=== PATIENT | female | born 1970 | race Caucasian/White ===

== ENCOUNTER → 2016-12-26 | Outpatient (CLI) | payer OTHER | END | disposition home or self-care (01) | LOC: C.LABSPEC 10:40 | PROVIDERS: ATTEND Urology | DX: N20.0 Calculus of kidney (principal) ==

== ENCOUNTER → 2017-01-16 | Outpatient (CLI) | payer OTHER ==
--- NOTE | 2017-01-16 15:10 | DIAGNOSTIC IMAGING REPORT ---
MRI ABDOMEN COMBO CLINICAL HISTORY: N28.89 Renal massE27.9 Adrenal mass, RIGHT FLANK PRESSURE. HYPERTENSION. TECHNIQUE: Imaging was performed prior to and following IV contrast injection. The patient was injected with 8.5 cc of intravenous Gadavist. COMPARISON STUDY: Outside noncontrast CT scan dated 12/14/2016 FINDINGS: Imaging was performed in the coronal and axial planes, before and after administration of gadolinium. There is decreased T1 and T2 signal within the lower pole of the right kidney, consistent with the patient's known 18 mm calculus. No renal masses are visualized. No hepatic masses are visualized. There is no ductal dilatation. No gallbladder abnormalities are visualized. No pancreatic masses are visualized. No splenic masses are visualized. There is no evidence of abdominal aortic aneurysm There is enlargement of the right adrenal gland, which measures approximately 4 cm.. This demonstrates 2 components. The inferior smaller component contains microscopic fat as evidenced in and out of phase imaging. The larger superior component which measures approximately 3 cm demonstrates increased T2 signal, and no microscopic or macroscopic fat. The superior component demonstrates intense heterogeneous enhancement. IMPRESSION: 1. 18 mm right renal calculus 2. 4 cm right adrenal mass which demonstrates 2 distinct elements. The larger superior element measures 3 cm, demonstrates increased T2 signal, no microscopic or macroscopic fat, and demonstrates intense heterogeneous enhancement. This lesion is not typical for a benign adenoma. Entities such as a pheochromocytoma, hypervascular metastasis, or much less likely adrenal cortical carcinoma must be considered along with an atypical appearance of a benign adenoma. Electronically signed by: Dov Nicole M.D. 01/16/2017 3:09 PM Dictated Date/Time: 01/16/2017 2:49 PM
== END | disposition home or self-care (01) ==
LOC: C.MRI 13:33
PROVIDERS: ATTEND Urology
DX: E27.9 Disorder of adrenal gland, unspecified (principal); N28.89 Other specified disorders of kidney and ureter

== ENCOUNTER → 2017-02-13 | Outpatient (CLI) | payer OTHER ==
--- NOTE | 2017-02-13 11:41 | DIAGNOSTIC IMAGING REPORT ---
ULTRASOUND OF THE THYROID GLAND CLINICAL HISTORY: Thyroid goiter. COMPARISON STUDY: No priors. TECHNIQUE: Real-time, grayscale, and color flow sonography of the thyroid gland is performed utilizing a high-frequency linear transducer. Images are reviewed in the transverse and longitudinal planes. FINDINGS: Right lobe: The right lobe of the thyroid gland is normal in size and homogeneous in echotexture, measuring 5.8 x 1.9 x 2.3 cm. There are at least 5 honeycomb nodule is identified in the right thyroid lobe measuring up to 9 mm. Left lobe: The left lobe of the thyroid gland is normal in size and homogeneous in echotexture, measuring 5.2 x 2.0 x 2.7 cm. A solid and cystic nodule in the medial midpole measures 1.2 x 0.9 x 0.9 cm. A honeycomb nodule in the lower pole measures 1.3 x 0.9 x 1.0 cm. Isthmus: The thyroid isthmus is normal in appearance and measures 0.3 cm in AP diameter. IMPRESSION: Multinodular thyroid gland as above. Electronically signed by: John Vale M.D. 02/13/2017 11:40 AM Dictated Date/Time: 02/13/2017 11:38 AM
[2017-02-13 12:27] LABS: ESTIMATED AVERAGE GLUCOSE 108 mg/dl; HA1C FLAG Normal (Normal)
[2017-02-13 13:05] LABS: ALT/SGPT 54 U/L (12-78); BLOOD UREA NITROGEN 7 mg/dl (7-18); BUN/CREATININE RATIO 9.4 (10-20); CALCIUM 9.1 mg/dl (8.5-10.1); CARBON DIOXIDE 26 mmol/L (21-32); CHLORIDE 101 mmol/L (98-107); CHOLESTEROL 269 mg/dl (0-200); CREATININE 0.77 mg/dl (0.60-1.20); GLUCOSE 85 mg/dl (70-99); POTASSIUM 3.5 mmol/L (3.5-5.1); SODIUM 136 mmol/L (136-145)
[2017-02-13 13:14] LABS: ALB/GLOB RATIO 1.2 (0.9-2); ALKALINE PHOSPHATASE 130 U/L (45-117); AST/SGOT 58 U/L (15-37); CHOLESTEROL/HDL RATIO 4.3; HDL CHOLESTEROL 62 mg/dl; LDL CHOLESTEROL CALCULATED 149 mg/dl; TRIGLYCERIDES 291 mg/dl (0-150); VERY LOW DENSITY LIPOPROT CALC 58 mg/dl
[2017-02-17 20:16] LABS: CATECH DOPAMINE 162 pg/mL; CATECH EPINEPHRINE 48 pg/mL; CATECH NOREPINEPRHINE 1595 pg/mL
== END | disposition home or self-care (01) ==
LOC: C.ULTR 10:33
PROVIDERS: ATTEND Internal Medicine Endocrinology, Diabetes & Metabolism
DX: E04.9 Nontoxic goiter, unspecified (principal); E27.9 Disorder of adrenal gland, unspecified

== ENCOUNTER 2017-03-21 05:03 | Inpatient (IN) | payer OTHER ==
[2017-03-04 09:33] VITALS: BMI 29.0
--- NOTE | 2017-03-04 10:01 | PAT Medication Instructions ---
Service Date Mar 04, 2017. Current Home Medication List Amlodipine (Norvasc), 10 MG PO QAM Phenoxybenzamine HCl (Phenoxybenzamine Hydrochl), 2 CAP PO BID Propranolol (Inderal), 80 MG PO HS Varenicline (Chantix), 1 TAB PO BID Medication Instructions For Your Scheduled Surgery - Hold the following medications the morning of surgery: Varenicline (Chantix), 1 TAB PO BID - Take the following medications the morning of surgery with a sip of water OTHERWISE NOTHING TO EAT OR DRINK AFTER MIDNIGHT: Amlodipine (Norvasc), 10 MG PO QAM Phenoxybenzamine HCl (Phenoxybenzamine Hydrochl), 2 CAP PO BID - Take the following medications as scheduled the night before surgery: Phenoxybenzamine HCl (Phenoxybenzamine Hydrochl), 2 CAP PO BID Propranolol (Inderal), 80 MG PO HS Varenicline (Chantix), 1 TAB PO BID If you have any questions please call us at [phone] or [phone] or [phone]
[2017-03-04 10:09] LABS: BASO % 0.5 %; BASO ABS # 0.04 K/uL (0-0.2); COMPLETE YES; EOS % 4.5 %; HEMATOCRIT 33.7 % (37-47); IG% 0.2 %; LYMPH % 30.6 %; LYMPH ABS # 2.54 K/uL (1.2-3.4); MEAN CORPUSCULAR HEMOGLOBIN 24.5 pg (25-34); MEAN CORPUSCULAR HGB CONC 30.6 g/dl (32-36); MEAN PLATELET VOLUME 9.5 fL (7.4-10.4); MONO % 6.7 %; NEUT % 57.5 %; PLATELET COUNT 379 K/uL (130-400); RED BLOOD COUNT 4.21 M/uL (4.2-5.4); WHITE BLOOD COUNT 8.31 K/uL (4.8-10.8)
[2017-03-04 10:20] LABS: BUN/CREATININE RATIO 10.8 (10-20); CALCIUM 8.8 mg/dl (8.5-10.1); CREATININE 0.74 mg/dl (0.60-1.20); POTASSIUM 3.7 mmol/L (3.5-5.1)
[2017-03-04 10:27] LABS: URINE APPEARANCE CLOUDY (CLEAR); URINE BILIRUBIN NEG (NEG); URINE COLOR DK YELLOW; URINE EPITHELIAL CELL AUTO 20-30 /lpf (0-5); URINE NITRITE POS (NEG); URINE SPECIFIC GRAVITY 1.019 (1.000-1.030); UROBILINOGEN NEG (NEG)
--- NOTE | 2017-03-04 10:32 | DIAGNOSTIC IMAGING REPORT ---
CHEST PREADMISSION(PA/LAT) CLINICAL HISTORY: Preoperative chest COMPARISON STUDY: No previous studies for comparison. FINDINGS: The cardiac and mediastinal contours are normal. There is no evidence of focal pulmonary consolidation. There is no evidence of failure. No pleural effusions are visualized.[ IMPRESSION: No active disease in the chest. Electronically signed by: Dov Nicole M.D. 03/04/2017 10:30 AM Dictated Date/Time: 03/04/2017 10:30 AM
[2017-03-04 10:34] LABS: MANUAL MICROSCOPIC REQUIRED? NO; REVIEW REQ? NO
[2017-03-21] VITALS (19 sets, daily range): BP systolic 82–145; BP diastolic 55–81; PULSE 74–94; TEMP 36.6–36.9; O2SAT 92–98; Ht 180.3 cm; Wt 107.5 kg
[~2017-03-21] VITALS: Ht 180.3 cm; Wt 107.5 kg
[~2017-03-21 05:03] MED LIST: AMLO-114 PO; CHN/1 PO; PROP80TA2 PO; [UNRECOGNIZED DRUG - CODE] PO
[2017-03-21] MEDS ORDERED: SCOPOLAMINE 1.5 MG TDSY TD SCH (06:00)
[2017-03-21] MEDS ORDERED: CEFAZOLIN 3000MG IV PUSH 15 ML IV SCH (06:00)
[2017-03-21] MEDS ORDERED: LACTATED RINGER'S 1000ML IV SCH (06:00)
[2017-03-21] MEDS ORDERED: LIDOCAINE HCL 2% 2 ML VIAL (20MG/ML) ONE (06:59)
[2017-03-21] MEDS ORDERED: PROPOFOL IV EMULSION 10 MG/ML 20 ML VIAL IV ONE (06:59)
[2017-03-21] MEDS ORDERED: DEXAMETHASONE SOD INJ 4 MG/ML VIAL ONE (06:59)
[2017-03-21] MEDS ORDERED: ONDANSETRON INJ 2 MG/ML 2 ML VIAL ONE (06:59)
[2017-03-21] MEDS ORDERED: EpHEDrine SULFATE INJ 50 MG/ML AMP IV PRN (07:00)
[2017-03-21] MEDS ORDERED: ONDANSETRON INJ 2 MG/ML 2 ML VIAL IV PRN (07:00)
[2017-03-21] MEDS ORDERED: ATROPINE SULFATE 0.1 MG/ML 5ML SYR IV PRN (07:00)
[2017-03-21] MEDS ORDERED: FENTANYL CITRATE INJ 50 MCG/1 ML 2 ML VIAL ONE ×4 (07:00→12:03)
[2017-03-21] MEDS ORDERED: MIDAZOLAM HCL 1 MG/ML 2ML VIAL ONE (07:00)
[2017-03-21] MEDS ORDERED: SODIUM NITROPRUSSIDE 50 MG/2 ML ONE (07:09)
--- NOTE | 2017-03-21 07:19 | History & Physical Bridge Note ---
H&P Re-Evaluation Bridge Note: I have examined the patient, reviewed the History & Physical and in the interval since the performance of the History & Physical I have noted the following changes of clinical significance: No changes noted Right Adrenalectomy, Robot Asst Laparoscopic.
[2017-03-21] MEDS ORDERED: BUPIVACAINE 0.5 % 5 MG/1 ML MPF 30ML VIAL ONE (07:31)
[2017-03-21] MEDS ORDERED: TISSEEL FIBRIN SEALANT 10ML TOP ONE (09:40)
[2017-03-21] MEDS ORDERED: PHENYLEPHRINE HCL INJ 10 MG/ML VIAL ONE (10:05)
[2017-03-21] MEDS ORDERED: EpHEDrine SULFATE 50MG/5ML SYR ONE (10:05)
[2017-03-21] MEDS ORDERED: PHENYLEPHRINE 100MCG/ML 5ML SYR ONE (10:05)
[2017-03-21] MEDS ORDERED: EpINEphrine INJ 1MG/ML AMP 1 MG/ML AMP ONE (10:05)
[2017-03-21] MEDS ORDERED: ROCURONIUM BROMIDE 10 MG/ML 5 ML VIAL IV ONE (10:10)
[2017-03-21] MEDS: FENTANYL CITRATE INJ 50 MCG/1 ML 2 ML VIAL IV PRN ×3 (11:05→12:02)
--- NOTE | 2017-03-21 11:24 | [facility] Operative Report ---
Operative Report Operative Date Mar 21, 2017. Pre-Operative Diagnosis Adrenal Nodule, Pheochromocytoma, Nephrolithiasis. Post-Operative Diagnosis same as preop Procedure(s) Performed Robot Assisted Right Laparoscopic Adrenalectomy Surgeon Dr. Ramirez Rodriguez Planning Director Surgeon(s) Dr. Gregorio Lea; CRISTINA Holbrook Estimated Blood Loss 50mL Findings Large right adrenal mass. Small adhesions to the abdominal wall on right lower quadrant. Fluids See Anes Report Specimens Right Adrenal Gland Drains None Anesthesia General Complication(s) None Disposition Recovery Room / PACU Indications Patient found to have functional adrenal mass which was determined to be a pheochromocytoma. Patient had labile pressures and was started on first alpha blockade followed by beta blockade by a multidisciplinary team including primary care, cardiology, endocrinology, and urology. Patient was agreeable and consented for the procedure. Description of Procedure Patient was consented and brought back to the operating room. Patient was placed under anesthesia in the supine position. An arterial line for critical pressure monitoring had been placed by anesthesia. Due to diagnosis of pheochromocytoma the patient had aggressive management and blockade preoperatively as well as fluid resuscitation. Anesthesia was closely and critically monitoring the patient throughout the case. The patient was transferred to the lateral position. Appropriate padding and gel rolls were placed. The patient was secured and positioned appropriately. Patient was then prepped and draped in the regular sterile fashion. A time out was completed. With the timeout completed an incision was marked medial to the 12th rib between the midaxillary and midclavicular line. A Varess needle was then inserted into the abdominal cavity and tested with injection and aspiration of saline. No bleeding or other concerning findings. The Varess then was attached to insufflation and the abdomen insufflated to 15mmhg with CO2. A camera port was then placed and the camera laparoscope was placed. The area was examined and no injury visualized. Small amount of adhesions were noted in the right lower quadrant. Two 8 mm robot ports were then placed as well as a 5 mm port for liver retraction and 2 x 10mm assistant oceanographer ports. All were placed under direct visualization. The robot was then docked and the active arms advanced under direct visualization. At this point after docking and activation, the right colon was released at the line of toldt and retracted medial. The liver was freed from lateral attachments and retracted superiorly. The vena cava was then exposed distal to the kidney. Great care was taken to limit manipulation of the adrenal gland/ mass. Dissection was taken along the cava up to the insertion of the right renal vein. At the renal vein, the cava was then dissected superior. A small vein was appreciated superior to the renal vein. It was clipped with hem-a-lock clips and divided. The right lateral edge of the cava was further dissected superiorly. Another small vein was appreciated and clipped and divided in a similar fashion. With clipping and division of this vein, the patient had a decrease in blood pressure and required rapid resuscitation as was expected due to the diagnosis of pheochromocytoma. The patient responded appropriately and blood pressure returned to a normal expected level. Further dissection was taken superiorly to the intersection of the liver and the cava. All attachments were freed and another small vessel was clipped and divided. The inferior and posterior edges of the adrenal gland and surrounding fat were dissected and freed. Small vessels on the inferior edge were controlled with electrocautery. The superior attachments to the liver were also freed. Finally , lateral attachments were freed and the adrenal gland was mobilized and bagged. The entire wound bed was examined. No bleeding or other areas of concern were noted. The bed was instilled with a sealant for assistance with hemostasis. The liver, superior kidney, renal hilum, and abdominal wall were all inspected with no injury or areas of concern. The specimen had been bagged and placed through the superior assistant oceanographer port. At this point, retraction of the liver was released. The ports were visualized with no areas of concern or injury. The robot was undocked and the insufflation released. Ports were then removed. The incision lateral to the umbilicus was opened with a scalpel and the subcutaneous tissue and fascia opened to allow intact removal of the specimen. The area was cleaned. The fascial layers of the camera port and the paramedian incision were closed with a 1-0 PDS suture. The subcutaneous tissues of the paramedian incision were closed with an 1-0 Vicryl. The skin was closed with a running 4-0 monocryl suture. Skin glue was placed. Dr. Gregorio Lea and CRISTINA Holbrook assisted with port placement, robot docking, port removal/closure, and skin closure. Dr. Lea also first assisted and was involved in surgical dissection, clipping/control of vessels, and anatomic identification as well as close monitoring of patient status during critical portions of the procedure. The patient was cleaned, aroused from anesthesia, and transferred to the pacu in stable condition having tolerated the procedure well with no complications. I was present and participated in all aspects of the procedure. The patient will be monitored in the PACU until transferred. I attest to the content of the Intraoperative Record and any orders documented therein. Any exceptions are noted below.
[2017-03-21 11:26] LABS: HEMATOCRIT 31.8 % (37-47); MEAN CELL VOLUME 79.3 fL (80-100); MEAN CORPUSCULAR HEMOGLOBIN 24.4 pg (25-34); MEAN PLATELET VOLUME 9.2 fL (7.4-10.4); PLATELET COUNT 306 K/uL (130-400); RED BLOOD COUNT 4.01 M/uL (4.2-5.4); WHITE BLOOD COUNT 15.17 K/uL (4.8-10.8)
[2017-03-21 11:29] LABS: MEAN CORPUSCULAR HGB CONC 30.8 g/dl (32-36)
--- NOTE | 2017-03-21 11:34 | Anesthesiology Progress Note ---
Anesthesia Post Op Note Date & Time Mar 21, 2017 at 11:34 Vital Signs Pain Intensity: 4 Vital Signs Past 12 Hours Date Time Temp Pulse Resp B/P (MAP) Pulse Ox O2 Delivery O2 Flow Rate FiO2 03/21/17 11:25 76 14 119/70 (80) 94 Nasal Cannula 4 128/71 (91) 03/21/17 11:15 79 14 120/72 (79) 94 Nasal Cannula 4 119/63 (83) 03/21/17 11:05 77 14 122/79 (103) 99 Mask 10 03/21/17 10:55 70 12 125/75 (91) 97 Mask 10 126/64 (86) 03/21/17 10:45 36.1 72 12 117/87 (94) 98 Mask 10 133/67 03/21/17 05:35 36.8 86 20 104/72 98 Room Air Notes Mental Status: alert / awake / arousable, participated in evaluation Pt Amnestic to Procedure: Yes Nausea / Vomiting: adequately controlled Pain: adequately controlled Airway Patency, RR, SpO2: stable & adequate BP & HR: stable & adequate Hydration State: stable & adequate Anesthetic Complications: no major complications apparent
[2017-03-21 11:46] LABS: CALCIUM 7.8 mg/dl (8.5-10.1); CREATININE 0.84 mg/dl (0.60-1.20); POTASSIUM 4.3 mmol/L (3.5-5.1)
[2017-03-21] MEDS: LACTATED RINGER'S 1000ML 1,000 ML IV SCH ×3 (13:31→23:22)
[2017-03-21 13:32] LABS: PROTHROMBIN TIME (PATIENT) 10.6 SECONDS (9.0-12.0)
[2017-03-21] MEDS: HYDROmorphone INJ 1 MG/ML SYR IV PRN ×3 (13:32→21:28)
[2017-03-21] MEDS: ACETAMINOPHEN 500 MG TAB PO SCH ×2 (15:24→19:38)
[2017-03-21] MEDS: OXYCODONE/ACETAMINOPHEN 7.5-325 TAB PO PRN ×3 (15:28→23:23)
--- NOTE | 2017-03-21 15:52 | Cardiology Consultation ---
Cardiology Consultation Date of Consultation: Mar 21, 2017. Requesting Physician: Michael Reason for Consultation: pheochromocytoma Pt evaluation today including: conversation w/ patient, physical exam, chart review, lab review, review of studies, conversation w/ consultant teacher, review of inpatient medication list History of Present Illness Patient is a 46-year-old woman who underwent a resection of pheochromocytoma earlier today. She was incidentally discovered to have severe high blood pressure and underwent a routine evaluation for hypertension. Based on her symptoms evaluation for pheochromocytoma was performed which did reveal evidence of elevated urine metanephrines and eventual diagnosis of an adrenal mass. The preoperative. She has been started on both nonselective alpha and beta blockade with good effect. Her surgery appears to have been uncomplicated today with the exception of a brief period of hypotension. At the time of the interview the patient does have some operative discomfort. She denies any dizziness or lightheadedness. She denies any sense of flushing. She has little appetite currently and is drowsy. At the time of her diagnosis the patient was essentially asymptomatic. She did report occasional feelings of anxiety and jitteriness. She also had periods of flushing on occasion. With institution of medical therapy she had very mild symptoms of orthostatic hypotension on occasion. She has been ingesting higher amounts of salt and maintain good fluid intake by direction. Past Medical/Surgical History Hyperlipidemia Pheochromocytoma Nephrolithiasis Multinodular goiter Surgical history Tonsillectomy Family History No premature coronary disease Social History Smoking Status: Current Every Day Smoker History of Alcohol Use: No Review of Systems Patient is currently drowsy and somewhat sedated. Complete review of systems was unobtainable. All Other Systems: Reviewed and Negative Allergies Coded Allergies: Iodine (Verified Allergy, Unknown, HIVES, 03/21/17) PT REPORTS IODINE ALLERGY WAS R/T INJECTABLE DYE - DENIES ALLERGY WITH TOPICAL IODINE Medications Current Inpatient Medications Medications (Trade) Dose Ordered Sig/Kedar Route Start Time Stop Time Status Last Admin Dose Admin Cefazolin Sodium 15 ml @ 3 mls/min PREOP IV 03/21/17 06:00 03/21/17 18:00 03/21/17 07:32 3 MLS/MIN Lactated Ringer's 1,000 ml @ 60 mls/hr [id number] IV 03/21/17 06:00 03/21/17 22:39 03/21/17 05:50 60 MLS/HR Miscellaneous (Remove Transderm-Scop Patch) 1 ea Q72H N/A 03/24/17 06:00 03/24/17 06:01 Miscellaneous Information (Check Scopolamine Patch Placement) 1 ea QS N/A 03/21/17 16:00 03/24/17 05:59 Acetaminophen (Tylenol Tab) 500 mg Q6H PO 03/21/17 14:00 04/20/17 13:59 Cefazolin Sodium 3000 mg/Syringe 15 ml @ 3 mls/min Q8H IV 03/21/17 20:00 03/22/17 04:04 Docusate Sodium (coLACE CAP) 100 mg BID PO 03/21/17 21:00 04/20/17 20:59 Heparin Sodium (Porcine) (Heparin Sq 5000 Unit/0.5ml) 5,000 unit Q12H SQ 03/21/17 19:00 04/20/17 18:59 Hydromorphone HCl (Dilaudid Inj) 1 mg Q2H PRN IV 03/21/17 10:45 04/04/17 10:44 03/21/17 13:32 1 MG Lactated Ringer's 1,000 ml @ 150 mls/hr Q6H40M IV 03/21/17 13:00 04/20/17 12:59 03/21/17 13:31 150 MLS/HR Ondansetron HCl (Zofran Inj) 4 mg Q6H PRN IV 03/21/17 10:45 04/20/17 10:44 Oxycodone/ Acetaminophen (Percocet 7.5-325MG Tab) Hold Tylenol if given Q4H PRN PO 03/21/17 10:45 04/04/17 10:44 Amlodipine Besylate (Norvasc Tab) 10 mg QAM PO 03/22/17 09:00 04/21/17 08:59 Propranolol HCl (Inderal Tab) 80 mg HS PO 03/21/17 21:00 04/20/17 20:59 Miscellaneous Information (Order Awaiting Action) 1 ea QS N/A 03/21/17 16:00 04/20/17 15:59 Miscellaneous Information (Order Awaiting Action) 1 ea QS N/A 03/21/17 16:00 04/20/17 15:59 Physical Exam Vital Signs Past 12 Hours Date Time Temp Pulse Resp B/P (MAP) Pulse Ox O2 Delivery O2 Flow Rate FiO2 03/21/17 14:31 78 14 102/68 (79) 94 Nasal Cannula 4.0 03/21/17 14:16 78 15 92/69 (77) 94 Nasal Cannula 4.0 03/21/17 14:15 80 12 91/74 (80) 94 Nasal Cannula 4.0 03/21/17 14:01 74 15 89/73 (78) 94 Nasal Cannula 4.0 03/21/17 14:00 76 14 87/67 (74) 94 Nasal Cannula 4.0 03/21/17 13:01 78 21 125/76 (103) 93 145/81 03/21/17 13:00 79 19 (100) 93 138/78 03/21/17 12:46 103/68 (89) 03/21/17 12:15 73 16 115/73 (89) 94 Nasal Cannula 4 120/55 (77) 03/21/17 12:05 76 16 110/75 (85) 94 Nasal Cannula 4 127/59 (81) 03/21/17 11:50 70 16 107/76 (89) 95 Nasal Cannula 4 129/66 (87) 03/21/17 11:35 36.4 72 16 112/77 (89) 94 Nasal Cannula 4 131/69 (90) 03/21/17 11:25 76 14 119/70 (80) 94 Nasal Cannula 4 128/71 (91) 03/21/17 11:15 79 14 120/72 (79) 94 Nasal Cannula 4 119/63 (83) 03/21/17 11:05 77 14 122/79 (103) 99 Mask 10 03/21/17 10:55 70 12 125/75 (91) 97 Mask 10 126/64 (86) 03/21/17 10:45 36.1 72 12 117/87 (94) 98 Mask 10 133/67 03/21/17 05:35 36.8 86 20 104/72 98 Room Air She is alert and oriented x3. Mood affect appear normal. She answered all questions appropriately. HEENT: Sclerae are anicteric. Pupils are equal and reactive to light and accommodation. Extraocular movements were intact. Neuro: Cranial nerves intact Neck: Examination of the submandibular region did not reveal any significant lymphadenopathy. Carotids are palpable bilaterally and free of bruits on auscultation. There was no evidence of jugular venous distention. Lungs: Lungs are clear to auscultation bilaterally. There are no rales wheezes or rhonchi. She has normal respiratory effort without use of accessory muscles. There is normal pulmonary excursion. Cardiac: The rhythm was regular. S1 and S2 were normal. There are no murmurs on examination. The PMI was not markedly displaced on palpation. Extremities: Patient has bilateral radial pulses that are equal in intensity. There is no evidence cyanosis or clubbing. There was no evidence of significant peripheral edema bilaterally. Skin: There are no rashes noted on examination today. Data Laboratory Results: Last 24 Hours Test 03/21/17 11:06 03/21/17 13:07 White Blood Count 15.17 K/uL Red Blood Count 4.01 M/uL Hemoglobin 9.8 g/dL Hematocrit 31.8 % Mean Corpuscular Volume 79.3 fL Mean Corpuscular Hemoglobin 24.4 pg Mean Corpuscular Hemoglobin Concent 30.8 g/dl RDW Standard Deviation 45.8 fL RDW Coefficient of Variation 15.7 % Platelet Count 306 K/uL Mean Platelet Volume 9.2 fL Sodium Level 136 mmol/L Potassium Level 4.3 mmol/L Chloride Level 107 mmol/L Carbon Dioxide Level 25 mmol/L Anion Gap 4.0 mmol/L Blood Urea Nitrogen 9 mg/dl Creatinine 0.84 mg/dl Est Creatinine Clear Calc Drug Dose 106.1 ml/min Estimated GFR () 95.9 Estimated GFR (Non- 82.8 BUN/Creatinine Ratio 11.0 Random Glucose 116 mg/dl Calcium Level 7.8 mg/dl Prothrombin Time 10.6 SECONDS Prothromb Time International Ratio 1.0 Activated Partial Thromboplast Time 26.8 SECONDS Partial Thromboplastin Ratio 1.0 Telemetry reviewed: Normal sinus rhythm Assessment & Plan 1. Hypertension: Patient has hypertension most likely related to her pheochromocytoma. In the preoperative. She appears to have good control of her blood pressure with nonselective alpha and beta antagonists. In the perioperative. She has had an element of hypotension. Seems reasonable this point to manage her expectantly. No antihypertensive the current Adriana being administered. I think the most important intervention would be good hydration. She has intravenous fluids running currently and has a Izaguirre catheter in place. Good urine output would suggest adequate intravascular volume. In the event the patient has notable Hypertension nitroprusside could be used in an urgent situation. Based on hemodynamics a standard antihypertensive regimen could be re-initiated at the time of discharge. Currently she is on amlodipine as well as beta and alpha blockade. 2. Left ventricular hypertrophy: This was reportedly severe on echocardiogram performed in the outpatient setting. Most likely this is related to her longstanding, untreated high blood pressure. I would anticipate her blood pressure being better after removal of the adrenal mass. However she will still need to be monitored for high blood pressure and perhaps continued on medications specifically beta-eddy if her blood pressures remain high. Hopefully we will see some regression of her hypertrophy over time. 3. Diastolic dysfunction: Reported as stage II on her recent echocardiogram. This likely related to severe LVH. Maintaining good hydration use of a beta- eddy would be the most effective intervention. Hopefully we will see some regression as her blood pressures come down other pheochromocytoma has been resected.
[2017-03-21] MEDS: CHECK SCOPOLAMINE PATCH PLACEMENT SCH ×2 (16:30→23:26)
--- NOTE | 2017-03-21 16:38 | Critical Care Consultation ---
Critical Care Consultation Date of Consultation: Mar 21, 2017. Attending Physician: Ramirez Rodriguez D.O. Reason for Consultation: s/p adrenalectomy for pheochromocytoma; for BP control History of Present Illness 46 yo female with Hx of HTN, smoking nephrolithiasis who was found to have significantly elevated BP as outpt as positive metanephrines confirming diagnosis of Pheochromocytoma; Patient then was found to have an adrenal mass; Pre op was treated with alpha and then beta blockers. Today she underwent elective robot assisted adrenalectomy. Intraoperatively had non significant blood loss; but is reported to have a hypotensive episode for which an Epi x 1 was given; Post op patient was extubated in the PACU and arrived to MICU in stable condition without complaints; Currently has post discomfort; denied dizziness; lightheadedness/ flushing/ pains; some anxiety is reported; Past Medical/Surgical History Hyperlipidemia Pheochromocytoma Nephrolithiasis Multinodular goiter/ s/p Adrenalectomy s/p Tonsillectomy Social History Smoking Status: Current Every Day Smoker Allergies Coded Allergies: Iodine (Verified Allergy, Unknown, HIVES, 03/21/17) PT REPORTS IODINE ALLERGY WAS R/T INJECTABLE DYE - DENIES ALLERGY WITH TOPICAL IODINE Home Medications Scheduled Amlodipine (Norvasc), 10 MG PO QAM Phenoxybenzamine HCl (Phenoxybenzamine Hydrochl), 2 CAP PO BID Propranolol (Inderal), 80 MG PO HS Varenicline (Chantix), 1 TAB PO BID Current Inpatient Medications Current Inpatient Medications Medications (Trade) Dose Ordered Sig/Kedar Route Start Time Stop Time Status Last Admin Dose Admin Cefazolin Sodium 15 ml @ 3 mls/min PREOP IV 03/21/17 06:00 03/21/17 18:00 03/21/17 07:32 3 MLS/MIN Lactated Ringer's 1,000 ml @ 60 mls/hr [id number] IV 03/21/17 06:00 03/21/17 22:39 03/21/17 05:50 60 MLS/HR Miscellaneous (Remove Transderm-Scop Patch) 1 ea Q72H N/A 03/24/17 06:00 03/24/17 06:01 Miscellaneous Information (Check Scopolamine Patch Placement) 1 ea QS N/A 03/21/17 16:00 03/24/17 05:59 Acetaminophen (Tylenol Tab) 500 mg Q6H PO 03/21/17 14:00 04/20/17 13:59 Cefazolin Sodium 3000 mg/Syringe 15 ml @ 3 mls/min Q8H IV 03/21/17 20:00 03/22/17 04:04 Docusate Sodium (coLACE CAP) 100 mg BID PO 03/21/17 21:00 04/20/17 20:59 Heparin Sodium (Porcine) (Heparin Sq 5000 Unit/0.5ml) 5,000 unit Q12H SQ 03/21/17 19:00 04/20/17 18:59 Hydromorphone HCl (Dilaudid Inj) 1 mg Q2H PRN IV 03/21/17 10:45 04/04/17 10:44 03/21/17 13:32 1 MG Lactated Ringer's 1,000 ml @ 150 mls/hr Q6H40M IV 03/21/17 13:00 04/20/17 12:59 03/21/17 13:31 150 MLS/HR Ondansetron HCl (Zofran Inj) 4 mg Q6H PRN IV 03/21/17 10:45 04/20/17 10:44 Oxycodone/ Acetaminophen (Percocet 7.5-325MG Tab) Hold Tylenol if given Q4H PRN PO 03/21/17 10:45 04/04/17 10:44 03/21/17 15:28 1 TAB Amlodipine Besylate (Norvasc Tab) 10 mg QAM PO 03/22/17 09:00 04/21/17 08:59 Propranolol HCl (Inderal Tab) 80 mg HS PO 03/21/17 21:00 04/20/17 20:59 Miscellaneous Information (Order Awaiting Action) 1 ea QS N/A 03/21/17 16:00 04/20/17 15:59 Miscellaneous Information (Order Awaiting Action) 1 ea QS N/A 03/21/17 16:00 04/20/17 15:59 Review of Systems non contributory Physical Exam Date Time Temp Pulse Resp B/P (MAP) Pulse Ox O2 Delivery O2 Flow Rate FiO2 03/21/17 16:01 36.6 83 15 138/74 (95) 92 Nasal Cannula 2.0 03/21/17 15:01 81 13 110/79 (89) 95 Nasal Cannula 4.0 03/21/17 14:31 78 14 102/68 (79) 94 Nasal Cannula 4.0 03/21/17 14:16 78 15 92/69 (77) 94 Nasal Cannula 4.0 03/21/17 14:15 80 12 91/74 (80) 94 Nasal Cannula 4.0 03/21/17 14:01 74 15 89/73 (78) 94 Nasal Cannula 4.0 03/21/17 14:00 76 14 87/67 (74) 94 Nasal Cannula 4.0 03/21/17 13:01 78 21 125/76 (103) 93 145/81 03/21/17 13:00 79 19 (100) 93 138/78 03/21/17 12:46 103/68 (89) 03/21/17 12:15 73 16 115/73 (89) 94 Nasal Cannula 4 120/55 (77) 03/21/17 12:05 76 16 110/75 (85) 94 Nasal Cannula 4 127/59 (81) 03/21/17 11:50 70 16 107/76 (89) 95 Nasal Cannula 4 129/66 (87) 03/21/17 11:35 36.4 72 16 112/77 (89) 94 Nasal Cannula 4 131/69 (90) 03/21/17 11:25 76 14 119/70 (80) 94 Nasal Cannula 4 128/71 (91) 03/21/17 11:15 79 14 120/72 (79) 94 Nasal Cannula 4 119/63 (83) 03/21/17 11:05 77 14 122/79 (103) 99 Mask 10 03/21/17 10:55 70 12 125/75 (91) 97 Mask 10 126/64 (86) 03/21/17 10:45 36.1 72 12 117/87 (94) 98 Mask 10 133/67 03/21/17 05:35 36.8 86 20 104/72 98 Room Air General Appearance: well-appearing, WD/WN, no apparent distress Head: normocephalic Eyes: PERRLA, no discharge, EOMI Neck: normal range of motion, no tenderness Respiratory: breath sounds normal, clear to auscultation Cardiovasular: regular rate/rhythm, normal S1S2 Abdomen: non tender Lower Extremities: no edema Psychiatric: normal affect Laboratory Results Last 24 Hours Test 11/30/17 11:06 03/21/17 13:07 White Blood Count 15.17 K/uL Red Blood Count 4.01 M/uL Hemoglobin 9.8 g/dL Hematocrit 31.8 % Mean Corpuscular Volume 79.3 fL Mean Corpuscular Hemoglobin 24.4 pg Mean Corpuscular Hemoglobin Concent 30.8 g/dl RDW Standard Deviation 45.8 fL RDW Coefficient of Variation 15.7 % Platelet Count 306 K/uL Mean Platelet Volume 9.2 fL Sodium Level 136 mmol/L Potassium Level 4.3 mmol/L Chloride Level 107 mmol/L Carbon Dioxide Level 25 mmol/L Anion Gap 4.0 mmol/L Blood Urea Nitrogen 9 mg/dl Creatinine 0.84 mg/dl Est Creatinine Clear Calc Drug Dose 106.1 ml/min Estimated GFR () 95.9 Estimated GFR (Non- 82.8 BUN/Creatinine Ratio 11.0 Random Glucose 116 mg/dl Calcium Level 7.8 mg/dl Prothrombin Time 10.6 SECONDS Prothromb Time International Ratio 1.0 Activated Partial Thromboplast Time 26.8 SECONDS Partial Thromboplastin Ratio 1.0 Assessment & Plan (1) Pheochromocytoma 46 yo female s/p adrenalectomy for Pheochromocytoma with stable postop BP and vitals; PLAN: Neuro - no issues Pulm - on RA s/p extubated CV - A line in place; Cardiology consult appreciated; Hypertension due to pheochromocytoma resolved; Preop c/w Norvasc, Propranolol; If BP becomes too high will use Nitroprusside as advised by cardiology; LVH noted on echo as outpt likely due to untreated hypertension per cardiology. The management is to c/w beta blockers and hydrations Hypotension postop --> c/w IVF for now; ID - on post Abx Cefazolin Renal - on IVF for relative hypotension; cr 0.8; monitor UO; aguilar in place; GI - diet as tolerated; will defer to surgery DVT prophylaxis post; I have personally spent 35 minutes of critical care time in the direct management of this patient. This is a life/limb threatening event. This includes time spent evaluating patient, direct bedside care, chart review, placing orders, interpretation of diagnostic studies, discussion with consultants, patient, and family members, as well as other required patient management activities. This time is exclusive of all separately billable procedures, and teaching time and separate from and in addition to any other critical care service time. Met with patient and immediate family, answered all the questions to the best of my ability.
[2017-03-21] MEDS: DOCUSATE SODIUM 100 MG CAP PO SCH (19:33)
[2017-03-21] MEDS: HEPARIN SOD 5000 UNIT/0.5 ML CARP SQ SCH (19:36)
[2017-03-21] MEDS: PROPRANOLOL HCL 80 MG TAB PO SCH (21:21)
[2017-03-21] MEDS: CEFAZOLIN IV 3,000 MG in SYRINGE 0 ML IV SCH (21:21)
[2017-03-22] VITALS (12 sets, daily range): BP systolic 96–120; BP diastolic 60–87; PULSE 68–88; TEMP 36.6–37; O2SAT 89–93
[2017-03-22] MEDS: HYDROmorphone INJ 1 MG/ML SYR IV PRN ×5 (01:07→19:24)
[2017-03-22] MEDS: ACETAMINOPHEN 500 MG TAB PO SCH ×4 (02:00→21:35)
[2017-03-22] MEDS: CEFAZOLIN IV 3,000 MG in SYRINGE 0 ML IV SCH (03:28)
[2017-03-22] MEDS: OXYCODONE/ACETAMINOPHEN 7.5-325 TAB PO PRN ×3 (03:29→15:48)
[2017-03-22 06:07] LABS: BASO % 0.1 %; BASO ABS # 0.02 K/uL (0-0.2); COMPLETE YES; EOS % 0.1 %; HEMATOCRIT 30.3 % (37-47); IG% 0.3 %; LYMPH % 16.4 %; LYMPH ABS # 2.46 K/uL (1.2-3.4); MEAN CELL VOLUME 80.4 fL (80-100); MEAN CORPUSCULAR HEMOGLOBIN 24.4 pg (25-34); MEAN CORPUSCULAR HGB CONC 30.4 g/dl (32-36); MEAN PLATELET VOLUME 9.1 fL (7.4-10.4); MONO % 8.3 %; NEUT % 74.8 %; PLATELET COUNT 326 K/uL (130-400); RED BLOOD COUNT 3.77 M/uL (4.2-5.4)
[2017-03-22 06:38] LABS: BUN/CREATININE RATIO 12.1 (10-20); CALCIUM 8.1 mg/dl (8.5-10.1); CREATININE 0.93 mg/dl (0.60-1.20); POTASSIUM 3.8 mmol/L (3.5-5.1)
[2017-03-22] MEDS: CHECK SCOPOLAMINE PATCH PLACEMENT SCH ×3 (08:00→23:07)
--- NOTE | 2017-03-22 08:03 | Progress Note ---
Subjective Date of Service: Mar 22, 2017. (Christiana Haro CRNP) Subjective Pt evaluation today including: conversation w/ patient, chart review, lab review Voiding: aguilar catheter in place (patent, draining clear, yellow urine) 46 yo female s/p right adrenalectomy for pheochromocytoma. One episode of hypotension overnight, but has since improved. Pt c/o abdominal pain this morning. Denies n/v. Tolerating clear liquids. Denies flatus or BM. She has been OOB to chair. Labs stable. I&Os acceptable. (Christiana Haro CRNP) Pt evaluation today including: conversation w/ patient Pain: Moderate this Am with distension. Pain medications help PO Intake: Clears Voiding: aguilar catheter in place Patient distended this AM and having some pain with deep inhalation. Pain meds improve greatly. OOB. Tolerating clears. Aguilar draining well. No flatus or bm 1 episode of hypotension last pm otherwise vital have been stable. No other changes or issues. (Ramirez Rodriguez, D.O.) Problem List 1. Pheochromocytoma 2. POD #1 s/p Right Adrenalectomy (Ramirez Rodriguez, D.O.) Review of Systems Constitutional: No fever, No chills Respiratory: No shortness of breath Cardiac: No chest pain Abdomen: No pain, No nausea, No vomiting Female : No hematuria Heme: No abnormal bleeding/bruising (Christiana Haro CRNP) All Other Systems: Reviewed and Negative (All reviewed. Pertinent positives and negatives in HPI) (Ramirez Rodriguez, D.O.) Objective Vital Signs Date Time Temp Pulse Resp B/P (MAP) Pulse Ox O2 Delivery O2 Flow Rate FiO2 03/22/17 06:00 74 23 118/77 (91) 92 Nasal Cannula 2.0 03/22/17 04:00 91 Nasal Cannula 2.0 03/22/17 04:00 36.9 87 16 119/87 (98) 91 Nasal Cannula 2.0 03/22/17 02:00 81 15 109/74 (86) 91 Nasal Cannula 2.0 03/22/17 00:01 36.7 79 15 120/67 (84) 90 Nasal Cannula 2.0 03/21/17 23:59 93 Nasal Cannula 2.0 03/21/17 22:01 81 20 111/72 (85) 94 Nasal Cannula 2.0 03/21/17 21:06 81 16 114/71 (85) 95 Nasal Cannula 2.0 03/21/17 21:01 79 15 82/67 (72) 94 Nasal Cannula 2.0 03/21/17 20:01 36.9 82 15 118/68 (85) 94 Nasal Cannula 2.0 03/21/17 20:00 Nasal Cannula 2.0 03/21/17 19:02 94 20 136/71 (92) 92 Nasal Cannula 2.0 03/21/17 18:01 83 14 100/55 (70) 92 Nasal Cannula 2.0 03/21/17 17:01 89 18 133/71 (91) 92 Nasal Cannula 2.0 03/21/17 16:01 36.6 83 15 138/74 (95) 92 Nasal Cannula 2.0 03/21/17 16:00 Nasal Cannula 2.0 03/21/17 15:01 81 13 110/79 (89) 95 Nasal Cannula 4.0 03/21/17 14:31 78 14 102/68 (79) 94 Nasal Cannula 4.0 03/21/17 14:16 78 15 92/69 (77) 94 Nasal Cannula 4.0 03/21/17 14:15 80 12 91/74 (80) 94 Nasal Cannula 4.0 03/21/17 14:01 74 15 89/73 (78) 94 Nasal Cannula 4.0 03/21/17 14:00 76 14 87/67 (74) 94 Nasal Cannula 4.0 03/21/17 13:01 78 21 125/76 (103) 93 145/81 03/21/17 13:00 79 19 (100) 93 138/78 03/21/17 12:46 103/68 (89) 03/21/17 12:15 73 16 115/73 (89) 94 Nasal Cannula 4 120/55 (77) 03/21/17 12:05 76 16 110/75 (85) 94 Nasal Cannula 4 127/59 (81) 03/21/17 11:50 70 16 107/76 (89) 95 Nasal Cannula 4 129/66 (87) 03/21/17 11:35 36.4 72 16 112/77 (89) 94 Nasal Cannula 4 131/69 (90) 03/21/17 11:25 76 14 119/70 (80) 94 Nasal Cannula 4 128/71 (91) 03/21/17 11:15 79 14 120/72 (79) 94 Nasal Cannula 4 119/63 (83) 03/21/17 11:05 77 14 122/79 (103) 99 Mask 10 03/21/17 10:55 70 12 125/75 (91) 97 Mask 10 126/64 (86) 03/21/17 10:45 36.1 72 12 117/87 (94) 98 Mask 10 133/67 (Christiana Haro, SOFTWARE SUPPORT REPRESENTATIVE) Physical Exam General Appearance: no apparent distress Eyes: normal inspection ENT: hearing grossly normal Neck: no JVD Respiratory/Chest: no respiratory distress, no accessory muscle use Cardiovascular: no JVD Abdomen: + distended, + tenderness, + pertinent finding (abdominal incisions c/ d/i) Extremities: normal inspection Neurologic/Psychiatric: alert, normal mood/affect, oriented x 3 Skin: normal color (Christiana Haro, SOFTWARE SUPPORT REPRESENTATIVE) General Appearance: WD/WN, no apparent distress Eyes: normal inspection ENT: normal ENT inspection Neck: supple, no JVD Respiratory/Chest: chest non-tender, no respiratory distress, no accessory muscle use Cardiovascular: regular rate, rhythm Abdomen: + distended, + tenderness Extremities: normal range of motion, no pedal edema, no calf tenderness Neurologic/Psychiatric: sew out operator II-XII nml as tested, no motor/sensory deficits, alert, normal mood/affect, oriented x 3 Skin: normal color, warm/dry Lymphatic: no adenopathy (Ramirez Rodriguez D.OAdwoa) Laboratory Results Last 24 Hours Test 03/21/17 11:06 03/21/17 13:07 03/21/17 16:26 03/21/17 19:41 White Blood Count 15.17 K/uL Red Blood Count 4.01 M/uL Hemoglobin 9.8 g/dL Hematocrit 31.8 % Mean Corpuscular Volume 79.3 fL Mean Corpuscular Hemoglobin 24.4 pg Mean Corpuscular Hemoglobin Concent 30.8 g/dl RDW Standard Deviation 45.8 fL RDW Coefficient of Variation 15.7 % Platelet Count 306 K/uL Mean Platelet Volume 9.2 fL Sodium Level 136 mmol/L Potassium Level 4.3 mmol/L Chloride Level 107 mmol/L Carbon Dioxide Level 25 mmol/L Anion Gap 4.0 mmol/L Blood Urea Nitrogen 9 mg/dl Creatinine 0.84 mg/dl Est Creatinine Clear Calc Drug Dose 106.1 ml/min Estimated GFR () 95.9 Estimated GFR (Non- 82.8 BUN/Creatinine Ratio 11.0 Random Glucose 116 mg/dl Calcium Level 7.8 mg/dl Prothrombin Time 10.6 SECONDS Prothromb Time International Ratio 1.0 Activated Partial Thromboplast Time 26.8 SECONDS Partial Thromboplastin Ratio 1.0 Bedside Glucose 141 mg/dl 164 mg/dl Test 03/22/17 05:48 White Blood Count 15.00 K/uL Red Blood Count 3.77 M/uL Hemoglobin 9.2 g/dL Hematocrit 30.3 % Mean Corpuscular Volume 80.4 fL Mean Corpuscular Hemoglobin 24.4 pg Mean Corpuscular Hemoglobin Concent 30.4 g/dl Platelet Count 326 K/uL Mean Platelet Volume 9.1 fL Neutrophils (%) (Auto) 74.8 % Lymphocytes (%) (Auto) 16.4 % Monocytes (%) (Auto) 8.3 % Eosinophils (%) (Auto) 0.1 % Basophils (%) (Auto) 0.1 % Neutrophils # (Auto) 11.22 K/uL Lymphocytes # (Auto) 2.46 K/uL Monocytes # (Auto) 1.25 K/uL Eosinophils # (Auto) 0.01 K/uL Basophils # (Auto) 0.02 K/uL RDW Standard Deviation 45.9 fL RDW Coefficient of Variation 15.7 % Immature Granulocyte % (Auto) 0.3 % Immature Granulocyte # (Auto) 0.04 K/uL Sodium Level 135 mmol/L Potassium Level 3.8 mmol/L Chloride Level 103 mmol/L Carbon Dioxide Level 26 mmol/L Anion Gap 6.0 mmol/L Blood Urea Nitrogen 11 mg/dl Creatinine 0.93 mg/dl Est Creatinine Clear Calc Drug Dose 95.8 ml/min Estimated GFR () 84.8 Estimated GFR (Non- 73.2 BUN/Creatinine Ratio 12.1 Random Glucose 98 mg/dl Calcium Level 8.1 mg/dl (Christiana Haro CRNP) Assessment and Plan POD #1 s/p right adrenalectomy for pheochromocytoma AFVSS. Clinically stable. Pt with abdominal pain and distention post-op. Will add Toradol for pain. She will remain on clear, liquids for now. Encourage ambulation to hallway. Encourage use of IS. Will plan to transfer her to telemetry today and consult hospitalist service. (Christiana Haro CRNP) 1. POD1 s/p Right Robot Asst Laparoscopic Adrenalectomy 2. Pheochromocytoma 3. LVH 4. Secondary HTN s/p adrenalectomy Transfer to Tele floor for further monitoring. Will consult hospitalist for assistance with medical management and close monitoring of blood pressure post operatively. Appreciate consultation yesterday from Cardiology and Critical care and will continue with plan for post operative monitoring. Will monitor for signs of adrenal insufficiency as well as monitoring for cardiac or blood pressure issues. Increase activity. Utilize incentive spirometer q1 hr. Continue clears today and slowly increase portions. Ambulate with assist. Aguilar removed. Continue pain medication and management. Continue stool softner. DVT prophylaxis and CYNDY/SCDs Continued [facility] stay due to: other (Critical management postoperatively) (Ramirez Rodriguez, D.O.)
[2017-03-22] MEDS: KETOROLAC TROMETHAMINE 30 MG/ML VIAL IV PRN ×2 (08:43→15:49)
[2017-03-22] MEDS: DOCUSATE SODIUM 100 MG CAP PO SCH ×2 (08:46→21:35)
[2017-03-22] MEDS: HEPARIN SOD 5000 UNIT/0.5 ML CARP SQ SCH ×2 (08:48→19:22)
[2017-03-22] MEDS ORDERED: AMLODIPINE BESYLATE 5 MG TAB PO SCH (09:00)
--- NOTE | 2017-03-22 11:13 | History and Physical ---
History & Physical Date & Time of Service: Mar 22, 2017 at 10:53 Chief Complaint: Pheochromocytoma Primary Care Physician: Christiana Russo M.D. History of Present Illness Source: patient, hospital records 46 y/o F Hx Pheochromocytoma diagnosed 12/06, secondary HTN, LVH - presented for R adrenalectomy 03/21. Surgery reported uncomplicated - pt was appropriately B blocked prior. An episode of transient hypotension was reported the night following surgery which resolved with IVF - she has otherwise been stable. She denies CP, palpitations, SOB, N/V, fevers or uncontrolled pain at the surgical site. Past Medical/Surgical History 1) Pheochromocytoma 2) HTN - secondary 3) LVH 4) Tobacco abuse Family History Noncontributory to current management Social History Smoking Status: Current Every Day Smoker Allergies Coded Allergies: Iodine (Verified Allergy, Unknown, HIVES, 03/21/17) PT REPORTS IODINE ALLERGY WAS R/T INJECTABLE DYE - DENIES ALLERGY WITH TOPICAL IODINE Home Medications Scheduled Amlodipine (Norvasc), 10 MG PO QAM Phenoxybenzamine HCl (Phenoxybenzamine Hydrochl), 2 CAP PO BID Propranolol (Inderal), 80 MG PO HS Varenicline (Chantix), 1 TAB PO BID Review of Systems Constitutional: No fever, No chills, No sweats Eyes: No worsening of vision ENT: No hearing loss, No unusual epistaxis, No nasal symptoms Respiratory: No cough, No wheezing Cardiovascular: No chest pain, No orthopnea, No PND Abdomen: + pain (at surgical site), No vomiting Musculoskeletal: No joint pain Genitourinary - Female: No dysuria, No urinary frequency, No urinary urgency Neurologic: No memory loss, No paralysis, No weakness Psychiatric: No depression symptoms Endocrine: No fatigue Hematologic / Lymphatic: No abnormal bleeding/bruising Integumentary: No rash Allergic / Immunologic: No environmental allergies Physical Exam Vital Signs Date Time Temp Pulse Resp B/P (MAP) Pulse Ox O2 Delivery O2 Flow Rate FiO2 03/22/17 10:00 72 26 107/66 (80) 93 Nasal Cannula 4.0 03/22/17 08:00 36.7 88 16 114/84 (94) 90 Nasal Cannula 4.0 03/22/17 08:00 Nasal Cannula 4.0 03/22/17 06:00 74 23 118/77 (91) 92 Nasal Cannula 2.0 03/22/17 04:00 91 Nasal Cannula 2.0 03/22/17 04:00 36.9 87 16 119/87 (98) 91 Nasal Cannula 2.0 03/22/17 02:00 81 15 109/74 (86) 91 Nasal Cannula 2.0 03/22/17 00:01 36.7 79 15 120/67 (84) 90 Nasal Cannula 2.0 03/21/17 23:59 93 Nasal Cannula 2.0 03/21/17 22:01 81 20 111/72 (85) 94 Nasal Cannula 2.0 03/21/17 21:06 81 16 114/71 (85) 95 Nasal Cannula 2.0 03/21/17 21:01 79 15 82/67 (72) 94 Nasal Cannula 2.0 03/21/17 20:01 36.9 82 15 118/68 (85) 94 Nasal Cannula 2.0 03/21/17 20:00 Nasal Cannula 2.0 03/21/17 19:02 94 20 136/71 (92) 92 Nasal Cannula 2.0 03/21/17 18:01 83 14 100/55 (70) 92 Nasal Cannula 2.0 03/21/17 17:01 89 18 133/71 (91) 92 Nasal Cannula 2.0 03/21/17 16:01 36.6 83 15 138/74 (95) 92 Nasal Cannula 2.0 03/21/17 16:00 Nasal Cannula 2.0 03/21/17 15:01 81 13 110/79 (89) 95 Nasal Cannula 4.0 03/21/17 14:31 78 14 102/68 (79) 94 Nasal Cannula 4.0 03/21/17 14:16 78 15 92/69 (77) 94 Nasal Cannula 4.0 03/21/17 14:15 80 12 91/74 (80) 94 Nasal Cannula 4.0 03/21/17 14:01 74 15 89/73 (78) 94 Nasal Cannula 4.0 03/21/17 14:00 76 14 87/67 (74) 94 Nasal Cannula 4.0 03/21/17 13:01 78 21 125/76 (103) 93 145/81 03/21/17 13:00 79 19 (100) 93 138/78 03/21/17 12:46 103/68 (89) 03/21/17 12:15 73 16 115/73 (89) 94 Nasal Cannula 4 120/55 (77) 03/21/17 12:05 76 16 110/75 (85) 94 Nasal Cannula 4 127/59 (81) 03/21/17 11:50 70 16 107/76 (89) 95 Nasal Cannula 4 129/66 (87) 03/21/17 11:35 36.4 72 16 112/77 (89) 94 Nasal Cannula 4 131/69 (90) 03/21/17 11:25 76 14 119/70 (80) 94 Nasal Cannula 4 128/71 (91) 03/21/17 11:15 79 14 120/72 (79) 94 Nasal Cannula 4 119/63 (83) 03/21/17 11:05 77 14 122/79 (103) 99 Mask 10 03/21/17 10:55 70 12 125/75 (91) 97 Mask 10 126/64 (86) General Appearance: WD/WN, no apparent distress Head: normocephalic Eyes: normal inspection ENT: normal ENT inspection, pharynx normal Neck: supple, no JVD Respiratory/Chest: chest non-tender, lungs clear, normal breath sounds Cardiovascular: regular rate, rhythm, no edema, no gallop Abdomen/GI: normal bowel sounds, + pertinent finding (Surgical wound at R lower abd are clean - there is tenderness and distention at the site consistent with her recent surgery) Back: normal inspection, no CVA tenderness, no muscle spasm, normal range of motion Extremities/Musculoskelatal: normal inspection, no calf tenderness, normal capillary refill Neurologic/Psych: managing consultant clinical professor II-XII nml as tested, no motor/sensory deficits, alert, oriented x 3 Skin: normal color, warm/dry, no rash Diagnostics Laboratory Results Results Past 24 Hours Test 03/21/17 11:06 03/21/17 13:07 03/21/17 16:26 03/21/17 19:41 Range/Units White Blood Count 15.17 4.8-10.8 K/uL Red Blood Count 4.01 4.2-5.4 M/uL Hemoglobin 9.8 12.0-16.0 g/dL Hematocrit 31.8 37-47 % Mean Corpuscular Volume 79.3 80-100 fL Mean Corpuscular Hemoglobin 24.4 25-34 pg Mean Corpuscular Hemoglobin Concent 30.8 32-36 g/dl RDW Standard Deviation 45.8 36.4-46.3 fL RDW Coefficient of Variation 15.7 11.5-14.5 % Platelet Count 306 130-400 K/uL Mean Platelet Volume 9.2 7.4-10.4 fL Sodium Level 136 136-145 mmol/L Potassium Level 4.3 3.5-5.1 mmol/L Chloride Level 107 98-107 mmol/L Carbon Dioxide Level 25 21-32 mmol/L Anion Gap 4.0 3-11 mmol/L Blood Urea Nitrogen 9 7-18 mg/dl Creatinine 0.84 0.60-1.20 mg/dl Est Creatinine Clear Calc Drug Dose 106.1 ml/min Estimated GFR () 95.9 Estimated GFR (Non- 82.8 BUN/Creatinine Ratio 11.0 10-20 Random Glucose 116 70-99 mg/dl Calcium Level 7.8 8.5-10.1 mg/dl Prothrombin Time 10.6 9.0-12.0 SECONDS Prothromb Time International Ratio 1.0 0.9-1.1 Activated Partial Thromboplast Time 26.8 21.0-31.0 SECONDS Partial Thromboplastin Ratio 1.0 Bedside Glucose 141 164 70-90 mg/dl Test 03/22/17 05:48 Range/Units White Blood Count 15.00 4.8-10.8 K/uL Red Blood Count 3.77 4.2-5.4 M/uL Hemoglobin 9.2 12.0-16.0 g/dL Hematocrit 30.3 37-47 % Mean Corpuscular Volume 80.4 80-100 fL Mean Corpuscular Hemoglobin 24.4 25-34 pg Mean Corpuscular Hemoglobin Concent 30.4 32-36 g/dl Platelet Count 326 130-400 K/uL Mean Platelet Volume 9.1 7.4-10.4 fL Neutrophils (%) (Auto) 74.8 % Lymphocytes (%) (Auto) 16.4 % Monocytes (%) (Auto) 8.3 % Eosinophils (%) (Auto) 0.1 % Basophils (%) (Auto) 0.1 % Neutrophils # (Auto) 11.22 1.4-6.5 K/uL Lymphocytes # (Auto) 2.46 1.2-3.4 K/uL Monocytes # (Auto) 1.25 0.11-0.59 K/uL Eosinophils # (Auto) 0.01 0-0.5 K/uL Basophils # (Auto) 0.02 0-0.2 K/uL RDW Standard Deviation 45.9 36.4-46.3 fL RDW Coefficient of Variation 15.7 11.5-14.5 % Immature Granulocyte % (Auto) 0.3 % Immature Granulocyte # (Auto) 0.04 0.00-0.02 K/uL Sodium Level 135 136-145 mmol/L Potassium Level 3.8 3.5-5.1 mmol/L Chloride Level 103 98-107 mmol/L Carbon Dioxide Level 26 21-32 mmol/L Anion Gap 6.0 3-11 mmol/L Blood Urea Nitrogen 11 7-18 mg/dl Creatinine 0.93 0.60-1.20 mg/dl Est Creatinine Clear Calc Drug Dose 95.8 ml/min Estimated GFR () 84.8 Estimated GFR (Non- 73.2 BUN/Creatinine Ratio 12.1 10-20 Random Glucose 98 70-99 mg/dl Calcium Level 8.1 8.5-10.1 mg/dl Impression Assessment and Plan 46 y/o F Hx Pheochromocytoma diagnosed 12/06, secondary HTN, LVH - presented for R adrenalectomy 03/21. Surgery reported uncomplicated - pt was appropriately B blocked prior. An episode of transient hypotension was reported the night following surgery which resolved with IVF - she has otherwise been stable. She denies CP, palpitations, SOB, N/V, fevers or uncontrolled pain at the surgical site. In the post-op period, this pt should be monitored on telemetry. She will likely requiring tapering of her antihypertensive and B-eddy. She should remain on IVF for volume support. Adequate pain control has been provided and she is otherwise asymptomatic. It would not now be clear if she will require antihypertensives going forward - this should eventually become apparent. She has leukocytosis which is likely reactive and had received tahmina-o Cefazolin regardless. The medical service will follow daily pending DC. Please consider the above a consult total time for this consult including review of labs, meds, imaging - discussion with pt - review of surgical records and history - 36 min Level of Care Med/Surg Advanced Directives Existing Living Will: No Existing Power of Knife Edger: No VTE Prophylaxis VTE Risk Assessment Done? Y/N: Yes Risk Level: Moderate
[2017-03-22] MEDS: LACTATED RINGER'S 1000ML 1,000 ML IV SCH ×3 (13:02→21:37)
--- NOTE | 2017-03-22 15:22 | Cardiology Follow-Up ---
Subjective Date of Service: Mar 22, 2017. Pt evaluation today including: conversation w/ patient, physical exam, chart review, lab review History of Present Illness This afternoon the patient has some abdominal discomfort is slightly worse than yesterday. She has been tolerating some liquids but has not been fed regular diet. She denies any significant breathing trouble. No symptoms of chest discomfort. Social History Smoking Status: Current Every Day Smoker History of Alcohol Use: No Review of Systems Respiratory: No shortness of breath Cardiac: No chest pain Patient is currently drowsy and somewhat sedated. Complete review of systems was unobtainable. Objective Vital Signs Past 12 Hours Date Time Temp Pulse Resp B/P (MAP) Pulse Ox O2 Delivery O2 Flow Rate FiO2 03/22/17 12:00 36.7 69 18 113/65 (81) 90 Nasal Cannula 4.0 03/22/17 12:00 90 Nasal Cannula 4.0 03/22/17 10:00 72 26 107/66 (80) 93 Nasal Cannula 4.0 03/22/17 08:00 36.7 88 16 114/84 (94) 90 Nasal Cannula 4.0 03/22/17 08:00 Nasal Cannula 4.0 03/22/17 06:00 74 23 118/77 (91) 92 Nasal Cannula 2.0 03/22/17 04:00 91 Nasal Cannula 2.0 03/22/17 04:00 36.9 87 16 119/87 (98) 91 Nasal Cannula 2.0 Last Recorded Weight-Kilograms: 96.700 Physical Exam She is alert and oriented x3. Mood affect appear normal. She answered all questions appropriately. HEENT: Sclerae are anicteric. Pupils are equal and reactive to light and accommodation. Extraocular movements were intact. Neuro: Cranial nerves intact Abdomen appears distended. Data Laboratory Results: Last 24 Hours Test 03/21/17 16:26 03/21/17 19:41 03/22/17 05:48 Bedside Glucose 141 mg/dl 164 mg/dl White Blood Count 15.00 K/uL Red Blood Count 3.77 M/uL Hemoglobin 9.2 g/dL Hematocrit 30.3 % Mean Corpuscular Volume 80.4 fL Mean Corpuscular Hemoglobin 24.4 pg Mean Corpuscular Hemoglobin Concent 30.4 g/dl Platelet Count 326 K/uL Mean Platelet Volume 9.1 fL Neutrophils (%) (Auto) 74.8 % Lymphocytes (%) (Auto) 16.4 % Monocytes (%) (Auto) 8.3 % Eosinophils (%) (Auto) 0.1 % Basophils (%) (Auto) 0.1 % Neutrophils # (Auto) 11.22 K/uL Lymphocytes # (Auto) 2.46 K/uL Monocytes # (Auto) 1.25 K/uL Eosinophils # (Auto) 0.01 K/uL Basophils # (Auto) 0.02 K/uL RDW Standard Deviation 45.9 fL RDW Coefficient of Variation 15.7 % Immature Granulocyte % (Auto) 0.3 % Immature Granulocyte # (Auto) 0.04 K/uL Sodium Level 135 mmol/L Potassium Level 3.8 mmol/L Chloride Level 103 mmol/L Carbon Dioxide Level 26 mmol/L Anion Gap 6.0 mmol/L Blood Urea Nitrogen 11 mg/dl Creatinine 0.93 mg/dl Est Creatinine Clear Calc Drug Dose 95.8 ml/min Estimated GFR () 84.8 Estimated GFR (Non- 73.2 BUN/Creatinine Ratio 12.1 Random Glucose 98 mg/dl Calcium Level 8.1 mg/dl Assessment and Plan 1. Hypertension: Her blood pressures have been quite good subsequent to her resection. RPR B reasonable this point to discontinue her amlodipine altogether. Would also suggest reducing her phenoxybenzamine dose to 10 milligrams twice daily and hold for blood pressures less than 110 systolic. We will continue to monitor blood pressures in the postoperative course and adjust her therapy as needed. I think the risk of significant hypertension in the postoperative period goes down every day. 2. Left ventricular hypertrophy: Hopefully she will have some aggression as her blood pressure improves. Maintaining her on a beta-eddy over time may have some additional benefit. 3. Diastolic dysfunction: Will continue with hydration and beta-blockade
[2017-03-22] MEDS ORDERED: PHENOXYBENZAMINE PO SCH ×3 (21:00)
[2017-03-22] MEDS: VARENICLINE (CHANTIX) 1 MG TAB PO SCH (21:35)
[2017-03-22] MEDS: PROPRANOLOL HCL 80 MG TAB PO SCH (21:36)
[2017-03-23] MEDS: ONDANSETRON INJ 2 MG/ML 2 ML VIAL IV PRN (01:06)
[2017-03-23] MEDS: ACETAMINOPHEN 500 MG TAB PO SCH ×4 (02:00→19:43)
[2017-03-23] MEDS: KETOROLAC TROMETHAMINE 30 MG/ML VIAL IV PRN ×3 (02:09→18:05)
[2017-03-23 03:47] VITALS: BP 86/53; PULSE 71; TEMP 36.2; O2SAT 92
[2017-03-23] MEDS: LACTATED RINGER'S 1000ML 1,000 ML IV SCH ×2 (04:58→11:48)
[2017-03-23 06:40] LABS: BASO % 0.2 %; BASO ABS # 0.02 K/uL (0-0.2); EOS % 3.2 %; HEMATOCRIT 28.6 % (37-47); IG% 0.2 %; LYMPH % 20.6 %; MEAN CORPUSCULAR HEMOGLOBIN 24.4 pg (25-34); MEAN CORPUSCULAR HGB CONC 30.1 g/dl (32-36); MEAN PLATELET VOLUME 8.9 fL (7.4-10.4); MONO % 7.6 %; NEUT % 68.2 %; PLATELET COUNT 280 K/uL (130-400); RED BLOOD COUNT 3.53 M/uL (4.2-5.4); WHITE BLOOD COUNT 9.72 K/uL (4.8-10.8)
[2017-03-23 07:10] LABS: COMPLETE YES
[2017-03-23 07:12] LABS: BUN/CREATININE RATIO 15.3 (10-20); CALCIUM 8.1 mg/dl (8.5-10.1); CREATININE 0.91 mg/dl (0.60-1.20); POTASSIUM 3.6 mmol/L (3.5-5.1)
[2017-03-23 07:15] VITALS: BP 117/74; PULSE 80; TEMP 36.8; O2SAT 96
[2017-03-23] MEDS: HEPARIN SOD 5000 UNIT/0.5 ML CARP SQ SCH ×2 (07:25→19:43)
[2017-03-23] MEDS: CHECK SCOPOLAMINE PATCH PLACEMENT SCH ×3 (07:27→21:41)
[2017-03-23] MEDS: OXYCODONE/ACETAMINOPHEN 7.5-325 TAB PO PRN ×2 (08:37→18:04)
[2017-03-23] MEDS: VARENICLINE (CHANTIX) 1 MG TAB PO SCH ×2 (08:38→21:41)
[2017-03-23] MEDS: DOCUSATE SODIUM 100 MG CAP PO SCH ×2 (08:38→21:41)
[2017-03-23] MEDS ORDERED: PHENOXYBENZAMINE PO PRN (09:00)
--- NOTE | 2017-03-23 09:08 | Cardiology Follow-Up ---
Cardiology Follow-Up Date of Service Mar 23, 2017. Cardiology Follow-Up SUBJECTIVE: 46-year-old woman status post pheochromocytoma resection ( postoperative day 2) whose blood pressure has markedly improved. Other than some abdominal swelling and tenderness, she had no complaints. She denied any chest pain, palpitations, dyspnea, or lightheadedness. PHYSICAL EXAMINATION: No distress. Vitals: Afebrile. Systolic blood pressure ranging from 86 mm Hg to 114 mm Hg. Diastolic blood pressure ranging from 64 mm Hg to 94 mm Hg. Pulse ranging from 69-88 ppm. Normal respiratory rate. Skin: No unusual lesions or ecchymosis. HEENT: Unremarkable. Neck: Jugular venous pulse at the clavicle at 90, no carotid bruits. Lungs: Clear and equal breath sounds bilaterally. No wheezing or crackles. Cardiac: Regular rhythm with normal S1 and S 2. No murmur or gallop. No obvious S4. Abdomen: postoperative. Extremities: Nontender without edema. Intact peripheral pulses. Neurologic: Normal affect, nonfocal DATA: Hemoglobin 8.6 with normal white count and platelet count. Sodium 132 with otherwise normal electrolytes, BUN 14, creatinine 0.91, glucose 96. Calcium 8.1. Rhythm is sinus on monitor. IMPRESSION: 1. Status post pheochromocytoma resection. 2. Labile BP (hypertensive preop, normotensive to mildly hypotensive postop). 3. Severe LVH with diastolic dysfunction. DISCUSSION: Patient is doing well postoperative day 2 after a pheochromocytoma resection. Given absence of any blood pressure spikes and the presence of mild relative hypotension, I believe we can discontinue the phenoxybenzamine (last dose given was over 24 hours ago). Her amlodipine was also appropriately discontinued. Given mild overnight hypotension, with normal heart rate, would reduce propranolol dose from 80 mg q.h.s. to 40 mg q.h.s.. Recommend using long- acting preparation (Inderal LA). Patient is clinically and hemodynamically stable for discharge from a cardiology standpoint. She should have follow-up with Dr. Ewing to re- evaluate her LVH and diastolic dysfunction for regression now that her hypertension has been managed through pheochromocytoma resection.
[2017-03-23 11:42] VITALS: BP 105/65; PULSE 72; TEMP 37.2; O2SAT 95
--- NOTE | 2017-03-23 11:54 | Progress Note ---
Progress Note Date of Service Mar 23, 2017. Progress Note Postop day #2 from adrenalectomy Patient is afebrile vital signs are stable She still is a little bit sore in the abdomen but otherwise feels fairly well Is been ambulating in the [place] She is passing flatus Physical exam Wounds are clean and dry some slight erythema on the midline wound Extremities without calf pain or tenderness Abdomen positive bowel sounds appropriate incisional tenderness Labs Hematocrit 28 Creatinine normal Sodium slightly down Assessment Postop day 2 from a pheochromocytoma resection Patient is improving slowly Her antihypertensives are being adjusted by cardiology Will increase her diet She'll continue to ambulate in the [place]
[2017-03-23] MEDS: D5W AND NSS 1,000 ML IV SCH (12:21)
[2017-03-23] MEDS: HYDROmorphone INJ 1 MG/ML SYR IV PRN ×2 (12:29→21:44)
--- NOTE | 2017-03-23 12:58 | DIAGNOSTIC IMAGING REPORT ---
CHEST ONE VIEW PORTABLE HISTORY: 46 years-old Female Requiring O2, unable to wean hypoxia COMPARISON: Chest radiographs 03/04/2017 TECHNIQUE: Portable AP view of the chest FINDINGS: Cardiac silhouette is upper limits of normal, likely accentuated by technique. Lungs are mildly hypoinflated with bronchovascular crowding. No pneumothorax. There are subsegmental hazy bibasilar opacities. Linear subsegmental opacity of the lateral right mid lung suggests pleural thickening or trace fluid within the minor fissure. No large pleural effusion. There is mild blunting of the costophrenic angles, likely from atelectasis. Bones appear grossly intact. Linear subdiaphragmatic lucency on the right is noted IMPRESSION: 1. Hypoinflated lungs with subsegmental bibasilar opacities suggesting atelectasis. 2. Small linear subdiaphragmatic lucency on the right is likely artifactual. If there is concern for pneumoperitoneum, consider acute abdominal series radiographs. The above report was generated using voice recognition software. It may contain grammatical, syntax or spelling errors. Electronically signed by: Josiah Pemberton M.D. 03/23/2017 12:57 PM Dictated Date/Time: 03/23/2017 12:53 PM
[2017-03-23 15:41] VITALS: BP 117/79; PULSE 81; TEMP 37.2; O2SAT 95
--- NOTE | 2017-03-23 16:40 | Progress Note ---
Subjective Date of Service: Mar 23, 2017. Subjective Pt evaluation today including: conversation w/ patient, conversation w/ family , physical exam, chart review, lab review, review of studies, review of inpatient medication list Review of Systems Constitutional: No see HPI, No fever, No chills, No sweats, No weight loss, No weakness, No fatigue, No problem reported Eyes: No see HPI, No worsening of vision, No eye pain, No redness, No discharge , No diplopia, No problem reported ENT: No see HPI, No hearing loss, No unusual epistaxis, No nasal symptoms, No sore throat, No tinnitus, No dental problems, No trouble swallowing, No problem reported Respiratory: + shortness of breath, No see HPI, No cough, No sputum, No wheezing, No dyspnea on exertion, No dyspnea at rest, No hemoptysis, No problem reported Cardiac: No see HPI, No chest pain, No orthopnea, No PND, No edema, No claudication, No palpitations, No problem reported Abdomen: No see HPI, No pain, No nausea, No vomiting, No diarrhea, No constipation, No GI bleeding, No problem reported Musculoskeletal: No see HPI, No joint pain, No muscle pain, No swelling, No calf pain, No problem reported Female : No see HPI, No dysuria, No urinary frequency, No hematuria, No incontinence, No abnormal vaginal bleeding, No vaginal discharge, No problem reported Neurologic: No see HPI, No memory loss, No paralysis, No weakness, No numbness/ tingling, No vertigo, No balance problems, No problem reported Psychiatric: No see HPI, No depression symptoms, No anhedonism, No anxiety, No insomnia, No substance abuse, No problem reported Heme: No see HPI, No abnormal bleeding/bruising, No clotting problems, No swollen lymph nodes, No night sweats, No problem reported Endo: No see HPI, No fatigue, No excessive thirst, No excessive urination, No problem reported Skin: No see HPI, No rash, No itch, No new/changing skin lesions, No color change, No bleeding, No problem reported Medications Current Inpatient Medications Medications (Trade) Dose Ordered Sig/[facility] Route Start Time Stop Time Status Last Admin Dose Admin Miscellaneous (Remove Transderm-Scop Patch) 1 ea Q72H N/A 03/24/17 06:00 03/24/17 06:01 Miscellaneous Information (Check Scopolamine Patch Placement) 1 ea QS N/A 03/21/17 16:00 03/24/17 05:59 03/23/17 16:21 1 EA Acetaminophen (Tylenol Tab) 500 mg Q6H PO 03/21/17 14:00 04/20/17 13:59 03/22/17 21:35 500 MG Docusate Sodium (coLACE CAP) 100 mg BID PO 03/21/17 21:00 04/20/17 20:59 03/23/17 08:38 100 MG Heparin Sodium (Porcine) (Heparin Sq 5000 Unit/0.5ml) 5,000 unit Q12H SQ 03/21/17 19:00 04/20/17 18:59 03/23/17 07:25 5,000 UNIT Hydromorphone HCl (Dilaudid Inj) 1 mg Q2H PRN IV 03/21/17 10:45 04/04/17 10:44 03/23/17 12:29 1 MG Ondansetron HCl (Zofran Inj) 4 mg Q6H PRN IV 03/21/17 10:45 04/20/17 10:44 03/23/17 01:06 4 MG Oxycodone/ Acetaminophen (Percocet 7.5-325MG Tab) Hold Tylenol if given Q4H PRN PO 03/21/17 10:45 04/04/17 10:44 03/23/17 08:37 2 TAB Ketorolac Tromethamine (Toradol Inj) 30 mg Q6H PRN IV 03/22/17 08:00 03/27/17 07:59 03/23/17 08:39 30 MG Varenicline (Chantix) 1 mg BID PO 03/22/17 21:00 04/21/17 20:59 03/23/17 08:38 1 MG Phenoxybenzamine HCl (Phenoxybenzamine Hydrochl) 10 mg BID PRN PO 03/23/17 09:00 04/21/17 20:59 Propranolol HCl (Inderal La Cap) 60 mg QPM PO 03/23/17 21:00 04/22/17 20:59 Dextrose/Sodium Chloride 1,000 ml @ 75 mls/hr [id number] IV 03/23/17 12:15 04/22/17 12:14 03/23/17 12:21 75 MLS/HR Objective Vital Signs Date Time Temp Pulse Resp B/P (MAP) Pulse Ox O2 Delivery O2 Flow Rate FiO2 03/23/17 16:00 Nasal Cannula 4.0 03/23/17 15:41 37.2 81 18 117/79 (92) 95 Nasal Cannula 4.0 Humidified Oxygen 03/23/17 12:00 Nasal Cannula 4.0 03/23/17 11:42 37.2 72 18 105/65 (78) 95 Nasal Cannula 4.0 Humidified Oxygen 03/23/17 08:00 Nasal Cannula 4.0 03/23/17 07:15 36.8 80 18 117/74 (88) 96 Nasal Cannula 4.0 03/23/17 04:02 Nasal Cannula 4.0 03/23/17 03:47 36.2 71 19 86/53 (64) 92 Room Air 03/23/17 00:00 Nasal Cannula 4.0 03/22/17 23:44 37.0 82 18 109/75 (86) 92 Nasal Cannula 4.0 03/22/17 21:33 102/70 (81) 03/22/17 20:01 Nasal Cannula 4.0 03/22/17 19:30 36.8 68 18 102/66 (78) 91 Nasal Cannula 4.0 Physical Exam General Appearance: WD/WN, + mild distress Eyes: normal inspection, EOMI ENT: normal ENT inspection, hearing grossly normal Neck: supple Respiratory/Chest: chest non-tender, + decreased breath sounds, + crackles Cardiovascular: regular rate, rhythm, no edema, no gallop, no JVD, no murmur Abdomen: normal bowel sounds, non tender, soft, no organomegaly, no pulsatile mass Extremities: normal range of motion, non-tender, normal inspection, no pedal edema, no calf tenderness 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, no motor/sensory deficits, alert, normal mood/affect, oriented x 3 Skin: normal color, warm/dry, no rash Laboratory Results Last 24 Hours Test 03/23/17 06:24 03/23/17 10:07 White Blood Count 9.72 K/uL Red Blood Count 3.53 M/uL Hemoglobin 8.6 g/dL Hematocrit 28.6 % Mean Corpuscular Volume 81.0 fL Mean Corpuscular Hemoglobin 24.4 pg Mean Corpuscular Hemoglobin Concent 30.1 g/dl Platelet Count 280 K/uL Mean Platelet Volume 8.9 fL Neutrophils (%) (Auto) 68.2 % Lymphocytes (%) (Auto) 20.6 % Monocytes (%) (Auto) 7.6 % Eosinophils (%) (Auto) 3.2 % Basophils (%) (Auto) 0.2 % Neutrophils # (Auto) 6.63 K/uL Lymphocytes # (Auto) 2.00 K/uL Monocytes # (Auto) 0.74 K/uL Eosinophils # (Auto) 0.31 K/uL Basophils # (Auto) 0.02 K/uL RDW Standard Deviation 46.7 fL RDW Coefficient of Variation 15.8 % Immature Granulocyte % (Auto) 0.2 % Immature Granulocyte # (Auto) 0.02 K/uL Red Blood Cell Morphology Unremarkable Sodium Level 132 mmol/L Potassium Level 3.6 mmol/L Chloride Level 100 mmol/L Carbon Dioxide Level 28 mmol/L Anion Gap 4.0 mmol/L Blood Urea Nitrogen 14 mg/dl Creatinine 0.91 mg/dl Est Creatinine Clear Calc Drug Dose 101.0 ml/min Estimated GFR () 87.1 Estimated GFR (Non- 75.1 BUN/Creatinine Ratio 15.3 Random Glucose 96 mg/dl Calcium Level 8.1 mg/dl Random Cortisol 8.19 mcg/dl Assessment and Plan 46 years old female recently diagnosed with pheochromocytoma accompanied by hypertension and palpitation. Came to the hospital for elective right adrenalectomy. Procedure went uneventful March 21. Had an episode of hypotension postsurgery Assessment Pheochromocytoma status post adrenalectomy 03/21 HTN currently has Postsurgical hypotension, possible relative adrenal insufficiency Shortness of breath Hypoxic respiratory failure possibly secondary to atelectasis Plan: Continue postsurgical care Postoperative day #2 Check cortisol level If blood pressure dropped again will start empiric hydrocortisone until cortisol level comes back Continue supportive care continue DVT prophylaxis Continued [facility] stay due to: other (Critical management postoperatively)
[2017-03-23 19:24] VITALS: BP 103/63; PULSE 77; TEMP 37.2; O2SAT 94
[2017-03-23] MEDS: PROPRANOLOL HCL 60 MG LA CAP PO SCH (21:41)
[2017-03-24] VITALS (8 sets, daily range): BP systolic 102–144; BP diastolic 65–90; PULSE 68–87; TEMP 36.2–37.1; O2SAT 92–97
[2017-03-24] MEDS: ACETAMINOPHEN 500 MG TAB PO SCH ×5 (02:00→23:24)
[2017-03-24] MEDS: OXYCODONE/ACETAMINOPHEN 7.5-325 TAB PO PRN ×3 (02:08→19:31)
[2017-03-24] MEDS: D5W AND NSS 1,000 ML IV SCH (05:55)
[2017-03-24 06:16] LABS: BASO % 0.2 %; BASO ABS # 0.02 K/uL (0-0.2); EOS % 4.6 %; HEMATOCRIT 28.8 % (37-47); IG% 0.1 %; LYMPH % 23.3 %; LYMPH ABS # 1.92 K/uL (1.2-3.4); MEAN CELL VOLUME 81.1 fL (80-100); MEAN CORPUSCULAR HEMOGLOBIN 24.2 pg (25-34); MEAN CORPUSCULAR HGB CONC 29.9 g/dl (32-36); MEAN PLATELET VOLUME 8.8 fL (7.4-10.4); MONO % 8.1 %; NEUT % 63.7 %; PLATELET COUNT 283 K/uL (130-400); RED BLOOD COUNT 3.55 M/uL (4.2-5.4); WHITE BLOOD COUNT 8.24 K/uL (4.8-10.8)
[2017-03-24 06:37] LABS: COMPLETE YES; HYPOCHROMIA PRESENT
[2017-03-24 06:47] LABS: BUN/CREATININE RATIO 13.3 (10-20); CALCIUM 7.9 mg/dl (8.5-10.1); CREATININE 0.74 mg/dl (0.60-1.20); POTASSIUM 3.6 mmol/L (3.5-5.1)
[2017-03-24 06:53] LABS: ALB/GLOB RATIO 0.9 (0.9-2); PHOSPHORUS 3.7 mg/dl (2.5-4.9)
[2017-03-24] MEDS: HEPARIN SOD 5000 UNIT/0.5 ML CARP SQ SCH ×2 (07:41→19:30)
[2017-03-24] MEDS: KETOROLAC TROMETHAMINE 30 MG/ML VIAL IV PRN (07:48)
[2017-03-24] MEDS: VARENICLINE (CHANTIX) 1 MG TAB PO SCH ×2 (07:49→20:39)
[2017-03-24] MEDS: DOCUSATE SODIUM 100 MG CAP PO SCH ×2 (07:49→20:40)
--- NOTE | 2017-03-24 10:47 | Progress Note ---
Progress Note Date of Service Mar 24, 2017. Progress Note Postop day 3 from adrenalectomy for pheochromocytoma Afebrile vital signs are stable Complains of some incisional tenderness Voiding okay Tolerating her diet Abdomen has some bruising Tender over one incision Extremities without calf pain or tenderness Assessment Post adrenalectomy Doing well DC IV fluids Continue antihypertensive medications per cardiology
--- NOTE | 2017-03-24 11:43 | Cardiology Follow-Up ---
Cardiology Follow-Up Date of Service Mar 24, 2017. Cardiology Follow-Up SUBJECTIVE: 46-year-old woman status post pheochromocytoma resection ( postoperative day 3) whose blood pressure has completely normalized postoperatively. She does note some hematuria today, she has no other complaints. She denies any chest pain, palpitations, dyspnea, or lightheadedness. PHYSICAL EXAMINATION: No distress. Vitals: Afebrile. Systolic blood pressure ranging from 102-117 mm Hg. Diastolic blood pressure normal. Pulse ranging from 69-81 bpm. Normal respiratory rate. Skin: No unusual lesions or ecchymosis. HEENT: Unremarkable. Neck: Jugular venous pulse at the clavicle at 90, no carotid bruits. Lungs: Clear and equal breath sounds bilaterally. No wheezing or crackles. Cardiac: Regular rhythm with normal S1 and S 2. No murmur or gallop. No S4. Abdomen: postoperative. Extremities: Nontender without edema. Intact peripheral pulses. Neurologic: Normal affect, nonfocal DATA: Hemoglobin stable at 8.6 with normal white count and platelet count. Normal electrolytes, BUN 10, creatinine 0.74. Rhythm is sinus on monitor. IMPRESSION: 1. Status post pheochromocytoma resection. 2. Labile BP (hypertensive preop, normotensive to mildly hypotensive postop). 3. Severe LVH with diastolic dysfunction. DISCUSSION: Patient is doing well postoperative day 3 after a pheochromocytoma resection. Given absence of any blood pressure spikes and the presence of mild relative hypotension yesterday, phenoxybenzamine was changed to p.r.n. (last dose given was over 48 hours ago), amlodipine was discontinued, and propranolol was reduced from 80 mg q.h.s. to 60 mg q.h.s (long-acting preparation). Patient is clinically and hemodynamically stable from a cardiology standpoint. She should have follow-up with Dr. Ewing to re-evaluate her LVH and diastolic dysfunction for regression now that her hypertension has been managed through pheochromocytoma resection.
[2017-03-24] MEDS: HYDROmorphone INJ 1 MG/ML SYR IV PRN (14:11)
--- NOTE | 2017-03-24 16:41 | Progress Note ---
Subjective Date of Service: Mar 24, 2017. Subjective Pt evaluation today including: conversation w/ patient, conversation w/ family , physical exam, chart review, lab review, review of inpatient medication list Review of Systems Constitutional: + weakness, No see HPI, No fever, No chills, No sweats, No weight loss, No fatigue, No problem reported Eyes: No see HPI, No worsening of vision, No eye pain, No redness, No discharge , No diplopia, No problem reported ENT: No see HPI, No hearing loss, No unusual epistaxis, No nasal symptoms, No sore throat, No tinnitus, No dental problems, No trouble swallowing, No problem reported Respiratory: No see HPI, No cough, No sputum, No wheezing, No shortness of breath, No dyspnea on exertion, No dyspnea at rest, No hemoptysis, No problem reported Cardiac: No see HPI, No chest pain, No orthopnea, No PND, No edema, No claudication, No palpitations, No problem reported Breast: No see HPI, No breast lump, No change in shape, No nipple discharge, No breast pain, No problem reported Abdomen: + pain, No see HPI, No nausea, No vomiting, No diarrhea, No constipation, No GI bleeding, No problem reported Musculoskeletal: No see HPI, No joint pain, No muscle pain, No swelling, No calf pain, No problem reported Female : No see HPI, No dysuria, No urinary frequency, No hematuria, No incontinence, No abnormal vaginal bleeding, No vaginal discharge, No problem reported Neurologic: No see HPI, No memory loss, No paralysis, No weakness, No numbness/ tingling, No vertigo, No balance problems, No problem reported Psychiatric: No see HPI, No depression symptoms, No anhedonism, No anxiety, No insomnia, No substance abuse, No problem reported Heme: No see HPI, No abnormal bleeding/bruising, No clotting problems, No swollen lymph nodes, No night sweats, No problem reported Endo: No see HPI, No fatigue, No excessive thirst, No excessive urination, No problem reported Skin: No see HPI, No rash, No itch, No new/changing skin lesions, No color change, No bleeding, No problem reported Medications Current Inpatient Medications Medications (Trade) Dose Ordered Sig/[facility] Route Start Time Stop Time Status Last Admin Dose Admin Acetaminophen (Tylenol Tab) 500 mg Q6H PO 03/21/17 14:00 04/20/17 13:59 03/22/17 21:35 500 MG Docusate Sodium (coLACE CAP) 100 mg BID PO 03/21/17 21:00 04/20/17 20:59 03/24/17 07:49 100 MG Heparin Sodium (Porcine) (Heparin Sq 5000 Unit/0.5ml) 5,000 unit Q12H SQ 03/21/17 19:00 04/20/17 18:59 03/24/17 07:41 5,000 UNIT Hydromorphone HCl (Dilaudid Inj) 1 mg Q2H PRN IV 03/21/17 10:45 04/04/17 10:44 03/24/17 14:11 1 MG Ondansetron HCl (Zofran Inj) 4 mg Q6H PRN IV 03/21/17 10:45 04/20/17 10:44 03/23/17 01:06 4 MG Oxycodone/ Acetaminophen (Percocet 7.5-325MG Tab) Hold Tylenol if given Q4H PRN PO 03/21/17 10:45 04/04/17 10:44 03/24/17 07:48 2 TAB Ketorolac Tromethamine (Toradol Inj) 30 mg Q6H PRN IV 03/22/17 08:00 03/27/17 07:59 03/24/17 07:48 30 MG Varenicline (Chantix) 1 mg BID PO 03/22/17 21:00 04/21/17 20:59 03/24/17 07:49 1 MG Phenoxybenzamine HCl (Phenoxybenzamine Hydrochl) 10 mg BID PRN PO 03/23/17 09:00 04/21/17 20:59 Propranolol HCl (Inderal La Cap) 60 mg QPM PO 03/23/17 21:00 04/22/17 20:59 03/23/17 21:41 60 MG Objective Vital Signs Date Time Temp Pulse Resp B/P (MAP) Pulse Ox O2 Delivery O2 Flow Rate FiO2 03/24/17 16:21 Nasal Cannula 3.0 03/24/17 15:31 36.9 77 18 132/82 (99) 92 Nasal Cannula 4.0 Humidified Oxygen 03/24/17 12:00 Nasal Cannula 3.0 03/24/17 11:14 36.9 69 18 117/66 (83) 96 Nasal Cannula 3.0 Humidified Oxygen 03/24/17 08:32 36.9 68 18 116/75 (89) 96 Nasal Cannula 3.0 Humidified Oxygen 03/24/17 08:00 Nasal Cannula 3.0 03/24/17 04:22 96 Nasal Cannula 3.0 03/24/17 04:04 36.2 73 19 102/65 (77) 96 03/24/17 04:02 Nasal Cannula 4.0 03/24/17 00:20 36.8 74 18 107/68 (81) 96 Nasal Cannula 4.0 03/24/17 00:00 Nasal Cannula 4.0 03/23/17 20:00 Nasal Cannula 4.0 03/23/17 19:24 37.2 77 18 103/63 (76) 94 Nasal Cannula 3.5 Humidified Oxygen Physical Exam General Appearance: WD/WN, no apparent distress Eyes: normal inspection, EOMI ENT: normal ENT inspection, hearing grossly normal Neck: supple Respiratory/Chest: chest non-tender, lungs clear, normal breath sounds, no respiratory distress, no accessory muscle use Cardiovascular: regular rate, rhythm, no edema, no gallop, no JVD, no murmur Abdomen: no organomegaly, no pulsatile mass, + distended, + tenderness Extremities: normal range of motion, non-tender, normal inspection, no pedal edema 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, no motor/sensory deficits, alert, normal mood/affect, oriented x 3 Skin: normal color, warm/dry, no rash Laboratory Results Last 24 Hours Test 03/24/17 06:02 White Blood Count 8.24 K/uL Red Blood Count 3.55 M/uL Hemoglobin 8.6 g/dL Hematocrit 28.8 % Mean Corpuscular Volume 81.1 fL Mean Corpuscular Hemoglobin 24.2 pg Mean Corpuscular Hemoglobin Concent 29.9 g/dl Platelet Count 283 K/uL Mean Platelet Volume 8.8 fL Neutrophils (%) (Auto) 63.7 % Lymphocytes (%) (Auto) 23.3 % Monocytes (%) (Auto) 8.1 % Eosinophils (%) (Auto) 4.6 % Basophils (%) (Auto) 0.2 % Neutrophils # (Auto) 5.24 K/uL Lymphocytes # (Auto) 1.92 K/uL Monocytes # (Auto) 0.67 K/uL Eosinophils # (Auto) 0.38 K/uL Basophils # (Auto) 0.02 K/uL RDW Standard Deviation 46.8 fL RDW Coefficient of Variation 15.7 % Immature Granulocyte % (Auto) 0.1 % Immature Granulocyte # (Auto) 0.01 K/uL Hypochromasia PRESENT Sodium Level 137 mmol/L Potassium Level 3.6 mmol/L Chloride Level 104 mmol/L Carbon Dioxide Level 30 mmol/L Anion Gap 3.0 mmol/L Blood Urea Nitrogen 10 mg/dl Creatinine 0.74 mg/dl Est Creatinine Clear Calc Drug Dose 127.2 ml/min Estimated GFR () 111.8 Estimated GFR (Non- 96.5 BUN/Creatinine Ratio 13.3 Random Glucose 108 mg/dl Calcium Level 7.9 mg/dl Phosphorus Level 3.7 mg/dl Magnesium Level 2.0 mg/dl Total Bilirubin 0.3 mg/dl Aspartate Amino Transf (AST/SGOT) 18 U/L Alanine Aminotransferase (ALT/SGPT) 25 U/L Alkaline Phosphatase 81 U/L Total Protein 6.0 gm/dl Albumin 2.8 gm/dl Globulin 3.2 gm/dl Albumin/Globulin Ratio 0.9 Assessment and Plan 46 years old female recently diagnosed with pheochromocytoma accompanied by hypertension and palpitation. Came to the hospital for elective right adrenalectomy. Procedure went uneventful March 21. Had an episode of hypotension postsurgery Assessment Pheochromocytoma status post adrenalectomy 03/21 HTN currently has Postsurgical hypotension, possible relative adrenal insufficiency Shortness of breath Hypoxic respiratory failure possibly secondary to atelectasis Plan: Continue postsurgical care Postoperative day # 3 cortisol level is 8.19 blood pressure has been stable Continue supportive care continue DVT prophylaxis Continued [facility] stay due to: other (Critical management postoperatively)
[2017-03-24] MEDS: PROPRANOLOL HCL 60 MG LA CAP PO SCH (20:40)
[2017-03-25 03:21] VITALS: BP 143/92; PULSE 83; TEMP 37.1; O2SAT 93
[2017-03-25] MEDS: OXYCODONE/ACETAMINOPHEN 7.5-325 TAB PO PRN ×2 (03:24→12:34)
[2017-03-25 06:12] LABS: BASO % 0.2 %; BASO ABS # 0.02 K/uL (0-0.2); COMPLETE YES; EOS % 5.9 %; HEMATOCRIT 29.9 % (37-47); IG% 0.2 %; LYMPH % 21.5 %; LYMPH ABS # 1.86 K/uL (1.2-3.4); MEAN CELL VOLUME 80.4 fL (80-100); MEAN CORPUSCULAR HEMOGLOBIN 24.2 pg (25-34); MEAN CORPUSCULAR HGB CONC 30.1 g/dl (32-36); MEAN PLATELET VOLUME 9.8 fL (7.4-10.4); MONO % 9.1 %; NEUT % 63.1 %; PLATELET COUNT 319 K/uL (130-400); RED BLOOD COUNT 3.72 M/uL (4.2-5.4); WHITE BLOOD COUNT 8.67 K/uL (4.8-10.8)
[2017-03-25 06:43] LABS: BUN/CREATININE RATIO 8.5 (10-20); CALCIUM 8.2 mg/dl (8.5-10.1); CREATININE 0.63 mg/dl (0.60-1.20); MAGNESIUM 1.9 mg/dl (1.8-2.4); POTASSIUM 3.4 mmol/L (3.5-5.1)
[2017-03-25 06:45] LABS: ALB/GLOB RATIO 0.8 (0.9-2)
[2017-03-25 07:04] VITALS: BP 138/88; PULSE 78; TEMP 37; O2SAT 94
[2017-03-25] MEDS ORDERED: OXYC7.5T65 PO (08:25)
[2017-03-25] MEDS ORDERED: DOCU-94 PO (08:25)
--- NOTE | 2017-03-25 08:27 | Discharge Instructions ---
Discharge Instructions Date of Service Mar 25, 2017. Admission Reason for Admission: Pheochromocytoma Discharge Discharge Diagnosis / Problem: Pheochromocytoma Discharge Goals Goal(s): Decrease discomfort, Improve function Activity Recommendations Activity Limitations: resume your previous activity Lifting Limitations: no more than 25 pounds, gradually increase as tolerated Exercise/Sports Limitations: gradually increase as tolerated Shower/Bathe: no limitations Driving or Machine Use: no limitations . Instructions / Follow-Up Instructions / Follow-Up May have pain or discomfort occasionally. Slowly increase diet. Continue stool softners as needed especially if needing narcotic pain medications. Follow up as ordered. Wound care as instructed. Call if any fevers or chills or other problems. Continue deep breathing and walk 6-8 short trips a day. Current Hospital Diet Patient's current hospital diet: Regular Diet Discharge Diet Recommended Diet: Regular Diet Procedures Procedures Performed: Robot Assisted Right Laparoscopic Adrenalectomy Pending Studies Studies pending at discharge: no Laboratory Results Hemoglobin A1c Test 02/13/17 10:58 Range/Units Estimated Average Glucose 108 mg/dl Hemoglobin A1c 5.4 4.5-5.6 % Lipid Panel Test 02/13/17 10:58 Range/Units Triglycerides Level 291 H 0-150 mg/dl Cholesterol Level 269 H 0-200 mg/dl HDL Cholesterol 62 mg/dl Cholesterol/HDL Ratio 4.3 LDL Cholesterol, Calculated 149 mg/dl Medical Emergencies . Who to Call and When: Medical Emergencies: If at any time you feel your situation is an emergency, please call 911 immediately. . Non-Emergent Contact Non-Emergency issues call your: Primary Care Provider, Urologist Call Non-Emergent contact if: you have a fever, temperature is above 101, temperature is above 101.5, your pain is not controlled, your pain is worsening , your pain is unusual for you, your pain is concerning you, wound has increased drainage, wound has increased redness, wound has increased pain, you have any medication questions . . "Provider Documentation" section prepared by Ramirez Rodriguez,. . VTE Core Measure Inpt VTE Proph given/why not?: Unfractionated heparin SQ, T.E.D. Stockings, SCD 's
[2017-03-25] MEDS: VARENICLINE (CHANTIX) 1 MG TAB PO SCH (08:34)
[2017-03-25] MEDS: ACETAMINOPHEN 500 MG TAB PO SCH (08:34)
[2017-03-25] MEDS: DOCUSATE SODIUM 100 MG CAP PO SCH (08:34)
[2017-03-25] MEDS: HEPARIN SOD 5000 UNIT/0.5 ML CARP SQ SCH (08:38)
[2017-03-25 08:45] VITALS: O2SAT 94
[2017-03-25] MEDS ORDERED: POTASSIUM CHLORIDE 20 MEQ TABCR PO ONE (09:00)
--- NOTE | 2017-03-25 09:32 | CARDIOLOGY PROGRESS NOTE ---
DATE: 03/25/2017 TIME OF DICTATION TIME: 8:59 a.m. SUBJECTIVE: She is hoping to go home. She denies chest pain, shortness of breath, syncope, near syncope or palpitations. She denies any flushing. She has been ambulating in the hallway and feels well doing so from a cardiovascular standpoint. She continues to have abdominal pain at the surgical site, which she states is improving on a daily basis. OBJECTIVE: VITAL SIGNS: Temperature 37 degrees, heart rate 78 beats per minute, respiration rate 18, blood pressure 138/88 mmHg. Her blood pressure has been mostly normotensive for the past 48 hours with only 2 episodes of slight hypertension. Oxygen saturation 94% on room air. I's and O's, positive 848 mL. Weight 107.5 kg. GENERAL: No acute distress. She is alert. NECK: No JVD. CARDIAC: No ventricular heave. Regular. Normal S1, S2. No murmurs, rubs or gallops. LUNGS: Clear to auscultation bilaterally without wheezes, rales or rhonchi. ABDOMEN: Soft, nondistended. There is tenderness at the surgical site. No discharge. EXTREMITIES: No cyanosis or pitting edema. PSYCHIATRIC: Affect appears appropriate. MEDICATIONS: Include potassium chloride 40 mEq x1 now, propranolol 60 mg q.p.m., heparin 5000 units subcu q. 12 hours. TELEMETRY: Personally reviewed. Sinus rhythm. There was an episode of SVT within the past 24 hours, last evening, approximately 11 beats in duration. She denies symptoms. LABORATORY DATA: White blood cell count is 8.67; hemoglobin 9, up from 8.6; platelets 319. Sodium 138, potassium 3.4, BUN 5, creatinine 0.63, albumin 2.8. Pathology of the adrenal gland is currently pending. ASSESSMENT AND PLAN: 1. Pheochromocytoma, status post resection: As per surgical team, in regard to postoperative care, she denies any symptoms of pheochromocytoma currently. Phenoxybenzamine has been discontinued and changed to p.r.n.; however, she has not been requiring any. 2. Hypertension: Blood pressure adequately controlled. Would continue propranolol for now. Long-term changes can be done as an outpatient depending on her blood pressure at that time when she recovers from surgery. 3. Left ventricular hypertension: Hopefully, this will improve with improvement of her blood pressure over time. Once her blood pressure is well controlled chronically, a repeat echo can be done as an outpatient and this will be arranged as she is followed as an outpatient. 4. Supraventricular tachycardia: She had 1 episode in the past 24 hours but appears to have had other episodes over the past weekend. The frequency appears to be decreasing. She is asymptomatic. Continue propranolol. Hopefully, this continues to improve and resolve with recovery from surgery and pheochromocytoma. 5. Disposition: From a cardiac standpoint, she can be followed as an outpatient at this point. Recommend cardiology followup in the next few weeks and this will be arranged for her.
--- NOTE | 2017-03-25 11:53 | Discharge Summary ---
Discharge Summary Date of Service Mar 25, 2017. Discharge Summary Admission Date: Mar 21, 2017 at 06:30 Discharge Date: Mar 25, 2017 Discharge Disposition: Home Principal Diagnosis: Pheochromocytoma and adrenal mass on right s/p RIght Radical Adrenalectomy Laparoscopic, Robot assisted. Secondary Diagnoses/Problems: Secondary HTN Cardiomyopathy Procedures: Right Radical Robot Assisted Laparoscopic Adrenalectomy Consultations: Cardiology - Cardiomyopathy and HTN Critical Care - Critical post operative observation and management Internal Medicine - Medical management and weaning HTN meds Pending Studies/Follow-Up: Follow up schedule. Awaiting pathology. See oracle database consultant orders for other followup Medication Reconciliation New Medications: Docusate Sodium (Colace) 100 Mg Cap 1 CAP PO BID PRN for Constipation for 30 Days, #60 CAP Oxycodone/Acetaminophen 7.5MG/325MG (Percocet 7.5MG/325MG) Tab 1 TAB PO Q4 PRN for Pain, #20 TAB Continued Medications: Amlodipine (Norvasc) 10 Mg Tab 10 MG PO QAM, TAB Phenoxybenzamine HCl (Phenoxybenzamine Hydrochl) 10 Mg Cap 2 CAP PO BID Propranolol (Inderal) 80 Mg Tab 80 MG PO HS, TAB Varenicline (Chantix) 1 Mg Tab 1 TAB PO BID for 30 Days, #60 TAB 2 Refills Admission Information HPI (per Admitting provider): 46 y/o F Hx Pheochromocytoma diagnosed 12/06, secondary HTN, LVH - presented for R adrenalectomy 03/21. Surgery reported uncomplicated - pt was appropriately B blocked prior. An episode of transient hypotension was reported the night following surgery which resolved with IVF - she has otherwise been stable. She denies CP, palpitations, SOB, N/V, fevers or uncontrolled pain at the surgical site. Physical Exam (per Admitting): General Appearance: WD/WN, no apparent distress Head: normocephalic Eyes: normal inspection ENT: normal ENT inspection, pharynx normal Neck: supple, no JVD Respiratory/Chest: chest non-tender, lungs clear, normal breath sounds Cardiovascular: regular rate, rhythm, no edema, no gallop Abdomen/GI: normal bowel sounds, + pertinent finding (Surgical wound at R lower abd are clean, dry, and intact. No erythema. Mild tenderness at midline incision. 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 Patient did well and was critically monitored due to pheochromocytoma. Patient did have a hypotensive episode but responded well to hydration. Patient was monitored in the ICU until POD1 and then transferred to telemetry. Consultants assissted with HTN control and medications and medical management. Izaguirre was removed and patient ambulated and utilized IS. Over POD2, 3, and 4 patient continued to improve. Pain was improved and controlled on medication. Patient tolerated diet and overall improved. On POD4 due to patients improving clinical picture, tolerance of diet and pain control, increased mobility, and plan for follow up she was deemed stable to be discharged home to the care of her family. Total time spent on discharge = 14m This includes examination of the patient, discharge planning, medication reconciliation, and communication with other providers. Discharge Instructions See Discharge sheet. Last 24 Hours Test 03/25/17 05:45 White Blood Count 8.67 K/uL Red Blood Count 3.72 M/uL Hemoglobin 9.0 g/dL Hematocrit 29.9 % Mean Corpuscular Volume 80.4 fL Mean Corpuscular Hemoglobin 24.2 pg Mean Corpuscular Hemoglobin Concent 30.1 g/dl Platelet Count 319 K/uL Mean Platelet Volume 9.8 fL Neutrophils (%) (Auto) 63.1 % Lymphocytes (%) (Auto) 21.5 % Monocytes (%) (Auto) 9.1 % Eosinophils (%) (Auto) 5.9 % Basophils (%) (Auto) 0.2 % Neutrophils # (Auto) 5.47 K/uL Lymphocytes # (Auto) 1.86 K/uL Monocytes # (Auto) 0.79 K/uL Eosinophils # (Auto) 0.51 K/uL Basophils # (Auto) 0.02 K/uL RDW Standard Deviation 45.6 fL RDW Coefficient of Variation 15.5 % Immature Granulocyte % (Auto) 0.2 % Immature Granulocyte # (Auto) 0.02 K/uL Sodium Level 138 mmol/L Potassium Level 3.4 mmol/L Chloride Level 104 mmol/L Carbon Dioxide Level 30 mmol/L Anion Gap 4.0 mmol/L Blood Urea Nitrogen 5 mg/dl Creatinine 0.63 mg/dl Est Creatinine Clear Calc Drug Dose 148.9 ml/min Estimated GFR () 123.8 Estimated GFR (Non- 106.8 BUN/Creatinine Ratio 8.5 Random Glucose 91 mg/dl Calcium Level 8.2 mg/dl Magnesium Level 1.9 mg/dl Total Bilirubin 0.3 mg/dl Aspartate Amino Transf (AST/SGOT) 14 U/L Alanine Aminotransferase (ALT/SGPT) 23 U/L Alkaline Phosphatase 93 U/L Total Protein 6.3 gm/dl Albumin 2.8 gm/dl Globulin 3.5 gm/dl Albumin/Globulin Ratio 0.8
[2017-03-25] MEDS ORDERED: [UNRECOGNIZED DRUG - CODE] PO (12:05)
[2017-03-25] MEDS ORDERED: INDSR/60 PO (12:06)
--- NOTE | 2017-03-25 12:09 | Progress Note ---
Subjective Date of Service: Mar 25, 2017. Subjective Pt evaluation today including: conversation w/ patient, conversation w/ family , physical exam, chart review, lab review, review of studies Pain: Controlled PO Intake: Tolerating Improved overall. AMbulationg. No issues. Deep breathing well with IS. Urinating well. Small bowel movements and flatus Review of Systems All Other Systems: Reviewed and Negative Objective Vital Signs Date Time Temp Pulse Resp B/P (MAP) Pulse Ox O2 Delivery O2 Flow Rate FiO2 03/25/17 08:45 94 Room Air 03/25/17 08:00 Room Air 03/25/17 07:04 37.0 78 18 138/88 (105) 94 Room Air 03/25/17 04:02 Nasal Cannula 3.0 03/25/17 03:21 37.1 83 17 143/92 (109) 93 Nasal Cannula 3.0 03/25/17 00:02 Nasal Cannula 3.0 03/24/17 23:47 37.1 80 20 124/90 (101) 95 Nasal Cannula 3.0 03/24/17 20:00 Nasal Cannula 3.0 03/24/17 19:07 36.9 87 18 144/83 (103) 97 Nasal Cannula 3.0 Humidified Oxygen 03/24/17 16:21 Nasal Cannula 3.0 03/24/17 15:31 36.9 77 18 132/82 (99) 92 Nasal Cannula 4.0 Humidified Oxygen Physical Exam General Appearance: WD/WN, no apparent distress Eyes: normal inspection ENT: normal ENT inspection Neck: supple, no adenopathy Respiratory/Chest: no respiratory distress, no accessory muscle use Cardiovascular: regular rate, rhythm Abdomen: + pertinent finding (Wound clean dry and intact. Mild tendernss. 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, no motor/sensory deficits Skin: normal color, warm/dry, no rash Laboratory Results Last 24 Hours Test 03/25/17 05:45 White Blood Count 8.67 K/uL Red Blood Count 3.72 M/uL Hemoglobin 9.0 g/dL Hematocrit 29.9 % Mean Corpuscular Volume 80.4 fL Mean Corpuscular Hemoglobin 24.2 pg Mean Corpuscular Hemoglobin Concent 30.1 g/dl Platelet Count 319 K/uL Mean Platelet Volume 9.8 fL Neutrophils (%) (Auto) 63.1 % Lymphocytes (%) (Auto) 21.5 % Monocytes (%) (Auto) 9.1 % Eosinophils (%) (Auto) 5.9 % Basophils (%) (Auto) 0.2 % Neutrophils # (Auto) 5.47 K/uL Lymphocytes # (Auto) 1.86 K/uL Monocytes # (Auto) 0.79 K/uL Eosinophils # (Auto) 0.51 K/uL Basophils # (Auto) 0.02 K/uL RDW Standard Deviation 45.6 fL RDW Coefficient of Variation 15.5 % Immature Granulocyte % (Auto) 0.2 % Immature Granulocyte # (Auto) 0.02 K/uL Sodium Level 138 mmol/L Potassium Level 3.4 mmol/L Chloride Level 104 mmol/L Carbon Dioxide Level 30 mmol/L Anion Gap 4.0 mmol/L Blood Urea Nitrogen 5 mg/dl Creatinine 0.63 mg/dl Est Creatinine Clear Calc Drug Dose 148.9 ml/min Estimated GFR () 123.8 Estimated GFR (Non- 106.8 BUN/Creatinine Ratio 8.5 Random Glucose 91 mg/dl Calcium Level 8.2 mg/dl Magnesium Level 1.9 mg/dl Total Bilirubin 0.3 mg/dl Aspartate Amino Transf (AST/SGOT) 14 U/L Alanine Aminotransferase (ALT/SGPT) 23 U/L Alkaline Phosphatase 93 U/L Total Protein 6.3 gm/dl Albumin 2.8 gm/dl Globulin 3.5 gm/dl Albumin/Globulin Ratio 0.8 Assessment and Plan 1. POD4 s/p Right Robot Asst Laparoscopic Adrenalectomy 2. Pheochromocytoma 3. LVH 4. Secondary HTN s/p adrenalectomy WIll plan to follow up as ordered. See discharge instructions. Continue to increase activity. Will discuss pathology at follow. Continued [facility] stay due to: other (Critical management postoperatively)
[2017-03-25] MEDS: ONDANSETRON INJ 2 MG/ML 2 ML VIAL IV PRN (12:33)
[2017-03-25 12:47] VITALS: BP 138/88; PULSE 78; TEMP 37; O2SAT 94
--- NOTE | 2017-03-25 14:42 | Hospitalist Progress Note ---
Hospitalist Progress Note Date of Service Mar 25, 2017. Subjective Pt evaluation today including: conversation w/ patient, conversation w/ family , physical exam, chart review, lab review, review of studies, review of inpatient medication list Patient seen and evaluated. No acute events overnight. Continue to have pain but reports this is improving. She has tolerated a diet without difficulty. Occ. gets nausea. No lightheadedness/dizziness. BP better controlled. Off supplemental O2 and reports no SOB. Encouraged deep breathing to prevent atelectasis/pneumonia. Constitutional: No fever, No chills Respiratory: No shortness of breath Cardiovascular: No chest pain Abdomen: + nausea, No pain, No vomiting, No diarrhea, No constipation Musculoskeletal: No swelling, No calf pain Female : No dysuria Heme: No abnormal bleeding/bruising Skin: No rash Medications Reported Home Medications Medications Dose Route/Sig Max Daily Dose Days Date Category Propranolol ER (Propranolol Hcl) 60 Mg Capcr 60 Mg PO QPM 30 03/25/17 Rx Phenoxybenzamine Hydrochl (Phenoxybenzamine HCl) 10 Mg Cap 10 Mg PO BID PRN 14 03/25/17 Rx Percocet 7.5MG/325MG (Oxycodone/Acetaminophen) Tab 1 Tab PO Q4 PRN 03/25/17 Rx Colace (Docusate Sodium) 100 Mg Cap 1 Cap PO BID PRN 30 03/25/17 Rx Chantix (Varenicline) 1 Mg Tab 1 Tab PO BID 30 03/04/17 Reported Objective Vital Signs Date Time Temp Pulse Resp B/P (MAP) Pulse Ox O2 Delivery O2 Flow Rate FiO2 03/25/17 12:47 37.0 78 18 94 Room Air 03/25/17 08:45 94 Room Air 03/25/17 08:00 Room Air 03/25/17 07:04 37.0 78 18 138/88 (105) 94 Room Air 03/25/17 04:02 Nasal Cannula 3.0 03/25/17 03:21 37.1 83 17 143/92 (109) 93 Nasal Cannula 3.0 03/25/17 00:02 Nasal Cannula 3.0 03/24/17 23:47 37.1 80 20 124/90 (101) 95 Nasal Cannula 3.0 03/24/17 20:00 Nasal Cannula 3.0 03/24/17 19:07 36.9 87 18 144/83 (103) 97 Nasal Cannula 3.0 Humidified Oxygen 03/24/17 16:21 Nasal Cannula 3.0 03/24/17 15:31 36.9 77 18 132/82 (99) 92 Nasal Cannula 4.0 Humidified Oxygen Physical Exam General Appearance: WD/WN, no apparent distress Eyes: sclerae normal ENT: hearing grossly normal Neck: supple, no JVD, trachea midline Respiratory/Chest: lungs clear, normal breath sounds, no respiratory distress, no accessory muscle use Cardiovascular: regular rate, rhythm, no gallop, no murmur Abdomen: normal bowel sounds Extremities: no pedal edema, no calf tenderness Neurologic/Psychiatric: alert, oriented x 3 Skin: normal color, warm/dry Laboratory Results Last 24 Hours Test 03/25/17 05:45 White Blood Count 8.67 K/uL Red Blood Count 3.72 M/uL Hemoglobin 9.0 g/dL Hematocrit 29.9 % Mean Corpuscular Volume 80.4 fL Mean Corpuscular Hemoglobin 24.2 pg Mean Corpuscular Hemoglobin Concent 30.1 g/dl Platelet Count 319 K/uL Mean Platelet Volume 9.8 fL Neutrophils (%) (Auto) 63.1 % Lymphocytes (%) (Auto) 21.5 % Monocytes (%) (Auto) 9.1 % Eosinophils (%) (Auto) 5.9 % Basophils (%) (Auto) 0.2 % Neutrophils # (Auto) 5.47 K/uL Lymphocytes # (Auto) 1.86 K/uL Monocytes # (Auto) 0.79 K/uL Eosinophils # (Auto) 0.51 K/uL Basophils # (Auto) 0.02 K/uL RDW Standard Deviation 45.6 fL RDW Coefficient of Variation 15.5 % Immature Granulocyte % (Auto) 0.2 % Immature Granulocyte # (Auto) 0.02 K/uL Sodium Level 138 mmol/L Potassium Level 3.4 mmol/L Chloride Level 104 mmol/L Carbon Dioxide Level 30 mmol/L Anion Gap 4.0 mmol/L Blood Urea Nitrogen 5 mg/dl Creatinine 0.63 mg/dl Est Creatinine Clear Calc Drug Dose 148.9 ml/min Estimated GFR () 123.8 Estimated GFR (Non- 106.8 BUN/Creatinine Ratio 8.5 Random Glucose 91 mg/dl Calcium Level 8.2 mg/dl Magnesium Level 1.9 mg/dl Total Bilirubin 0.3 mg/dl Aspartate Amino Transf (AST/SGOT) 14 U/L Alanine Aminotransferase (ALT/SGPT) 23 U/L Alkaline Phosphatase 93 U/L Total Protein 6.3 gm/dl Albumin 2.8 gm/dl Globulin 3.5 gm/dl Albumin/Globulin Ratio 0.8 Assessment and Plan 46 years old female recently diagnosed with pheochromocytoma accompanied by hypertension and palpitation. Came to the hospital for elective right adrenalectomy. Procedure went uneventful March 21. Had an episode of hypotension postsurgery Pheochromocytoma S/P Adrenalectomy on 03/21: - Management per primary team Secondary HTN 2/2 Above: STABLE - Had post-surgical hypotension which may partially be from adrenal insufficiency - Recommended D/C Amlodipine and change Phenooxybenzamine BID PRN; Propranolol changed to long-acting 60 mg - Cardiology following - plan to follow as outpatient for further medication adjustments Acute Hypoxic Respiratory Failure 2/2 Atelectasis: RESOLVED - Saturating well on RA - encouraged incentive spirometry Disposition: - Medically suitable for D/C home with cardiology follow-up for BP management - Discussed with patient to continue to monitor her BP and to keep a log to present to Dr. Eiwng Discharge planning: home
== END 2017-03-25 13:05 | disposition home or self-care (01) | DRG 614 ==
LOC: C.ACU 05:03 → C.MSICU 06:30 → ENRESERV 12:08 → C.2E 03-22 12:26
PROVIDERS: ADMIT Urology; ATTEND Urology
PROC: 0GT34ZZ Resection of Right Adrenal Gland, Percutaneous Endoscopic Approach (ICD-10-PCS; principal; 2017-03-21 07:30)
DX: D35.01 Benign neoplasm of right adrenal gland (principal); J96.01 Acute respiratory failure with hypoxia; I42.9 Cardiomyopathy, unspecified; I47.1 Supraventricular tachycardia; J98.11 Atelectasis; I95.81 Postprocedural hypotension; N20.0 Calculus of kidney; I15.2 Hypertension secondary to endocrine disorders; F17.200 Nicotine dependence, unspecified, uncomplicated; I51.7 Cardiomegaly

== ENCOUNTER 2017-04-29 10:48 | Day surgery (SDC) | payer OTHER ==
[2017-04-16 08:02] VITALS: BMI 27.0
[~2017-04-29] VITALS: Ht 180.3 cm; Wt 88.6 kg
[~2017-04-29 10:48] MED LIST changes: -AMLO-114 PO; +CARV12.52 PO; +CEFAZOLIN 2000MG IV PUSH 10 ML IV SCH; +LACTATED RINGER'S 1000ML 1,000 ML IV SCH; -PROP80TA2 PO; +ROPI1TAB PO; +SCOPOLAMINE 1.5 MG TDSY TD SCH; -[UNRECOGNIZED DRUG - CODE] PO
[2017-04-29] MEDS ORDERED: ATROPINE SULFATE 0.1 MG/ML 5ML SYR IV PRN (11:00)
[2017-04-29] MEDS ORDERED: ONDANSETRON INJ 2 MG/ML 2 ML VIAL IV PRN (11:00)
[2017-04-29] MEDS ORDERED: CIPR1TAB11 PO (11:08)
[2017-04-29 11:14] VITALS: BP 144/83; PULSE 97; TEMP 36.6; O2SAT 98; Ht 180.3 cm; Wt 88.6 kg
[2017-04-29] MEDS ORDERED: PROPOFOL IV EMULSION 10 MG/ML 20 ML VIAL IV ONE (11:40)
[2017-04-29] MEDS ORDERED: FENTANYL CITRATE INJ 50 MCG/1 ML 2 ML VIAL ONE (11:40)
[2017-04-29] MEDS ORDERED: DEXAMETHASONE SOD INJ 4 MG/ML VIAL ONE (11:40)
[2017-04-29] MEDS ORDERED: LIDOCAINE HCL 2% 2 ML VIAL (20MG/ML) ONE (11:40)
[2017-04-29] MEDS ORDERED: ONDANSETRON INJ 2 MG/ML 2 ML VIAL ONE ×2 (11:40→12:27)
[2017-04-29] MEDS ORDERED: MIDAZOLAM HCL 1 MG/ML 2ML VIAL ONE (11:41)
[2017-04-29] MEDS ORDERED: CONRAY 30% 150ML BOTTLE ONE (12:00)
--- NOTE | 2017-04-29 12:02 | History & Physical Bridge Note ---
H&P Re-Evaluation Bridge Note: I have examined the patient, reviewed the History & Physical and in the interval since the performance of the History & Physical I have noted the following changes of clinical significance: No changes noted
[2017-04-29] MEDS ORDERED: PHEN-775 PO (12:08)
--- NOTE | 2017-04-29 12:09 | Discharge Instructions ---
Discharge Instructions Date of Service Apr 29, 2017. Admission Reason for Admission: STONE Discharge Discharge Diagnosis / Problem: Stone Discharge Goals Goal(s): Decrease discomfort, Improve function Activity Recommendations Activity Limitations: resume your previous activity Lifting Limitations: gradually increase as tolerated . Instructions / Follow-Up Instructions / Follow-Up May have blood in urine or pain when voiding. Call with any issues or fever. Current Hospital Diet Patient's current hospital diet: Discharge Diet Recommended Diet: Regular Diet Procedures Procedures Performed: Cysto and right ureteroscopy. Pending Studies Studies pending at discharge: no Laboratory Results Hemoglobin A1c Test 02/13/17 10:58 Range/Units Estimated Average Glucose 108 mg/dl Hemoglobin A1c 5.4 4.5-5.6 % Lipid Panel Test 02/13/17 10:58 Range/Units Triglycerides Level 291 H 0-150 mg/dl Cholesterol Level 269 H 0-200 mg/dl HDL Cholesterol 62 mg/dl Cholesterol/HDL Ratio 4.3 LDL Cholesterol, Calculated 149 mg/dl Medical Emergencies . Who to Call and When: Medical Emergencies: If at any time you feel your situation is an emergency, please call 911 immediately. . Non-Emergent Contact Non-Emergency issues call your: Primary Care Provider, Urologist Call Non-Emergent contact if: you have a fever, temperature is above 101, temperature is above 101.5, your pain is not controlled, your pain is worsening . . "Provider Documentation" section prepared by Ramirez Rodriguez,. . VTE Core Measure Inpt VTE Proph given/why not?: SCD's
[2017-04-29] MEDS ORDERED: OXYCODONE/ACETAMINOPHEN 7.5-325 TAB PO PRN (12:15)
[2017-04-29] MEDS ORDERED: KETOROLAC TROMETHAMINE 30 MG/ML VIAL ONE (12:26)
[2017-04-29] MEDS ORDERED: PHENYLEPHRINE 100MCG/ML 5ML SYR ONE (12:26)
[2017-04-29] MEDS ORDERED: EpHEDrine SULFATE 50MG/5ML SYR ONE (12:45)
--- NOTE | 2017-04-29 13:50 | DIAGNOSTIC IMAGING REPORT ---
RETROGRADE INCLUDES KUB CLINICAL HISTORY: RT LASER/LITHO AND STENT PLACEMENT COMPARISON STUDY: CT of the abdomen and pelvis December 14, 2016 and MRI of the abdomen January 16, 2017. Fluoroscopy time: 1 minute and 24 seconds. FINDINGS: 5 fluoroscopic images were submitted for interpretation. These images again demonstrate the calculus within the lower pole of the right kidney. These images demonstrate cannulation of the right ureter with placement of a right ureteral stent. Proximal aspect of stent is within renal pelvis and distal aspect is within the bladder. Final image shows decreased density of the right renal calculus which suggests interval lithotripsy. IMPRESSION: Fluoroscopic images from right retrograde exam with lithotripsy and ureteral stent insertion. Electronically signed by: Codey Peacock M.D. 04/29/2017 1:48 PM Dictated Date/Time: 04/29/2017 1:47 PM
--- NOTE | 2017-04-29 14:03 | [facility] Operative Report ---
Operative Report Operative Date Apr 29, 2017. Pre-Operative Diagnosis Stone Right Post-Operative Diagnosis Same Procedure(s) Performed Cystoscopy, Right Retrograde, Ureteroscopy, Stent, Laser lithotripsy. Surgeon Michael Estimated Blood Loss Minimal Findings Large right stone with mild hydro at UPJ. Drains 6 x 24 Anesthesia General Complication(s) None Disposition Recovery Room / PACU Indications Large right stone which is symptomatic and partially obstructing. Description of Procedure Patient was consented and brought back to the operating room. Patient was placed under anesthesia in the supine position. Patient was prepped and draped in the regular sterile fashion. A time out was completed. A 30degree Cystoscope was placed into the bladder and the entire bladder was examined. The UO's were identified. The right was cannulized with a catheter and a retrograde pyelogram was completed. A wire was then placed. A second safety wire was placed along with an ureteral access sheath. Into the shealth, A flexible ureteroscope was placed. It was taken into the pelvis. A stone was encountered and pulverized with the laser on dusting settings. The stone was very large and in the lower pole. Of note, the patient had a stenosed/strictured infindibulum with the stone entrapped. The stone adequately treated, the entire pelvis was examined. Due to large amount of sediment and stone fragments, larger fragment may not have been visualized. The wire was left and the scope slowly removed visualizing the entire ureter. No areas of concern or obstruction. With the wire in place, a 6 x [24] Double J stent was placed. It was confirmed with fluoroscopy. With the stent in place, the bladder was emptied. The scope was removed. The patient was cleaned, aroused from anesthesia, and transferred to the pacu in stable condition having tolerated the procedure well with no complications. I was present and participated in all aspects of the procedure. The patient will be monitored in the PACU until transferred. I attest to the content of the Intraoperative Record and any orders documented therein. Any exceptions are noted below.
[2017-04-29] MEDS ORDERED: ONDA4TAB65 PO (14:04)
[2017-04-29] MEDS: FENTANYL CITRATE INJ 50 MCG/1 ML 2 ML VIAL IV PRN ×6 (14:04→14:29)
[2017-04-29] MEDS ORDERED: OXYC7.5T65 PO (14:04)
[2017-04-29] MEDS ORDERED: CEPH500C PO (14:04)
--- NOTE | 2017-04-29 14:48 | Anesthesiology Progress Note ---
Anesthesia Post Op Note Date & Time Apr 29, 2017 at 14:48 Vital Signs Pain Intensity: 3 Vital Signs Past 12 Hours Date Time Temp Pulse Resp B/P (MAP) Pulse Ox O2 Delivery O2 Flow Rate FiO2 04/29/17 14:35 97 20 124/65 92 Room Air 04/29/17 14:25 90 17 122/76 93 Room Air 04/29/17 14:15 87 18 135/83 93 Room Air 04/29/17 14:05 82 15 139/84 100 Oxymask 10 04/29/17 13:55 86 18 140/87 100 Oxymask 10 04/29/17 13:46 36.0 81 19 123/78 100 Oxymask 10 04/29/17 11:14 36.6 97 20 144/83 (103) 98 Room Air Notes Mental Status: alert / awake / arousable, participated in evaluation Pt Amnestic to Procedure: Yes Nausea / Vomiting: adequately controlled Pain: adequately controlled Airway Patency, RR, SpO2: stable & adequate BP & HR: stable & adequate Hydration State: stable & adequate Anesthetic Complications: no major complications apparent
[2017-04-29 14:55] VITALS: BP 130/77; PULSE 86; TEMP 36.9; O2SAT 94
[2017-04-29 15:25] VITALS: BP 138/84; PULSE 96; O2SAT 94
[2017-04-29 16:00] VITALS: BP 146/78; PULSE 100; TEMP 36.6; O2SAT 93
[2017-04-29] MEDS ORDERED: CHECK SCOPOLAMINE PATCH PLACEMENT SCH (16:00)
== END 2017-04-29 16:03 | disposition home or self-care (01) ==
LOC: C.ACU 10:48
PROVIDERS: ATTEND Urology
DX: N20.0 Calculus of kidney (principal); E66.9 Obesity, unspecified; I10 Essential (primary) hypertension; D35.00 Benign neoplasm of unspecified adrenal gland; E27.9 Disorder of adrenal gland, unspecified; R61 Generalized hyperhidrosis; E78.5 Hyperlipidemia, unspecified; I15.2 Hypertension secondary to endocrine disorders; I51.7 Cardiomegaly; E04.9 Nontoxic goiter, unspecified; F17.200 Nicotine dependence, unspecified, uncomplicated; Z87.891 Personal history of nicotine dependence; Z87.442 Personal history of urinary calculi; Z82.49 Family history of ischemic heart disease and other diseases of the circulatory system

== ENCOUNTER → 2017-05-13 | Outpatient (CLI) | payer OTHER ==
[~2017-05-13] MED LIST changes: -CEFAZOLIN 2000MG IV PUSH 10 ML IV SCH; +CEPH500C PO; +CEPH500C2 PO; +CIPR1TAB11 PO; -LACTATED RINGER'S 1000ML 1,000 ML IV SCH; +OXYBUTYNIN PO; +OXYC7.5T65 PO; +PHEN-876 PO; -ROPI1TAB PO; -SCOPOLAMINE 1.5 MG TDSY TD SCH
== END | disposition home or self-care (01) ==
LOC: C.LABSPEC 17:15
PROVIDERS: ATTEND Urology
DX: N20.0 Calculus of kidney (principal)

== ENCOUNTER → 2017-05-13 | Outpatient (CLI) | payer OTHER ==
--- NOTE | 2017-05-13 14:31 | DIAGNOSTIC IMAGING REPORT ---
KUB CLINICAL HISTORY: Nephrolithiasis. COMPARISON STUDY: CT of the abdomen and pelvis December 14, 2016. FINDINGS: A right ureteral stent is in place. There has been apparent interval partial fragmentation of the calculus within the lower pole of the right kidney. In aggregate, the calculi measure 2.2 x 1.4 cm. There is at least one suspected distal right ureteral calculus/fragment that measures 4 mm. This is partially obscured by the overlying ureteral stent. IMPRESSION: 1. Partial interval fragmentation of the large right renal calculus since CT of December 14, 2016. 2. Right ureteral stent in place with suspected 4 mm distal right ureteral calculus/fragment which is partially obscured by the stent. Electronically signed by: Codey Peacock M.D. 05/13/2017 2:29 PM Dictated Date/Time: 05/13/2017 2:25 PM
== END | disposition home or self-care (01) ==
LOC: C.RAD 14:05
PROVIDERS: ATTEND Urology
DX: N20.0 Calculus of kidney (principal)

== ENCOUNTER 2017-05-20 07:53 | Day surgery (SDC) | payer OTHER ==
[2017-05-14 15:21] VITALS: BMI 27.0
[~2017-05-20] VITALS: Ht 180.3 cm; Wt 88.6 kg
[~2017-05-20 07:53] MED LIST changes: -CEPH500C PO; -CIPR1TAB11 PO; +CIPROFLOXACIN / D5W 400 MG IV SCH; +LACTATED RINGER'S 1000ML 1,000 ML IV SCH; -OXYC7.5T65 PO
--- NOTE | 2017-05-20 08:09 | History & Physical Bridge Note ---
H&P Re-Evaluation Bridge Note: I have examined the patient, reviewed the History & Physical and in the interval since the performance of the History & Physical I have noted the following changes of clinical significance: No changes noted Second look ureteroscopy and laser with stent exchange.
[2017-05-20] MEDS ORDERED: OXYCODONE/ACETAMINOPHEN 7.5-325 TAB PO PRN (08:15)
--- NOTE | 2017-05-20 08:16 | Discharge Instructions ---
Discharge Instructions Date of Service May 20, 2017. Admission Reason for Admission: Stones Discharge Discharge Diagnosis / Problem: Stone Discharge Goals Goal(s): Decrease discomfort, Improve function Activity Recommendations Activity Limitations: resume your previous activity Lifting Limitations: gradually increase as tolerated Exercise/Sports Limitations: gradually increase as tolerated Shower/Bathe: no limitations . Instructions / Follow-Up Instructions / Follow-Up May have blood in urine or pelvic discomfort. Call if any fevers or other issues. Current Hospital Diet Patient's current hospital diet: Discharge Diet Recommended Diet: Regular Diet Procedures Procedures Performed: Cystoscopy and R Ureteroscopy with laser. Pending Studies Studies pending at discharge: no Medical Emergencies . Who to Call and When: Medical Emergencies: If at any time you feel your situation is an emergency, please call 911 immediately. . Non-Emergent Contact Non-Emergency issues call your: Primary Care Provider, Urologist Call Non-Emergent contact if: you have a fever, temperature is above 101, temperature is above 101.5, your pain is not controlled, your pain is worsening . . "Provider Documentation" section prepared by Ramirez Rodriguez,. . VTE Core Measure Inpt VTE Proph given/why not?: SCD's
[2017-05-20 08:20] VITALS: BP 122/69; PULSE 89; TEMP 37; O2SAT 94; Ht 180.3 cm; Wt 88.6 kg
[2017-05-20] MEDS ORDERED: MIDAZOLAM HCL 1 MG/ML 2ML VIAL ONE (08:25)
[2017-05-20] MEDS ORDERED: FENTANYL CITRATE INJ 50 MCG/1 ML 2 ML VIAL ONE ×3 (08:25→10:50)
[2017-05-20] MEDS ORDERED: SCOPOLAMINE 1.5 MG TDSY TD ONE ×2 (08:46→09:00)
[2017-05-20] MEDS ORDERED: ATROPINE SULFATE 0.1 MG/ML 5ML SYR IV PRN (09:00)
[2017-05-20] MEDS ORDERED: LABETALOL HCL IV 5 MG/ML 20ML IV PRN (09:00)
[2017-05-20] MEDS ORDERED: KETOROLAC TROMETHAMINE 30 MG/ML VIAL IV. PRN (09:00)
[2017-05-20] MEDS ORDERED: ONDANSETRON INJ 2 MG/ML 2 ML VIAL IV PRN (09:00)
[2017-05-20] MEDS ORDERED: NURSING VERBAL MED ORDER ONE (09:00)
[2017-05-20] MEDS ORDERED: CONRAY 30% 150ML BOTTLE ONE (09:09)
[2017-05-20] MEDS ORDERED: OXYC7.5T65 PO (09:14)
[2017-05-20] MEDS ORDERED: ONDANSETRON INJ 2 MG/ML 2 ML VIAL ONE (09:38)
[2017-05-20] MEDS ORDERED: PROPOFOL IV EMULSION 10 MG/ML 20 ML VIAL IV ONE ×2 (09:38→09:48)
[2017-05-20] MEDS ORDERED: DEXAMETHASONE SOD INJ 4 MG/ML VIAL ONE (09:38)
[2017-05-20] MEDS ORDERED: LIDOCAINE HCL 2% 2 ML VIAL (20MG/ML) ONE (09:38)
[2017-05-20] MEDS ORDERED: PHENYLEPHRINE 100MCG/ML 5ML SYR ONE (09:51)
--- NOTE | 2017-05-20 11:48 | [facility] Operative Report ---
Operative Report Operative Date May 20, 2017. Pre-Operative Diagnosis Stone Post-Operative Diagnosis Cystoscopy, Right Ureteroscopy, Laser Litho, Stent exchange, Stone basket extraction. Retrograde Pyelogram. Procedure(s) Performed Same Surgeon Michael Launching Pad Mechanic Surgeon(s) None Estimated Blood Loss Minimal Findings Right stone burden treated with laser. Specimens Stone Drains 6x26 Double J on right Anesthesia General Complication(s) None Disposition Recovery Room / PACU Indications Large stone in right requiring multiple treatments. Description of Procedure Patient was consented and brought back to the operating room. Patient was placed under anesthesia in the supine position and moved to the dorsal lithotomy position. Patient was prepped and draped in the regular sterile fashion. A time out was completed. A 30degree Cystoscope was placed into the bladder and the entire bladder was examined. The UO's were identified. The right sided stent was grasped and partially removed. A wire was placed. A second wire was then placed along with a ureteral access sheath. The extra wire was removed and one remained as a safety wire. The flexible ureteroscope was placed into the sheath and taken into the ureter. The ureter was examined. The scope was taken to the pelvis. Stone fragments were identified. The laser was selected and the fragments were pulverized. Larger fragments were basketed. Due to the large stone burden multiple baskets were necessary to remove burden. The entire pelvis was examined. No further fragments remained. The scope was then slowly removed with the safety wire remaining. The entire ureter and pelvis were examined. No residual large fragments were discovered. A retrograde pyelogram was completed through the scope. With the wire in place , a 6 x [24] Double J stent was placed. It was confirmed with fluoroscopy. With the stent in place, the bladder was emptied. The scope was removed. The patient was cleaned, aroused from anesthesia, and transferred to the pacu in stable condition having tolerated the procedure well with no complications. I was present and participated in all aspects of the procedure. The patient will be monitored in the PACU until transferred. I attest to the content of the Intraoperative Record and any orders documented therein. Any exceptions are noted below.
[2017-05-20] MEDS: FENTANYL CITRATE INJ 50 MCG/1 ML 2 ML VIAL IV PRN ×4 (12:14→12:29)
[2017-05-20 12:45] VITALS: BP 124/64; PULSE 82; TEMP 36.6; O2SAT 94
--- NOTE | 2017-05-20 12:52 | Anesthesiology Progress Note ---
Anesthesia Post Op Note Date & Time May 20, 2017 at 12:51 Vital Signs Pain Intensity: 4 Vital Signs Past 12 Hours Date Time Temp Pulse Resp B/P (MAP) Pulse Ox O2 Delivery O2 Flow Rate FiO2 05/20/17 12:35 36.3 80 16 118/70 94 Nasal Cannula 3 05/20/17 12:25 82 16 132/84 94 Nasal Cannula 3 05/20/17 12:15 85 16 148/90 95 Oxymask 5 05/20/17 12:05 87 16 160/95 94 Oxymask 10 05/20/17 11:58 36.2 88 16 159/98 92 Oxymask 10 05/20/17 08:20 37 89 18 122/69 (86) 94 Room Air Notes Mental Status: alert / awake / arousable, participated in evaluation Pt Amnestic to Procedure: Yes Nausea / Vomiting: adequately controlled Pain: adequately controlled Airway Patency, RR, SpO2: stable & adequate BP & HR: stable & adequate Hydration State: stable & adequate Anesthetic Complications: no major complications apparent
[2017-05-20 13:15] VITALS: BP 137/71; PULSE 84; TEMP 36.4; O2SAT 94
--- NOTE | 2017-05-20 13:53 | DIAGNOSTIC IMAGING REPORT ---
RETROGRADE INCLUDES KUB CLINICAL HISTORY: 46 years-old Female presenting with RT CYSTO/LASER/STENT EXCHANGE. TECHNIQUE: 8 fluoroscopic spot image(s) obtained as part of an intraoperative procedure. COMPARISON: Plain radiograph from 05/13/2017. FINDINGS/IMPRESSION: Density over the lower pole of the right kidney correlates to the known calculus. A guidewire was introduced into the right ureter and right renal collecting system. A catheter was passed over a second guidewire into lower calyx of the right kidney. The right renal collecting system was subsequently opacified, which was moderately distended. A right ureteral calculus was placed. Please see surgical report for further details. Dose area product (mGy.cm^2): 7018.6. Fluoroscopy time: 96.3 seconds. Number of fluoroscopic spot images: 8. Electronically signed by: Nicola Casiano M.D. 05/20/2017 1:52 PM Dictated Date/Time: 05/20/2017 1:48 PM
== END 2017-05-20 13:45 | disposition home or self-care (01) ==
LOC: C.ACU 07:53
PROVIDERS: ATTEND Urology
DX: N20.0 Calculus of kidney (principal); N20.1 Calculus of ureter; R30.0 Dysuria; I10 Essential (primary) hypertension; E78.5 Hyperlipidemia, unspecified; Z90.89 Acquired absence of other organs; Z82.49 Family history of ischemic heart disease and other diseases of the circulatory system; Z83.3 Family history of diabetes mellitus; F17.200 Nicotine dependence, unspecified, uncomplicated

== ENCOUNTER → 2017-06-05 | Outpatient (CLI) | payer OTHER ==
[~2017-06-05] MED LIST changes: -CEPH500C2 PO; -CIPROFLOXACIN / D5W 400 MG IV SCH; -LACTATED RINGER'S 1000ML 1,000 ML IV SCH; +OXYC7.5T65 PO
--- NOTE | 2017-06-05 09:33 | DIAGNOSTIC IMAGING REPORT ---
KUB CLINICAL HISTORY: Nephrolithiasis. COMPARISON STUDY: KUB May 13, 2017. FINDINGS: Pelvic calcifications reflect phleboliths. A large fragmented calculus within the lower pole of the right kidney is noted. In aggregate, this measures 2.1 x 1.7 cm. Density of this calculus is diminished since exam of May 13, 2017. Right ureteral stent has been removed. 2 calcific densities project over the right sacral ala, the largest of which measures 9 x 3 mm. IMPRESSION: 1. Fragmented right lower pole calculus. Density of this fragment calculus/calculi has diminished since prior KUB. 2. Two calcific densities which project over the right sacral ala, measuring up to 9 x 3 mm. These may be artifactual. However, project over the mid right ureter and raise the possibility of ureteral calculi/fragments. Electronically signed by: Codey Peacock M.D. 06/05/2017 9:32 AM Dictated Date/Time: 06/05/2017 9:22 AM
== END ==
LOC: C.RAD 08:46
PROVIDERS: ATTEND Urology
DX: N20.0 Calculus of kidney (principal)

== ENCOUNTER → 2017-07-18 | Outpatient (CLI) | payer OTHER ==
[~2017-07-18] MED LIST changes: +CARV25TA2 PO; +PROP10TA7 PO
[2017-07-18 14:28] LABS: BASO % 0.5 %; BASO ABS # 0.04 K/uL (0-0.2); EOS ABS # 0.34 K/uL (0-0.5); HEMATOCRIT 34.1 % (37-47); HEMOGLOBIN 10.3 g/dL (12.0-16.0); IG# 0.01 K/uL (0.00-0.02); LYMPH % 43.7 %; LYMPH ABS # 3.69 K/uL (1.2-3.4); MEAN CELL VOLUME 75.1 fL (80-100); MEAN CORPUSCULAR HEMOGLOBIN 22.7 pg (25-34); MEAN CORPUSCULAR HGB CONC 30.2 g/dl (32-36); MEAN PLATELET VOLUME 9.8 fL (7.4-10.4); MONO % 7.8 %; MONO ABS # 0.66 K/uL (0.11-0.59); NEUT % 43.9 %; PLATELET COUNT 398 K/uL (130-400); RED CELL DISTRIBUTION WIDTH CV 16.2 % (11.5-14.5); RED CELL DISTRIBUTION WIDTH SD 44.5 fL (36.4-46.3); WHITE BLOOD COUNT 8.44 K/uL (4.8-10.8)
[2017-07-18 15:18] LABS: BLOOD UREA NITROGEN 7 mg/dl (7-18); CARBON DIOXIDE 26 mmol/L (21-32); CREATININE 0.83 mg/dl (0.60-1.20); POTASSIUM 3.1 mmol/L (3.5-5.1); SODIUM 139 mmol/L (136-145)
== END | disposition home or self-care (01) ==
LOC: C.LAB1850 12:39
PROVIDERS: ATTEND Urology
DX: N20.0 Calculus of kidney (principal)

== ENCOUNTER → 2017-07-18 | Outpatient (CLI) | payer OTHER ==
--- NOTE | 2017-07-18 07:49 | DIAGNOSTIC IMAGING REPORT ---
KUB CLINICAL HISTORY: N20.0 [id number] COMPARISON STUDY: I 2017 FINDINGS: There is no pathologic bowel dilatation. There are clustered calcifications project over the lower pole the right kidney measuring 16 mm in aggregate. Pelvic basin calcifications remain similar to the prior study and likely represent phleboliths. IMPRESSION: Fragmented lower pole right renal calculus, slightly smaller than the prior study. No ureteral calculi are visualized Electronically signed by: Dov Nicole M.D. 07/18/2017 7:48 AM Dictated Date/Time: 07/18/2017 7:46 AM
--- NOTE | 2017-07-18 08:03 | DIAGNOSTIC IMAGING REPORT ---
ULTRASOUND KIDNEYS AND BLADDER CLINICAL HISTORY: Nephrolithiasis. COMPARISON STUDY: Abdominal MRI dated 01/16/2017. KUB dated 07/18/2017. TECHNIQUE: Real-time, grayscale, and color flow sonography of the kidneys and bladder is performed. Images are reviewed in the transverse and longitudinal planes. FINDINGS: Kidneys: The kidneys are normal in size and echotexture. The right kidney measures 11.9 cm in length and the left kidney measures 13.5 cm in length. There is no hydronephrosis. A shadowing calculus or cluster of calculi in the right lower pole measures up to 2.1 cm. No shadowing calculi are seen in the left kidney. There is no sonographic evidence of contour deforming renal mass lesion. No perinephric fluid is identified. Bladder: The bladder is normal in appearance. Bilateral ureteral jets were seen. IMPRESSION: 1. The kidneys are normal in size and without hydronephrosis. 2. There is a large shadowing calculus versus cluster of calculi in the lower pole of the right kidney. 3. The bladder is normal as imaged. Electronically signed by: John Vale M.D. 07/18/2017 8:02 AM Dictated Date/Time: 07/18/2017 8:00 AM
== END | disposition home or self-care (01) ==
LOC: C.ULTR 06:44
PROVIDERS: ATTEND Urology
DX: N20.0 Calculus of kidney (principal)

== ENCOUNTER → 2017-08-02 | Day surgery (SDC) | payer OTHER ==
[2017-07-22 08:49] VITALS: Ht 181.6 cm; Wt 90.9 kg
[~2017-08-02] VITALS: Ht 181.6 cm; Wt 90.9 kg
[~2017-08-02] MED LIST changes: +ACETAMINOPHEN 325 MG TAB PO PRN; +ATROPINE SULFATE 0.1 MG/ML 5ML SYR IV PRN; -CARV12.52 PO; -CHN/1 PO; +CIPROFLOXACIN 400MG / D5W IV SCH; +DEXAMETHASONE SOD INJ 4 MG/ML VIAL ONE; +EpHEDrine SULFATE 50MG/5ML SYR ONE; +EpHEDrine SULFATE INJ 50 MG/ML AMP IV PRN; +FENTANYL CITRATE INJ 50 MCG/1 ML 2 ML VIAL ONE; +FLUMAZENIL 0.1 MG/1 ML 10 ML VIAL IV PRN; +HYDROmorphone INJ 2 MG/ML SYR/VIAL IV PRN; +LABETALOL HCL IV 5 MG/ML 20ML IV PRN; +LACTATED RINGER'S 1000ML 1,000 ML IV SCH; +LIDOCAINE HCL 2% 2 ML VIAL (20MG/ML) ONE; +MEPERIDINE HCL 25 MG/ML CARP IV PRN; +MIDAZOLAM HCL 1 MG/ML 2ML VIAL ONE; +NALOXONE HCL 0.4 MG/1 ML VIAL/CARP IV PRN; +ONDANSETRON INJ 2 MG/ML 2 ML VIAL IV PRN; +ONDANSETRON INJ 2 MG/ML 2 ML VIAL ONE; -OXYBUTYNIN PO; +OXYC-57 PO; -OXYC7.5T65 PO; +OXYCODONE/ACETAMINOPHEN 5-325 TAB PO PRN; -PHEN-876 PO; +PHENYLEPHRINE 100MCG/ML 5ML SYR IV PRN; +PHENYLEPHRINE HCL INJ 10 MG/ML VIAL ONE; +PROPOFOL IV EMULSION 10 MG/ML 20 ML VIAL IV ONE; +SCOPOLAMINE 1.5 MG TDSY TD ONE; +SODIUM CHLORIDE 0.9% 1000ML 1,000 ML IV SCH; +WATER, STERILE FOR INJ 10 ML VIAL ONE
--- NOTE | 2017-08-02 10:17 | Discharge Instructions-SurgCtr ---
Discharge Instructions Date of Service Aug 02, 2017. Visit Reason for Visit: Stones Discharge Discharge Diagnosis / Problem: stones Discharge Goals Goal(s): Decrease discomfort, Improve function, Increase independence, Improve disease control, Prevent Disease Progression Activity Recommendations Activity Limitations: resume your previous activity Lifting Limitations: none Exercise/Sports Limitations: none May Resume Sexual Activity: when tolerated Shower/Bathe: no limitations Driving or Machine Use: resume 1 day after discharge Anesthesia . Post Anesthesia Instructions: If you have had General Anesthesia or IV Sedation: * Do not drive today. * Resume driving when surgeon permits. * Do not make important decisions or sign legal documents today. * Call surgeon for: 1. Temperature elevations greater than 101 degrees F. 2. Uncontrollable pain. 3. Excessive bleeding. 4. Persistent nausea and vomiting. 5. Medication intolerance (nausea, vomiting or rash). * For nausea and vomiting use only clear liquids such as: tea, soda, bouillon until nausea subsides, then gradually increase diet as tolerated. * If you have any concerns or questions, call your surgeon's office. If physician is unavailable and it is an emergency, call 911 or go to the nearest emergency room. . Instructions / Follow-Up Instructions / Follow-Up Please keep your previously scheduled follow up appointment Diet Recommendations Home Diet: no limitations, resume previous diet Procedures Procedures Performed: Right Extracorporeal Shock Wave Lithotripsy Pending Studies Studies pending at discharge: no Medical Emergencies . Who to Call and When: Medical Emergencies: If at any time you feel your situation is an emergency, please call 911 immediately. . Non-Emergent Contact Non-Emergency issues call your: Urologist Call Non-Emergent contact if: you have a fever, temperature is above 101.5, your pain is not controlled, your pain is worsening, your pain is unusual for you . . "Provider Documentation" section prepared by Brian Campbell. . [place] Drug Monitoring Program Search Results: patient reviewed within database, no issues identified Drug Monitoring Findings: numerous prior rx s, but all appear appropriate
--- NOTE | 2017-08-02 10:19 | [facility] Operative Report ---
Operative Report Operative Date Aug 02, 2017. Pre-Operative Diagnosis Right Ureteral Stone Post-Operative Diagnosis same Procedure(s) Performed Right Extracorporeal Shock Wave Lithotripsy Surgeon Dr. Dina Plata [facility] Coordinator Surgeon(s) 0 Estimated Blood Loss 0 Findings Large right renal calculi Specimens none Drains None Anesthesia Type General Complication(s) none Disposition yes Recovery Room / PACU Indications Renal calculi Description of Procedure The patient was identified in the preoperative holding area, appropriate informed consent was reviewed and completed and the patient was transported to the operating suite. Upon arrival appropriate preoperative antibiotics were administered and general anesthesia induced. The patient was placed in supine position and the stone was localized under fluoroscopy. A total of 2500 shocks were delivered to the stone. There appeared to be good fragmentation of the stone. Details of this procedure can be found on the [facility] information sheet. At the conclusion of the case the patient was extubated and taken to the PACU in stable condition. There were no complications. I attest to the content of the Intraoperative Record and any orders documented therein. Any exceptions are noted below.
[2017-08-02] MEDS: FENTANYL CITRATE INJ 50 MCG/1 ML 2 ML VIAL IV PRN ×3 (10:28→10:41)
--- NOTE | 2017-08-02 10:39 | Anesthesia Progress Nt - [facility] ---
Anesthesia Post Op Note Date & Time Aug 02, 2017 at 10:39 Vital Signs Pain Intensity: 2 Vital Signs Past 12 Hours Date Time Temp Pulse Resp B/P (MAP) Pulse Ox O2 Delivery O2 Flow Rate FiO2 08/02/17 10:22 37 90 16 128/89 97 Diffusion Mask 6 08/02/17 08:09 36.8 80 16 149/84 (105) 94 Room Air Notes Mental Status: alert / awake / arousable, participated in evaluation Pt Amnestic to Procedure: Yes Nausea / Vomiting: adequately controlled Pain: adequately controlled Airway Patency, RR, SpO2: stable & adequate BP & HR: stable & adequate Hydration State: stable & adequate Anesthetic Complications: no major complications apparent
[2017-08-02 11:06] VITALS: TEMP 36.2
[2017-08-02 11:34] VITALS: BP 150/89; PULSE 95; O2SAT 94
== END | disposition home or self-care (01) ==
LOC: X.SURG 07:39
PROVIDERS: ATTEND Urology
DX: N20.1 Calculus of ureter (principal); I10 Essential (primary) hypertension; E78.5 Hyperlipidemia, unspecified; G25.81 Restless legs syndrome; F17.200 Nicotine dependence, unspecified, uncomplicated; Z91.041 Radiographic dye allergy status; Z87.442 Personal history of urinary calculi; Z82.49 Family history of ischemic heart disease and other diseases of the circulatory system; Z83.3 Family history of diabetes mellitus

== ENCOUNTER → 2017-08-14 | Outpatient (CLI) | payer OTHER ==
[~2017-08-14] MED LIST changes: -ACETAMINOPHEN 325 MG TAB PO PRN; -ATROPINE SULFATE 0.1 MG/ML 5ML SYR IV PRN; -CIPROFLOXACIN 400MG / D5W IV SCH; -DEXAMETHASONE SOD INJ 4 MG/ML VIAL ONE; -EpHEDrine SULFATE 50MG/5ML SYR ONE; -EpHEDrine SULFATE INJ 50 MG/ML AMP IV PRN; -FENTANYL CITRATE INJ 50 MCG/1 ML 2 ML VIAL ONE; -FLUMAZENIL 0.1 MG/1 ML 10 ML VIAL IV PRN; -HYDROmorphone INJ 2 MG/ML SYR/VIAL IV PRN; -LABETALOL HCL IV 5 MG/ML 20ML IV PRN; -LACTATED RINGER'S 1000ML 1,000 ML IV SCH; -LIDOCAINE HCL 2% 2 ML VIAL (20MG/ML) ONE; -MEPERIDINE HCL 25 MG/ML CARP IV PRN; -MIDAZOLAM HCL 1 MG/ML 2ML VIAL ONE; -NALOXONE HCL 0.4 MG/1 ML VIAL/CARP IV PRN; -ONDANSETRON INJ 2 MG/ML 2 ML VIAL IV PRN; -ONDANSETRON INJ 2 MG/ML 2 ML VIAL ONE; -OXYCODONE/ACETAMINOPHEN 5-325 TAB PO PRN; -PHENYLEPHRINE 100MCG/ML 5ML SYR IV PRN; -PHENYLEPHRINE HCL INJ 10 MG/ML VIAL ONE; -PROPOFOL IV EMULSION 10 MG/ML 20 ML VIAL IV ONE; -SCOPOLAMINE 1.5 MG TDSY TD ONE; -SODIUM CHLORIDE 0.9% 1000ML 1,000 ML IV SCH; -WATER, STERILE FOR INJ 10 ML VIAL ONE
--- NOTE | 2017-08-14 14:08 | DIAGNOSTIC IMAGING REPORT ---
KUB CLINICAL HISTORY: N20.0 [id number] COMPARISON STUDY: 08/02/2017 FINDINGS: There is no pathologic bowel dilatation. There are granular fragmented lower pole right renal calculi measuring 17 mm in]. Pelvic basin calcifications remain stable. IMPRESSION: Fragmented lower pole right renal calculus measuring 17 mm in maximal diameter. Electronically signed by: Dov Nicole M.D. 08/14/2017 2:07 PM Dictated Date/Time: 08/14/2017 2:06 PM
== END | disposition home or self-care (01) ==
LOC: C.RAD 13:04
PROVIDERS: ATTEND Urology
DX: N20.0 Calculus of kidney (principal)

== ENCOUNTER → 2017-09-04 | Outpatient (CLI) | payer OTHER ==
--- NOTE | 2017-09-04 10:42 | DIAGNOSTIC IMAGING REPORT ---
KUB CLINICAL HISTORY: N20.0 [id number] COMPARISON STUDY: 08/14/2017 FINDINGS: There is no pathologic bowel dilatation. There are granular fragmented lower pole right renal calculi measuring 17 mm in aggregate. Pelvic basin calcifications remain stable. IMPRESSION: Fragmented lower pole right renal calculi measuring 17 mm in aggregate. Electronically signed by: Dov Nicole M.D. 09/04/2017 10:41 AM Dictated Date/Time: 09/04/2017 10:40 AM
== END | disposition home or self-care (01) ==
LOC: C.RAD 09:58
PROVIDERS: ATTEND Urology
DX: N20.0 Calculus of kidney (principal)

== ENCOUNTER → 2017-11-20 | Outpatient (CLI) | payer OTHER ==
[2017-11-20 17:37] LABS: BASO % 0.3 %; BASO ABS # 0.03 K/uL (0-0.2); EOS % 3.6 %; EOS ABS # 0.31 K/uL (0-0.5); HEMATOCRIT 44.1 % (37-47); HEMOGLOBIN 14.7 g/dL (12.0-16.0); IG# 0.01 K/uL (0.00-0.02); LYMPH % 43.9 %; LYMPH ABS # 3.81 K/uL (1.2-3.4); MEAN CELL VOLUME 86.3 fL (80-100); MEAN CORPUSCULAR HEMOGLOBIN 28.8 pg (25-34); MEAN CORPUSCULAR HGB CONC 33.3 g/dl (32-36); MEAN PLATELET VOLUME 9.6 fL (7.4-10.4); MONO % 6.1 %; MONO ABS # 0.53 K/uL (0.11-0.59); NEUT ABS # 3.99 K/uL (1.4-6.5); PLATELET COUNT 248 K/uL (130-400); RED CELL DISTRIBUTION WIDTH CV 23.8 % (11.5-14.5); RED CELL DISTRIBUTION WIDTH SD 70.7 fL (36.4-46.3); WHITE BLOOD COUNT 8.68 K/uL (4.8-10.8)
[2017-11-20 17:47] LABS: PTT PATIENT 28.7 SECONDS (21.0-31.0)
[2017-11-20 18:00] LABS: BLOOD UREA NITROGEN 8 mg/dl (7-18); CALCIUM 9.3 mg/dl (8.5-10.1); CARBON DIOXIDE 27 mmol/L (21-32); GLUCOSE 96 mg/dl (70-99); POTASSIUM 3.7 mmol/L (3.5-5.1); SODIUM 138 mmol/L (136-145)
== END | disposition home or self-care (01) ==
LOC: C.LAB1850 17:14
PROVIDERS: ATTEND Urology
DX: N20.0 Calculus of kidney (principal)

== ENCOUNTER 2017-12-05 07:15 | Inpatient (IN) | payer OTHER ==
[2017-12-04 08:26] VITALS: BMI 26.0
[2017-12-05] VITALS (9 sets, daily range): BP systolic 101–120; BP diastolic 64–75; PULSE 70–105; TEMP 36.6–37.1; O2SAT 92–96; Ht 180.3 cm; Wt 93.3 kg
[~2017-12-05] VITALS: Ht 180.3 cm; Wt 93.3 kg
[~2017-12-05 07:15] MED LIST changes: +ACET-1311 PO; +CEFAZOLIN 2000MG IV PUSH 15 ML IV SCH; +LACTATED RINGER'S 1000ML 1,000 ML IV SCH; +MISSING PHYSICIAN SIGNATURE ON ORDER SCH; -OXYC-57 PO; +ROPI1TAB PO; +SCOPOLAMINE 1.5 MG TDSY TD SCH
[2017-12-05] MEDS ORDERED: CEFAZOLIN SOD 2000MG/15 ML IV PUSH ONE (08:16)
[2017-12-05] MEDS ORDERED: ONDANSETRON INJ 2 MG/ML 2 ML VIAL IV PRN ×2 (09:30→10:30)
[2017-12-05] MEDS ORDERED: LABETALOL HCL IV 5 MG/ML 20ML IV PRN (09:30)
[2017-12-05] MEDS ORDERED: ATROPINE SULFATE 0.1 MG/ML 5ML SYR IV PRN (09:30)
[2017-12-05] MEDS ORDERED: KETOROLAC TROMETHAMINE 30 MG/ML VIAL IV. PRN (09:30)
--- NOTE | 2017-12-05 09:36 | History & Physical Bridge Note ---
H&P Re-Evaluation Bridge Note: I have examined the patient, reviewed the History & Physical and in the interval since the performance of the History & Physical I have noted the following changes of clinical significance: No changes noted Right PCNL
[2017-12-05] MEDS ORDERED: Cysto-Conray II 17.2% 250ML BOTTLE ONE ×2 (09:50→12:12)
[2017-12-05] MEDS ORDERED: LIDOCAINE HCL 1% 20 ML VIAL ONE (09:50)
[2017-12-05] MEDS ORDERED: GELATIN SPONGE SZ 100 ONE (09:51)
[2017-12-05] MEDS ORDERED: BUPIVACAINE/EPINEPHRINE 0.5% MPF 1:200,000 30 ML VIAL ONE (09:51)
[2017-12-05] MEDS ORDERED: MIDAZOLAM HCL 1 MG/ML 2ML VIAL ONE (10:02)
[2017-12-05] MEDS ORDERED: FENTANYL CITRATE INJ 50 MCG/1 ML 2 ML VIAL ONE ×2 (10:02→12:46)
[2017-12-05] MEDS ORDERED: LIDOCAINE/EPINEPHRINE 1% 20 ML VIAL ONE (10:09)
[2017-12-05] MEDS ORDERED: TAMS0.4C38 PO (10:20)
[2017-12-05] MEDS ORDERED: CIPR-255 PO (10:20)
[2017-12-05] MEDS ORDERED: OXYC7.5T65 PO (10:20)
[2017-12-05] MEDS ORDERED: PHENAZOPYRIDINE HCL 200 MG TAB PO PRN (10:30)
[2017-12-05] MEDS ORDERED: CEFAZOLIN IV 1,000 MG in DEXTROSE 5% 50ML 50 ML IV SCH (10:30)
[2017-12-05] MEDS ORDERED: HYDROmorphone INJ 1 MG/ML SYR IV PRN (10:30)
[2017-12-05] MEDS ORDERED: PROPOFOL IV EMULSION 10 MG/ML 20 ML VIAL ONE (10:55)
[2017-12-05] MEDS ORDERED: LIDOCAINE HCL 2% 2 ML VIAL (20MG/ML) ONE (10:55)
[2017-12-05] MEDS ORDERED: DEXAMETHASONE SOD INJ 4 MG/ML VIAL ONE (10:55)
[2017-12-05] MEDS ORDERED: ROCURONIUM BROMIDE 10 MG/ML 5 ML VIAL ONE (10:55)
[2017-12-05] MEDS ORDERED: ONDANSETRON INJ 2 MG/ML 2 ML VIAL ONE (10:55)
[2017-12-05] MEDS ORDERED: GLYCOPYRROLATE INJ 0.2 MG/ML VIAL ONE (12:19)
[2017-12-05] MEDS ORDERED: NEOSTIGMINE METHYLSULFATE 5 MG/5 ML SYR ONE (12:19)
--- NOTE | 2017-12-05 12:55 | [facility] Operative Report ---
Operative Report Operative Date Dec 05, 2017. 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 Risks and benefits discussed. Description of Procedure Patient was consented and brought back to the operating room. Patient was placed under anesthesia in the supine position. At this point, a catheter was placed and the patient was moved to the prone position. Patient was prepped and draped in the regular sterile fashion. A time out was completed. With timeout completed, a nephrostogram was completed through the tube, the nephrostomy tube was unsecured, and a wire was placed. This wire was manipulated but was unabile to exit the calyx into the pelvis. Local anesthetic was placed into the skin. The nephrostomy tube was removed and an incision was made into the skin and subcutaneous tissues. The 8-10 Fr Dilator was taken over the wire and dilated the tract. The 10 fr sheath was left in place and a second wire was placed and secured once the sheath was removed. The balloon dilator was selected and the tissues were dilated to 12 mmHg. This was elevated for for adequate dilation and the nephrotomy sheath was placed over the partially deflated balloon. This was easily placed and advanced. The balloon was removed and the wire remained. The nephroscope was selected and taken into the pelvis.. The large debris was identified and the lithoclast device was selected. The stone was pulverized to fragments with the ultrasonic and pneumatic settings. Fragments were irrigated. The large stone burden was completely destroyed. Multiple attempts were made to access the renal pelvis. Nephrostograms also did not adequately identify the track to the renal pelvis. After multiple attempts to access with catheters, wire, and a flexible ureteroscope, it was decided to place a second wire into the dilated hydronephrotic calyx. No additional stone fragments were discovered. The Nephroscope was removed as well as the sheath and pressure was held for 5 minutes. Surgical foam was placed into the subcutaneous tissues for assistance with hemostasis. The 10 Fr Nephrostomy tube was placed and curled into the renal pelvis. A final nephrostogram was completed and found to be in good position within the hydronephrotic calyx. The skin was cleaned. A 2-0 Vicryl suture was used to close subcutaneous tissues. A 2-0 Silk was used to secure the tube in place. The Patient was cleaned and the nephrostomy tube bandaged. The patient was cleaned, aroused from anesthesia, and transferred to the pacu in stable condition having tolerated the procedure well with no complications. I was present and participated in all aspects of the procedure. I attest to the content of the Intraoperative Record and any orders documented therein. Any exceptions are noted below.
[2017-12-05] MEDS ORDERED: SUCCINYLCHOLINE CHLORIDE 20 MG/ML 10 ML VIAL IV ONE (13:07)
[2017-12-05] MEDS: FENTANYL CITRATE INJ 50 MCG/1 ML 2 ML VIAL IV PRN ×4 (13:20→13:38)
[2017-12-05 13:28] LABS: BASO % 0.2 %; BASO ABS # 0.03 K/uL (0-0.2); EOS % 0.3 %; EOS ABS # 0.04 K/uL (0-0.5); HEMATOCRIT 40.5 % (37-47); HEMOGLOBIN 13.6 g/dL (12.0-16.0); IG# 0.03 K/uL (0.00-0.02); LYMPH % 8.2 %; LYMPH ABS # 1.23 K/uL (1.2-3.4); MEAN CORPUSCULAR HEMOGLOBIN 30.2 pg (25-34); MEAN CORPUSCULAR HGB CONC 33.6 g/dl (32-36); MEAN PLATELET VOLUME 9.6 fL (7.4-10.4); MONO ABS # 1.06 K/uL (0.11-0.59); NEUT % 84.1 %; NEUT ABS # 12.66 K/uL (1.4-6.5); PLATELET COUNT 203 K/uL (130-400); RED CELL DISTRIBUTION WIDTH CV 21.5 % (11.5-14.5); RED CELL DISTRIBUTION WIDTH SD 68.9 fL (36.4-46.3); WHITE BLOOD COUNT 15.05 K/uL (4.8-10.8)
--- NOTE | 2017-12-05 13:45 | DIAGNOSTIC IMAGING REPORT ---
KUB CLINICAL HISTORY: PERCUTANEOUS NEPHROLITHOTOMY COMPARISON STUDY: PET CT 10/02/2017. FINDINGS: Total fluoroscopy time is 15 minutes and 14 seconds. A total of 10 fluoroscopic spot images submitted. Initial images demonstrate contrast opacification of the left renal collecting system from the indwelling percutaneous the prostate tube. The tube is located within the lower pole calyx. There is a small amount of extrarenal contrast inferiorly. The percutaneous nephrostomy tube was removed. There is a balloon dilatation performed at the percutaneous tract. This is followed by nephrolithotomy and replacement of a left percutaneous nephrostomy tube. IMPRESSION: Fluoroscopy provided for percutaneous nephrolithotomy with exchange of the nephrostomy tube. Electronically signed by: Raymundo Marley M.D. 12/05/2017 1:44 PM Dictated Date/Time: 12/05/2017 1:36 PM
[2017-12-05] MEDS ORDERED: HYDROmorphone INJ 0.5 MG/0.5 ML SYR ONE (13:46)
[2017-12-05 13:59] LABS: ALBUMIN 3.2 gm/dl (3.4-5.0); CALCIUM 8.5 mg/dl (8.5-10.1); CREATININE 0.92 mg/dl (0.60-1.20); POTASSIUM 3.7 mmol/L (3.5-5.1)
[2017-12-05] MEDS: D5W AND 1/2NSS + 20MEQ KCL 1,000 ML IV SCH (14:59)
--- NOTE | 2017-12-05 15:17 | Anesthesiology Progress Note ---
Anesthesia Post Op Note Date & Time Dec 05, 2017 at 15:17 Vital Signs Pain Intensity: 6.0 Vital Signs Past 12 Hours Date Time Temp Pulse Resp B/P (MAP) Pulse Ox O2 Delivery O2 Flow Rate FiO2 12/05/17 14:15 77 19 102/60 96 Nasal Cannula 4 12/05/17 14:05 37 82 13 112/73 95 Nasal Cannula 4 12/05/17 13:55 84 19 128/68 96 Nasal Cannula 4 12/05/17 13:45 84 20 114/72 95 Nasal Cannula 4 12/05/17 13:35 89 14 121/75 95 Nasal Cannula 4 12/05/17 13:25 90 15 123/83 98 Nasal Cannula 4 12/05/17 13:15 90 19 126/75 98 Oxymask 10 12/05/17 13:05 93 14 125/83 99 Oxymask 10 12/05/17 12:58 36.6 95 19 121/74 99 Oxymask 10 12/05/17 07:48 37.1 105 22 120/73 (89) 94 Room Air Notes Mental Status: alert / awake / arousable, participated in evaluation Pt Amnestic to Procedure: Yes Nausea / Vomiting: adequately controlled Pain: adequately controlled Airway Patency, RR, SpO2: stable & adequate BP & HR: stable & adequate Hydration State: stable & adequate Anesthetic Complications: no major complications apparent
[2017-12-05] MEDS: CHECK SCOPOLAMINE PATCH PLACEMENT SCH ×2 (15:57→23:47)
[2017-12-05] MEDS: CEFAZOLIN IV 1,000 MG in SYRINGE 0 ML IV SCH (17:28)
[2017-12-05] MEDS: OXYCODONE/ACETAMINOPHEN 5-325 TAB PO PRN ×2 (19:03→23:33)
[2017-12-05] MEDS: DOCUSATE SODIUM 100 MG CAP PO SCH (21:41)
[2017-12-06] MEDS: D5W AND 1/2NSS + 20MEQ KCL 1,000 ML IV SCH ×2 (00:41→10:05)
[2017-12-06] MEDS: CEFAZOLIN IV 1,000 MG in SYRINGE 0 ML IV SCH ×2 (02:23→10:04)
[2017-12-06 03:33] VITALS: BP 124/75; PULSE 77; TEMP 36.9; O2SAT 93
[2017-12-06] MEDS: OXYCODONE/ACETAMINOPHEN 5-325 TAB PO PRN ×3 (03:57→12:06)
[2017-12-06 07:26] VITALS: BP 108/72; PULSE 76; TEMP 37; O2SAT 95
[2017-12-06] MEDS: CHECK SCOPOLAMINE PATCH PLACEMENT SCH (07:34)
[2017-12-06] MEDS: DOCUSATE SODIUM 100 MG CAP PO SCH (07:34)
[2017-12-06 08:00] VITALS: O2SAT 95
[2017-12-06 09:10] LABS: HEMATOCRIT 38.2 % (37-47); HEMOGLOBIN 12.5 g/dL (12.0-16.0); MEAN CELL VOLUME 90.5 fL (80-100); MEAN CORPUSCULAR HEMOGLOBIN 29.6 pg (25-34); MEAN CORPUSCULAR HGB CONC 32.7 g/dl (32-36); MEAN PLATELET VOLUME 9.3 fL (7.4-10.4); PLATELET COUNT 203 K/uL (130-400); RED CELL DISTRIBUTION WIDTH CV 21.3 % (11.5-14.5); WHITE BLOOD COUNT 13.95 K/uL (4.8-10.8)
[2017-12-06 09:45] LABS: ALBUMIN 2.9 gm/dl (3.4-5.0); CALCIUM 8.4 mg/dl (8.5-10.1); CREATININE 0.64 mg/dl (0.60-1.20); POTASSIUM 3.5 mmol/L (3.5-5.1); TOTAL PROTEIN 6.8 gm/dl (6.4-8.2)
--- NOTE | 2017-12-06 11:07 | DIAGNOSTIC IMAGING REPORT ---
ABD/PELVIS NO IV OR ORAL CONT CLINICAL HISTORY: 47 years-old Female presenting with Stone. TECHNIQUE: Multidetector CT of the abdomen and pelvis was performed without the use of intravenous contrast. IV contrast: None. A dose lowering technique was used consistent with the principles of ALARA (as low as reasonably achievable). COMPARISON: Plain radiograph from 09/04/2017. CT DOSE (mGy.cm): The estimated cumulative dose is 1713.33 mGy.cm. FINDINGS: Mission Support Specialist topogram: Right nephrostomy tube now in place. Lung bases: Extensive dependent consolidation and volume loss greater on the right, most likely extensive atelectasis. Mild bronchial wall thickening. Normal heart size. No pericardial or pleural effusion. Liver: Normal morphology. No liver lesion. Patent hepatic vasculature. Biliary: No gross biliary ductal dilatation allowing for noncontrast technique. Normal gallbladder. Pancreas: Normal noncontrast appearance. Spleen: Normal noncontrast appearance. Adrenal glands: Right adrenal gland may be absent or atrophic. Left adrenal gland normal. Kidneys and ureters: A right nephrostomy tube is in place in the lower pole of the right kidney, and the previously noted dominant right renal calculus has been removed. A small subcapsular hematoma is evident anteriorly. This measures 4.8 x 1.5 cm. Foci of gas noted within the hematoma. This likely is post procedural. Punctate nonobstructing right renal calculus noted (series 3 image 205). Punctate nonobstructing calculus at the lower pole of the left kidney. Urothelial thickening evident on the right involving the nondistended right ureter. Left ureter normal. Bladder: Normal noncontrast appearance. Pelvic organs: Normal noncontrast appearance. Bowel: Normal appendix. No bowel obstruction. Hyperdensity within the appendix may suggest the presence of appendicoliths or prior contrast. No bowel obstruction. Peritoneal cavity: Small amount of free fluid in the pelvis. No free intraperitoneal gas. Small amount of fluid in the anterior and posterior right perirenal spaces, likely postprocedural. Lymph nodes: Prominent subcentimeter lymph nodes in the upper abdomen likely reactive. Vasculature: Atherosclerosis of the normal caliber abdominal aorta. Abdominal wall: Focal infiltration in the right anterior abdominal wall may be of prior port site. Hyperdensity associated with the right percutaneous nephrostomy tube in the subcutaneous tissue is of uncertain etiology (series 3 image 210). Musculoskeletal: Normal. IMPRESSION: 1. Hyperdense material associated with the right percutaneous nephrostomy tube in the subcutaneous tissue is of uncertain etiology. Correlate clinically to exclude retained surgical material. 2. Small right subcapsular renal hematoma likely postprocedural. 3. Small right retroperitoneal fluid and right urothelial thickening likely also post procedural. 4. Removal of the dominant right renal calculus. 5. Punctate bilateral renal calculi. 6. Small free fluid in the pelvis likely physiologic. 7. Extensive bilateral lower lobe atelectasis. Electronically signed by: Nicola Casiano M.D. 12/06/2017 11:05 AM Dictated Date/Time: 12/06/2017 10:52 AM
[2017-12-06 11:45] VITALS: BP 128/77; PULSE 81; TEMP 37.1; O2SAT 94
--- NOTE | 2017-12-06 12:35 | Discharge Instructions ---
Discharge Instructions Date of Service Dec 05, 2017. Admission Reason for Admission: STONE Discharge Discharge Diagnosis / Problem: Large right stone Discharge Goals Goal(s): Decrease discomfort, Improve function Activity Recommendations Activity Limitations: resume your previous activity Lifting Limitations: gradually increase as tolerated Exercise/Sports Limitations: gradually increase as tolerated . Instructions / Follow-Up Instructions / Follow-Up May have blood in urine. May have discomfort. May have stone passing. Call if any fevers or chills. Current Hospital Diet Patient's current hospital diet: Discharge Diet Recommended Diet: Regular Diet Procedures Procedures Performed: PCNL, Right Pending Studies Studies pending at discharge: no Medical Emergencies . Who to Call and When: Medical Emergencies: If at any time you feel your situation is an emergency, please call 911 immediately. . Non-Emergent Contact Non-Emergency issues call your: Primary Care Provider, Urologist Call Non-Emergent contact if: you have a fever, temperature is above 101, temperature is above 101.5, your pain is not controlled, your pain is worsening . . "Provider Documentation" section prepared by Ramirez Rodriguez. .
[2017-12-06 12:37] VITALS: BP 128/77; PULSE 81; TEMP 37.1; O2SAT 94
--- NOTE | 2017-12-06 17:00 | Discharge Summary ---
Discharge Summary Date of Service Dec 06, 2017. Admission Date/Reason Dec 05, 2017 at 10:26 Stone, Kidney. Discharge Date/Disposition Dec 05, 2017 Home Diagnosis Principal Diagnosis: Kidney Stone Procedure(s) Performed PCNL, Right Medication Reconciliation See List Admission Physical Exam As per Admitting History & Physical. Hospital Course Patient was admitted and underwent procedure. Did well postoperatively. Was monitored closely. By POD1 patient was ambulating. Tolerated diet. Pain was controlled. Plans for discharge were finalized in preparation for discharge. Discharge Instructions Please refer to the electronic Patient Visit Report (Discharge Instructions) for additional information.
== END 2017-12-06 13:15 | disposition home or self-care (01) | DRG 661 ==
LOC: C.ACU 07:15 → C.2T 10:26 → ENRESERV 14:06
PROVIDERS: ADMIT Urology; ATTEND Urology
PROC: 0T9030Z Drainage of Right Kidney with Drainage Device, Percutaneous Approach (ICD-10-PCS; principal; 2017-12-05 09:15)
PROC: 0T7 Urinary System, Dilation (ICD-10-PCS; principal; 2017-12-05 09:15)
PROC: 0TF Urinary System, Fragmentation (ICD-10-PCS; principal; 2017-12-05 09:15)
PROC: 0TP5X0Z Removal of Drainage Device from Kidney, External Approach (ICD-10-PCS; principal; 2017-12-05 09:15)
PROC: 0TC04ZZ Extirpation of Matter from Right Kidney, Percutaneous Endoscopic Approach (ICD-10-PCS; principal; 2017-12-05 09:15)
DX: N20.0 Calculus of kidney (principal); N28.89 Other specified disorders of kidney and ureter; Z93.6 Other artificial openings of urinary tract status; I15.2 Hypertension secondary to endocrine disorders; D64.9 Anemia, unspecified; G25.81 Restless legs syndrome; F17.200 Nicotine dependence, unspecified, uncomplicated; Z98.890 Other specified postprocedural states; Z79.899 Other long term (current) drug therapy; Z91.041 Radiographic dye allergy status

== ENCOUNTER 2018-09-18 05:51 | Inpatient (IN) ==
--- NOTE | 2018-09-03 15:05 | PAT Medication Instructions ---
Medication Instructions Date of Service September 03, 2018 Home Medications carvedilol [Coreg] 25 mg PO BID phenoxybenzamine 10 mg PO TID tamsulosin 0.4 mg PO QPM ropinirole 2 mg PO HS ASK your prescriber and surgeon phenoxybenzamine 10 mg PO TID STOP taking 24 hours before surgery ropinirole 2 mg PO HS Take morning of surgery With a small sip of water, OTHERWISE NOTHING TO EAT OR DRINK AFTER MIDNIGHT: carvedilol [Coreg] 25 mg PO BID Take evening before surgery carvedilol [Coreg] 25 mg PO BID tamsulosin 0.4 mg PO QPM Other Notes If you have any questions please call us at [phone] or [phone] or [phone] or [phone]
--- NOTE | 2018-09-04 09:17 | Anesthesiology Consultation ---
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 Recommend repeat ECHO 11/2018. Continued on current regimen. Chart Review Chart Review: Acceptable Risk for Surgery and Patient seen in Pre Admission Testing Teaching & Discussion Pre-Anesthesia Teaching/Discussion Notes: Instructed NPO after midnight before surgery,except medications with 15 cc of water. Medication instructions provided according to the PAT guidelines. History Surgery Operation Date: 09/18/18 07:30 Proposed Procedures p Right Robotic Laparoscopic Assisted Partial Nephrectomy - Ramirez Rodriguez II, DO Height/Weight Height: 5 ft 11.5 in Weight: 90 kg Allergies Allergy/AdvReac Type Severity Reaction Status Date / Time Iodinated Contrast- Oral and Allergy Intermediate HIVES Verified 08/29/18 11:02 IV Dye Medications Home Medications Medication Instructions Recorded Confirmed Last Taken carvedilol [Coreg] 25 mg PO BID 06/03/18 08/29/18 08/29/18 phenoxybenzamine 10 mg PO TID 06/03/18 08/29/18 08/29/18 tamsulosin 0.4 mg PO QPM 06/03/18 08/29/18 08/28/18 ropinirole 2 mg PO HS 08/29/18 08/29/18 08/28/18 Past Medical History Medical History Dyslipidemia History of pheochromocytoma S/P RESECTION (02/2017) History of supraventricular tachycardia ASSOCIATED WITH PHEOCHROMOCYTOMA PRIOR TO RESECTION (2016) Hypertension Kidney stones Left ventricular hypertrophy MONITORED BY CARDIO Restless leg syndrome Thyroid nodule PCP MONOTIRING Exercise / Class Metabolic Activity II 4-5 Yardwork/Stairs/Walk up hill Past Surgical History Surgical History History of cystoscopy Cystoscopy with dilation, stent placement: 06/09/18: LMA#4 at [facility] History of lithotripsy History of nephrolithotomy with removal of calculi History of pheochromocytoma PHEOCHROMOCYTOMA RESECTION/ADRENAL ADENOMA History of tonsillectomy History of tooth extraction Past Anesthesia History No Hx of Anesthesia Complications (EXCEPT PONV) and No Family Hx of Anesthesia Complications History of PONV No Hx of Motion Sickness and History of PONV (NO ISSUE WITH SCOPE PATCH USED PREVENTATIVE PER PT) Social History Smoking Status: Former smoker tobacco type: cigarettes Do You Dip or Chew Tobacco: No Smoking End Date: QUIT 2 YEARS AGO; 1/2 PPD X 25 YEARS Hx Alcohol Use: No Hx Substance Use: No substance use type: does not use Review of Systems Patient denies chest pain, shortness of breath, dyspnea on exertion, reflux, cough, wheezing, palpitations. Physical Exam Vital Signs VITALS BP P TEMP SP02 RESP PHYSICAL Full neck and c-spine range of motion. Full TMJ range of motion. TMD 3 finger breaths Mallampati Score 2 Dentition: full dentures upper/lower; edentulous Lungs: clear throughout to auscultation Cardiac: regular rate and rhythm, no murmurs noted Spine: normal Carotid arteries: negative bruit Extremities: no edema Testing Electrocardiogram Date: 06/04/18 Findings: + NSR @ (80) Chest X-Ray Date: 06/04/18 Findings: + NAD Echocardiogram Date: 02/11/17 EF> 70%. No RWMA. Severe cLVH. Type 2 DD. Mild MR. RVSP 37mmhg. Laboratory Results 09/04/18 09:29 09/04/18 09:29 Yellow 09/04/18 09:29 Clear (Clear) 09/04/18 09:29 5.0 (4.5-7.5) 09/04/18 09:29 Ur Specific Anderson 1.018 (1.000-1.030) 09/04/18 09:29 Negative (Negative) 09/04/18 09:29 Negative (Negative) 09/04/18 09:29 Negative (Negative) 09/04/18 09:29 Negative (Negative) 09/04/18 09:29 Ur Leukocyte Esterase Negative (Negative) 09/04/18 09:29 1-5 /hpf (0-5) 09/04/18 09:29 5-10 /hpf (0-4) H 09/04/18 09:29 U Hyaline Cast (Auto) 0 /lpf (0-5) 09/04/18 09:29 U Epithel Cells (Auto) 20-30 /lpf (0-5) H 09/04/18 09:29 Negative (Negative) 09/04/18 09:29 Blood Type A Positive 09/04/18 09:29 Antibody Screen NEGATIVE 09/04/18 09:29 09/04/18 UA 3+ blood, negative leukocyte esterase/nitrite
[2018-09-04 10:09] LABS: Basophils # (auto) 0.03 K/uL (0-0.2); Basophils % (auto) 0.4 %; Eosinophils # (auto) 0.71 K/uL (0-0.5); Eosinophils % (auto) 8.5 %; Hematocrit (blood only) 40.9 % (37-47); Hemoglobin 14.2 g/dL (12.0-16.0); Immature Granulocytes # (auto) 0.01 K/uL (0.00-0.02); Immature Granulocytes % (auto) 0.1 %; Lymphocytes # (auto) 2.72 K/uL (1.2-3.4); Lymphocytes % (auto) 32.5 %; Mean Corpuscular Hgb Conc 34.7 g/dL (32-36); Mean Corpuscular Volume 89.1 fL (80-100); Mean Platelet Volume 9.6 fL (7.4-10.4); Monocytes # (auto) 0.59 K/uL (0.11-0.59); Neutrophils # (auto) 4.32 K/uL (1.4-6.5); Neutrophils % (auto) 51.5 %; Platelet Count 245 K/uL (130-400); RDW Coefficient of Variation 17.8 % (11.5-14.5); RDW Standard Deviation 58.3 fL (36.4-46.3); Red Blood Count 4.59 M/uL (4.2-5.4); White Blood Count 8.38 K/uL (4.8-10.8)
[2018-09-04 10:12] LABS: Appearance Urine Clear (Clear); Bacteria Urine Automated Negative (Negative); Bilirubin Urine Negative (Negative); Blood Urine 3+ (Negative); Cast Urine Automated 0 /lpf (0-5); Color Urine Yellow; Epithelial Cell Urine Auto 20-30 /lpf (0-5); Glucose Urine UA Negative (Negative); Ketones Urine Negative (Negative); Leukocyte Esterase Urine Negative (Negative); Nitrite Urine Negative (Negative); Protein Urine Negative (Negative); Specific Gravity Urine 1.018 (1.000-1.030); Urobilinogen Urine Negative (Negative)
[2018-09-04 10:15] LABS: BUN Creatinine Ratio 11.4 (10-20); Calcium 8.6 mg/dl (8.5-10.1); Creatinine Clr Calc Pharmacy 106.2 ml/min; Est GFR (African American) 99.5; Est GFR (Non-African American) 85.9; Potassium 3.7 mmol/L (3.5-5.1)
[2018-09-18] MEDS ORDERED: CEFAZOLIN 3000MG 65 ML IV SCH (06:00)
[2018-09-18] MEDS ORDERED: LR 15ML/HR IV SCH (06:00)
[2018-09-18] MEDS ORDERED: SCOPOLAMINE 1.5 MG TDSY TD SCH (06:00)
[2018-09-18] MEDS ORDERED: BUPIVACAINE 0.5 % 5 MG/1 ML MPF 30ML VIAL ONE (07:01)
--- NOTE | 2018-09-18 07:08 | History & Physical Bridge Note ---
Date of Service September 18, 2018 History & Physical Bridge Note I have examined the patient, reviewed the History & Physical and in the interval since the performance of the History & Physical I have noted the following changes of clinical significance: no changes noted
[2018-09-18] MEDS ORDERED: LIDOCAINE HCL 2% 2 ML VIAL/AMP(20MG/ML) INFIL ONE (07:20)
[2018-09-18] MEDS ORDERED: fentaNYL citrate 100 MCG/2 ML VIAL ONE (07:20)
[2018-09-18] MEDS ORDERED: ROCURONIUM BROMIDE 10 MG/ML 5 ML VIAL ONE (07:20)
[2018-09-18] MEDS ORDERED: PROPOFOL IV EMULSION 10 MG/ML 20 ML VIAL IV ONE (07:20)
[2018-09-18] MEDS ORDERED: MIDAZOLAM HCL 1 MG/ML 2ML VIAL ONE ×2 (07:20→08:12)
[2018-09-18] MEDS ORDERED: MANNITOL 25% 12.5 GM/50 ML VIAL IV ONE (07:25)
[2018-09-18] MEDS ORDERED: ACETAMINOPHEN 1000 MG/100 ML IV IV ONE (07:25)
[2018-09-18] MEDS: CEFAZOLIN 2000MG 2,000 MG/15 ML SYR IV ONE ×2 (07:53→10:31)
[2018-09-18] MEDS ORDERED: ALBUMIN HUMAN 5% 12.5 GM/250 ML VIAL IV ONE (09:15)
[2018-09-18] MEDS ORDERED: TISSEEL FIBRIN SEALANT 10ML TOP ONE (09:55)
[2018-09-18] MEDS ORDERED: FLOSEAL HEMOSTATIC MATRIX 10ML TOP ONE (09:55)
[2018-09-18] MEDS ORDERED: SURGICEL ABSORB HEMOSTAT 2IN X 14IN TOP ONE (10:06)
[2018-09-18] MEDS ORDERED: PHENYLEPHRINE 100MCG/ML 5ML SYR ONE (11:06)
[2018-09-18] MEDS ORDERED: VASOPRESSIN 20 UNIT/ML VIAL ONE (11:06)
[2018-09-18] MEDS ORDERED: PROMETHAZINE HCL INJ 25 MG/ML 1 ML VIAL ONE (11:06)
[2018-09-18] MEDS ORDERED: ONDANSETRON INJ 2 MG/ML 2 ML VIAL ONE (11:06)
[2018-09-18] MEDS ORDERED: DEXAMETHASONE SOD INJ 4 MG/ML VIAL ONE (11:06)
[2018-09-18] MEDS ORDERED: ePHEDrine sulfate 50 MG/ML SYR ONE (11:06)
--- NOTE | 2018-09-18 12:42 | Post Operative Brief Note ---
Immediate Post Op Note v1 Date of Surgery September 18, 2018 Pre & Post Diagnosis Operation Date: 09/18/18 07:30 Pre-Op Diagnosis: Calyceal Diverticulum Right Kidney Post-Op Diagnosis: Calyceal Diverticulum Right Kidney Procedure Operation Date: 09/18/18 07:30 Actual Procedures p Right Robotic Assisted Laparoscopic Partial Nephrectomy(Right) - Ramirez Rodriguez II, DO Surgeon Ramirez Rodriguez II, DO Senior Graduate Advisor CRISTINA Marti and MD Venu Estimated Blood Loss 250 Findings Consistent with Post-Op Diagnosis Specimens Diverticulum Drains Aguilar Catheter (16 Fr. aguilar catheter placed by CONNIE Paulson without difficulty. Draining clear yellow urine. ) and Kevyn-Guido Drain (10mm Flat ALEX) Anesthesia Type General Complications none Disposition Disposition: Recovery Room Overlapping Procedure I was present for: the critical portions of procedure. I was immediately available: during the entire case. Back up surgeon: was not required during procedure.
[2018-09-18] MEDS: HYDROmorphone INJ 1 MG/ML SYRINGE IV PRN ×9 (13:07→22:40)
[2018-09-18] MEDS ORDERED: HYDROmorphone INJ 0.5 MG/0.5 ML SYR ONE (13:07)
--- NOTE | 2018-09-18 13:12 | Operative Report ---
Post Operative Report Pre & Post Diagnosis Operation Date: 09/18/18 07:30 Pre-Op Diagnosis: Calyceal Diverticulum Right Kidney Post-Op Diagnosis: Calyceal Diverticulum Right Kidney Procedure Operation Date: 09/18/18 07:30 Actual Procedures p Right Robotic Assisted Laparoscopic Partial Nephrectomy(Right) - Ramirez Rodriguez II, DO Surgeon Ramirez Rodriguez II, DO Radiology Assistant CRISTINA Marti and MD Venu Estimated Blood Loss 250 Findings Consistent with Post-Op Diagnosis Specimens Partial nephrectomy of calyceal diverticulum Drains 16 Fr aguilar 10 Fr Kenrick drain Anesthesia Type General Complications none Disposition Disposition: Recovery Room Indications Severe bothersome pain and recurrent stones in a dilated calyx/calyceal diverticulum that failed multiple attempted treatments. Risks and benefits discussed at length. Patient elected to undergo partial nephrectomy and ablation of diverticulum. Agreed to proceed. Description of Procedure The patient was brought to the operative suite and placed under general endotracheal intubation anesthesia in the supine position. The patient was transferred to the lateral position with the operative side up. At this point, the patient prepped and draped in the usual sterile fashion and a timeout was completed. Preoperative antibiotics of Ancef 2 grams had been given. CYNDY's and SCD's were placed on the patient's lower extremities. A catheter was placed using sterile technique. With the time out completed the patient was flexed and the skin was marked. The lateral camera port site was anesthetized. A small incision was made into the skin and subcutaneous tissues. A Varess needle was selected and placed. The needle was easily moved and it was irrigated and aspirated without any issues or concerns for placement. Insufflation commenced. Once insufflated, A camera port was placed. The cavity was insufflated to 12mmHG. A laparoscopic camera was placed and the abdominal cavity inspected. No concerning features were noted. At this point, the skin was marked for port placement and 8mm working ports were placed. The skin was anesthetized down to fascia and an approx 1cm incision was made to place the 2 x 8mm ports. Two 10 mm phlebotomist medical lab assistant ports were also placed in similar fashion under direct visualization. The robot was positioned and docked. The camera was placed and all trocars were positioned under direct visualization. CRISTINA Nichols was integral in port placement, camera utilization, and docking procedure. She remained in sterile attire and then proceeded to assist the remainder of the case. Dr. Gregorio Lea was readily available for assistance during hernandez portions of the proceeding procedure. Dr. Lea assumed the occupational therapist assistant role for the major portion of mass removal, vessel clamping, and closure of the kidney. At this point, I transitioned to the robotic console. The colon was mobilized medially to expose the retroperitoneum and the area assessed. Adhesions were freed to allow mobilization. A moderate amount of adhesions were noted from the colon and abdominal side wall from the previous retroperitoneal surgery. These were mobilized and were freed. These were dissected with blunt technique. Cautery was used to assist dissection and control bleeding. The retroperitoneal fat was assessed. The ureter and gonadal vein were identified. The ureter was isolated and dissection was taken superiorly. This was followed to the renal pelvis. The Renal Artery and Vein were then cleaned and exposed. The tissue planes developed nicely but dissection was slowed due to previous surgery on the right adrenal. Clamp placement was assessed and good access was achieved. The perirenal fat anterior to the kidney was then dissected. The lower pole of the kidney and surrounding tissues were exposed. The kidney was then further mobilized. The ultrasound probe was placed and the dilated calyx was further examined. The edges were marked. The calyx was found to be very dilated with a majority of the lower pole dilated. No new stone was discovered. Due to the large area it was decided to open the tissues and remove the dilated calyx/ diverticulum while trying to maintain a majority of the renal tissues. The Vessels were assessed a final time. 2 x Bulldog clamps were placed on the artery and 1 x Bulldog clamp on the vein. The kidney appeared to carlyn appropriately. The previously marked margins were used to start the incision into the kidney. The dilated calyceal diverticulum was opened to allow full assessment. Unfortunately, the clamps did not achieve as adequate of blockage. A significant bleed was noted. A 2-0 vicryl was used to close with a figure of eight stitch. This closed the bleed adequately. The surrounding renal parenchyma was also mildly bleeding. The clamps were reassessed and had not dislodged but did not supply adequate clamping. This excision was essentially completed off clamp because of this. The diverticulum was fully resected. The base tissues were fulgurated to ablate the tissues. Only a small amount of renal parenchyma tissue was resected during this resection. A 2-0 V-lock barbed suture with a hemolock on the end was then placed and a deep closure was completed of the tissues. This was completed in a running fashion. A second hemolock was placed on the end and tightened. Care was taken to completely close the collecting system opening. 2-0 Vicryl sutures were then used to close the edges of the parenchymal opening. A total of 3 vicryl sutures were used to close and bolster the edges. At this point, the bulldog clamps were removed. Total time with clamps was 38 minutes. The clamps however did not provide adequate closure as vigorous bleeding was encountered during the entire dissection and essentially this was complete off clamp. The kidney was full assessed after removal of clamps. No bleeding or other major areas of concern. Weck and Hemolock clips were used to bolster and tightened to approximate the edges. Yaya-seal agent was placed over the incision followed by a surgicel hemostatic agent sheet. This was then covered with Tisseel spray hemostatic age nt. Additional pieces of the surgicel sheet were placed under the liver and also placed on the vessels. No major bleeding or other issues. Gerota's tissues were replaced utilizing clips to cover the area. The excised tissues were then placed in an endocatch bag for removal. A Flat drain was placed through the camera robot arm port and the port was removed. It was positioned in the gutter lateral to the liver and colon. This was secured with a silk 1-0 suture. The entire dissection space was inspected one final time. No bleeding or injuries or areas of concern were noted. No tumor or other concerning features were noted. At this point, the robot was undocked and moved away from the patient. The port sites were all assessed laparoscopically. The endoscopic bag was moved into the perimedian port and removed through the port. The two 10 mm port sites were closed with the Maurizio Ghotra device. The other ports were assessed and no issues observed. The skin at each site was closed with a running Monocryl suture. The area was cleaned and glue placed on each incision. All counts were completed and correct x 2. The patient was cleaned and bandaged. She was moved back into the supine position The patient was cleaned, aroused from anesthesia, and transferred to the pacu in stable condition having tolerated the procedure well with no complications. I was present and participated in all aspects of the procedure. Gregorio Lea MD was integral in the major portion of the procedure as above. CRISTINA Nichols was critical in the portions as mentioned above. I attest to the content of the Intraoperative Record and any orders documented therein. Any exceptions are noted below.
[2018-09-18] MEDS ORDERED: PROMETHAZINE HCL 12.5 MG in SODIUM CHLORIDE 0.9% 50 ML IV PRN (13:16)
[2018-09-18] MEDS ORDERED: ePHEDrine sulfate 50 MG/ML AMP IV PRN (13:16)
[2018-09-18] MEDS ORDERED: FLUMAZENIL 0.1 MG/1 ML 10 ML VIAL IV PRN (13:16)
[2018-09-18] MEDS ORDERED: ONDANSETRON INJ 2 MG/ML 2 ML VIAL IV PRN (13:16)
[2018-09-18] MEDS ORDERED: NALOXONE HCL 0.4 MG/1 ML VIAL/CARP IV PRN (13:16)
[2018-09-18] MEDS ORDERED: ATROPINE SULFATE 0.1 MG/ML 10ML SYR IV PRN (13:16)
[2018-09-18] MEDS ORDERED: LABETALOL HCL IV 5 MG/ML 20ML IV PRN (13:16)
[2018-09-18] MEDS ORDERED: HYDROmorphone INJ 1 MG/ML SYRINGE ONE (13:27)
--- NOTE | 2018-09-18 14:06 | Anesthesiology Progress Note ---
Date of Service September 18, 2018 Anesthesia Post Procedure Vital Signs Vital Signs: Temp Pulse Pulse Resp BP BP Pulse Ox 09/18/18 14:00 82 18 100/54 L 93 09/18/18 13:50 36.5 C 75 18 100/58 L 93 09/18/18 13:40 75 18 100/50 L 93 09/18/18 13:30 80 18 103/63 94 09/18/18 13:20 81 18 107/78 94 09/18/18 13:10 78 15 107/67 94 09/18/18 13:02 36.4 C L 82 14 106/63 93 09/18/18 06:18 37.2 C 74 20 118/70 94 Pain Intensity Abdomen: Pain Intensity: 9 Transfer of Care Handoff Completed per policy Notes Mental Status: alert / awake / arousable Patient Amnestic to Procedure: Yes Nausea / Vomiting: adequately controlled Pain: adequately controlled Airway Patency, RR, SpO2: stable & adequate BP & HR: stable & adequate Hydration State: stable & adequate Anesthetic Complications: no major complications apparent
[2018-09-18] MEDS ORDERED: OXYCODONE HCL IR 5 MG TAB (IMMEDIATE RELEASE) PO PRN (14:47)
[2018-09-18] MEDS ORDERED: MoRPHine SULFATE 4 MG/ML 1 ML CARP\\VIAL IV PRN (14:47)
[2018-09-18 15:02] LABS: Basophils # (auto) 0.02 K/uL (0-0.2); Basophils % (auto) 0.2 %; Eosinophils # (auto) 0.01 K/uL (0-0.5); Eosinophils % (auto) 0.1 %; Hematocrit (blood only) 36.9 % (37-47); Hemoglobin 12.1 g/dL (12.0-16.0); Immature Granulocytes # (auto) 0.03 K/uL (0.00-0.02); Immature Granulocytes % (auto) 0.3 %; Lymphocytes % (auto) 9.2 %; Mean Platelet Volume 9.5 fL (7.4-10.4); Monocytes # (auto) 0.36 K/uL (0.11-0.59); Neutrophils # (auto) 10.46 K/uL (1.4-6.5); Neutrophils % (auto) 87.2 %; Platelet Count 214 K/uL (130-400); RDW Coefficient of Variation 18.3 % (11.5-14.5); RDW Standard Deviation 61.9 fL (36.4-46.3); Red Blood Count 4.01 M/uL (4.2-5.4); White Blood Count 11.98 K/uL (4.8-10.8)
[2018-09-18] MEDS: SODIUM CHLORIDE 0.9% 1000ML 1,000 ML IV SCH ×2 (15:12→22:40)
[2018-09-18 15:33] LABS: BUN Creatinine Ratio 8.9 (10-20); Creatinine Clr Calc Pharmacy 82.9 ml/min; Est GFR (African American) 71.9; Potassium 4.2 mmol/L (3.5-5.1)
[2018-09-18 15:43] LABS: Mean Corpuscular Hgb Conc 32.8 g/dL (32-36)
[2018-09-18] MEDS ORDERED: CHECK SCOPOLAMINE PATCH PLACEMENT SCH (16:00)
--- NOTE | 2018-09-18 16:55 | Urology Progress Note ---
Date of Service September 18, 2018 Assessment & Plan (1) Calyceal diverticulum: 47yo F POD #0 s/p Right robot assisted laproscopic R partial nephrectomy secondary to calyceal diverticulum by Dr. Rodriguez. Pain control is our largest issue. She is due for IV tylenol, this plus PO oxycodone should hopefully help. We want to avoid toradol at this time. Otherwise she is progressing as expected. VS stable, BP has been stable. ALEX with minimal output. She was hypotensive perioperatively. We have her home BP meds on hold, consulted hospitalist to help us manage. Appreciate input. Hopeful for discharge tomorrow if pain controlled and she continues to progress. Subjective 47yo F POD #0 s/p Right robot assisted laproscopic partial R nephrectomy secondary to calyceal diverticulum. Alert and oriented, transferred to PCU with telemetry post operatively. Patient still having trouble with pain control, appears very uncomfortable in bed/restless. Pain mostly in R flank as expected. She received dilaudid upon transfer, was able to get some rest then quickly woken in 10/10 pain. Denies n/v/f/c. ALEX draining minimal serosang, some shadowing around bandage but skin is soft. No sign of hematoma. Review of Systems Review of Systems: All systems reviewed & are unremarkable except as noted in HPI & below Physical Exam Physical Exam: A&Ox3, restless Abd soft, incisions C/D/I. ALEX site with shadowing - marked by nursing. No sign of hematoma around site. Scant serosang output. Results & Data Vital Signs (Past 12 Hours) Vital Signs Temp Pulse Pulse Resp BP BP Pulse Ox 09/18/18 15:17 65 16 106/64 96 09/18/18 14:39 37.0 C 78 18 103/61 93 09/18/18 14:15 69 18 103/67 93 09/18/18 14:00 82 18 100/54 L 93 09/18/18 13:50 36.5 C 75 18 100/58 L 93 09/18/18 13:40 75 18 100/50 L 93 09/18/18 13:30 80 18 103/63 94 09/18/18 13:20 81 18 107/78 94 09/18/18 13:10 78 15 107/67 94 09/18/18 13:02 36.4 C L 82 14 106/63 93 09/18/18 06:18 37.2 C 74 20 118/70 94 Laboratory Results Laboratory Results - last 48 hr 09/18/18 09/18/18 09/18/18 06:10 14:32 14:32 WBC 11.98 H RBC 4.01 L Hgb 12.1 Hct 36.9 L MCV 92.0 MCH 30.2 MCHC 32.8 RDW Std Deviation 61.9 H RDW Coeff of Denisha 18.3 H Plt Count 214 MPV 9.5 Immature Gran % (Auto) 0.3 Neut % (Auto) 87.2 Lymph % (Auto) 9.2 [place] % (Auto) 3.0 Eos % (Auto) 0.1 Baso % (Auto) 0.2 Immature Gran # (Auto) 0.03 H Neut # (Auto) 10.46 H Lymph # (Auto) 1.10 L [place] # (Auto) 0.36 Eos # (Auto) 0.01 Baso # (Auto) 0.02 Sodium 138 Potassium 4.2 Chloride 109 H Carbon Dioxide 25 Anion Gap 4.0 BUN 9 Creatinine 1.06 Est Cr Clr Drug Dosing 82.9 Est GFR ( Amer) 71.9 Est GFR (Non-Af Amer) 62.0 BUN/Creatinine Ratio 8.9 L Glucose 116 H Calcium 8.0 L POC Ur Test NEG
[2018-09-18] MEDS ORDERED: HYDROmorphone INJ 1 MG/ML SYRINGE IV PRN (17:13)
[2018-09-18] MEDS: ACETAMINOPHEN 1,000 MG/100 ML VIAL IV SCH ×2 (17:14→23:44)
[2018-09-18] MEDS: OXYCODONE HCL IR 5 MG TAB (IMMEDIATE RELEASE) PO PRN (17:15)
[2018-09-18] MEDS: CEFAZOLIN 2000MG 2,000 MG/15 ML SYR IV SCH ×2 (17:15→23:44)
--- NOTE | 2018-09-18 17:22 | Internal Medicine Consult Note ---
Date of Consultation September 18, 2018 Assessment & Plan (1) Stone, kidney: Patient had a right partial nephrectomy by urology. Pain meds will be continued and she will have intravenous fluids (2) Pheochromocytoma: This is diagnosed by 2 and half years ago she typically takes phenoxybenzamine which is an alpha antagonist to blunt effects of the pheochromocytoma this is currently on hold and likely re-begin once her blood pressure is little more robust. (3) Hypertension: Patient is hypotensive postoperatively we will volume replete her with saline will reduce her Coreg dose to a much lower dose to avoid rebound tachycardia History of Present Illness Attending Physician: Ramirez Rodriguez, II, DO History of Present Illness Patient seen postoperatively after she had a partial nephrectomy for recurrent stone enlargement and a diverticuli within her urinary collecting system. She was seen because of symptomatic hypotension in the postoperative state. Blood pressure was 90/73 with a map in the 70s. Is a history of pheochromocytoma weekly takes antihypertensive medications including Coreg 25 twice daily phenoxybenzamine 10 3 times daily. She recently has been on Flomax 0.4 and she does take as needed Lyrica for restless leg syndrome. Patient reportedly did not take her phenoxybenzamine but did take her Coreg in the preoperative state as directed by her surgeon She is still somewhat somnolent from postanesthesia she has no chest pain or pressure does not feel short of breath Allergies Allergy/AdvReac Type Severity Reaction Status Date / Time Iodinated Contrast- Oral and Allergy Intermediate HIVES Verified 09/18/18 06:15 IV Dye Home Medications Home Medications Medication Instructions Recorded Confirmed Type carvedilol [Coreg] 25 mg PO BID 06/03/18 09/18/18 History phenoxybenzamine 10 mg PO TID 06/03/18 09/18/18 History tamsulosin 0.4 mg PO QPM 06/03/18 09/18/18 History ropinirole 2 mg PO HS 08/29/18 09/18/18 History Patient History Medical History Dyslipidemia History of pheochromocytoma S/P RESECTION (02/2017) History of supraventricular tachycardia ASSOCIATED WITH PHEOCHROMOCYTOMA PRIOR TO RESECTION (2016) Hypertension Kidney stones Left ventricular hypertrophy MONITORED BY CARDIO Restless leg syndrome Thyroid nodule PCP [facility] Surgical History History of cystoscopy Cystoscopy with dilation, stent placement: 06/09/18: LMA#4 at [facility] History of lithotripsy History of nephrolithotomy with removal of calculi History of pheochromocytoma PHEOCHROMOCYTOMA RESECTION/ADRENAL ADENOMA History of tonsillectomy History of tooth extraction Social History Preferred Language: [place] Communication Ability: Effective Senior Manager Creative Services Required: No Beliefs That Will Affect Care: None Current Living Situation: Alone Other Information That Helps Us Care for You: No Feels Safe at Home: Yes Safety Concerns: Feels Safe At This Time Smoking Status: Never smoker Tobacco Type: cigarettes Do You Dip or Chew To bacco: No Smoking End Date: QUIT 2 YEARS AGO; 1/2 PPD X 25 YEARS Second Hand Exposure: No Tobacco Cessation Education Requested by Patient: No Hx Alcohol Use: No Hx Substance Use: No Review of Systems Review of Systems: ROS: well nourished well developed. No double vision blurry vision No problems with speech or swallowing No palpitations, chest pain or pressure No Wheezing or breathing issues She does have some postoperative abdominal pain and mild nausea but no vomiting or diarrhea No burning urine urine frequency or changes in color No focal joint pain or muscle pain No skin rashes or oral lesions No unusual bruising or bleeding No focused back pain or numbness or loss of strength No changes in memory or confusion Physical Exam Physical Exam: The patient appeared somewhat sedate from her postoperative state Vital signs as documented. Head exam is unremarkable. normocephalic, atraumatic Neck is without jugular venous distension, thyromegaly, or lymphademopathy Lungs are clear to auscultation and percussion. Cardiac exam reveals Rhythm is regular. First and second heart sounds normal. Abdominal exam reveals hypoactive bowel sounds, does have some pain with palpation mostly on the right side Extremities are nonedematous and both pedal pulses are present Neurologic exam is A&Ox3, Skin is warm Dry without bruises or lesions Results & Data Vital Signs (Past 12 Hours) Vital Signs Temp Pulse Pulse Resp BP BP Pulse Ox 09/18/18 15:17 65 16 106/64 96 09/18/18 14:39 37.0 C 78 18 103/61 93 09/18/18 14:15 69 18 103/67 93 09/18/18 14:00 82 18 100/54 L 93 09/18/18 13:50 36.5 C 75 18 100/58 L 93 09/18/18 13:40 75 18 100/50 L 93 09/18/18 13:30 80 18 103/63 94 09/18/18 13:20 81 18 107/78 94 09/18/18 13:10 78 15 107/67 94 09/18/18 13:02 36.4 C L 82 14 106/63 93 09/18/18 06:18 37.2 C 74 20 118/70 94
[2018-09-18] MEDS: ROPINIROLE HCL 1 MG TABLET PO SCH (20:58)
[2018-09-19] MEDS: HYDROmorphone INJ 1 MG/ML SYRINGE IV PRN ×2 (02:27→05:50)
[2018-09-19] MEDS: OXYCODONE HCL IR 5 MG TAB (IMMEDIATE RELEASE) PO PRN (02:37)
[2018-09-19 05:57] LABS: Basophils # (auto) 0.01 K/uL (0-0.2); Basophils % (auto) 0.1 %; Eosinophils # (auto) 0.04 K/uL (0-0.5); Eosinophils % (auto) 0.3 %; Hematocrit (blood only) 33.6 % (37-47); Immature Granulocytes # (auto) 0.01 K/uL (0.00-0.02); Immature Granulocytes % (auto) 0.1 %; Lymphocytes % (auto) 19.9 %; Mean Corpuscular Hgb Conc 32.7 g/dL (32-36); Mean Corpuscular Volume 93.6 fL (80-100); Monocytes # (auto) 1.26 K/uL (0.11-0.59); Monocytes % (auto) 10.4 %; Neutrophils # (auto) 8.36 K/uL (1.4-6.5); Neutrophils % (auto) 69.2 %; Platelet Count 208 K/uL (130-400); RDW Coefficient of Variation 18.4 % (11.5-14.5); RDW Standard Deviation 63.1 fL (36.4-46.3); Red Blood Count 3.59 M/uL (4.2-5.4); White Blood Count 12.08 K/uL (4.8-10.8)
[2018-09-19 06:26] LABS: BUN Creatinine Ratio 9.1 (10-20); Calcium 7.9 mg/dl (8.5-10.1); Creatinine Clr Calc Pharmacy 96.9 ml/min; Est GFR (African American) 87.6; Est GFR (Non-African American) 75.6; Potassium 3.8 mmol/L (3.5-5.1)
[2018-09-19] MEDS ORDERED: NALOXONE HCL 0.4 MG/1 ML VIAL/CARP IV PRN (07:42)
--- NOTE | 2018-09-19 07:52 | Urology Progress Note ---
Date of Service September 19, 2018 Assessment & Plan (1) Calyceal diverticulum: 47yo F POD #1 s/p Right robot assisted laproscopic partial R nephrectomy secondary to calyceal diverticulum. VS stable overnight, on supplemental O2 while sleeping. Labs reviewed, stable. Cr within normal limits. Mild drop in H/H as expected post operatively. Pain control continues to be largest issue, modestly controlled with PRN dilaudid and oxycodone. Will convert to SPECIMEN ACCESSIONER -dilaudid .2mg with 10 min lockout Continue scheduled IV tylenol and will add PRN Toradol. She has not been OOB yet, encouraged her to do so. Will add PT evaluation tomorrow if needed. D/C aguilar now. Maintain ALEX drain, please call service if ALEX output > 150cc/shift, communication order placed. Appreciate medicine's input for post operative BP management. Please advise on discharge medication plan. Overall doing well. Will transfer to med/surg. Will stay tonight, Dr. Lea to take over care this weekend. Pt aware. Subjective 47yo F POD #1 s/p Right robot assisted laproscopic partial R nephrectomy secondary to calyceal diverticulum. Still having pain control issues, dilaudid and oxycodone helping but still not well controlled, restless. Pain mostly in R flank as expected. Denies n/v/f/c. Abdomen feels slightly firm/ mildly distended. She is hungry. ALEX draining minimal serosang overnight. Review of Systems Review of Systems: All systems reviewed & are unremarkable except as noted in HPI & below Physical Exam Physical Exam: A&Ox3 RRR abd slightly firm/ mildly distended abd incisions c/d/i, mild ecchymosis Results & Data Vital Signs (Past 12 Hours) Vital Signs Temp Pulse Pulse Resp BP Pulse Ox 09/19/18 07:48 36.8 C 69 18 112/66 92 09/19/18 03:43 36.8 C 72 18 103/64 95 09/18/18 23:52 76 09/18/18 23:08 36.9 C 64 19 106/66 96 Laboratory Results Laboratory Results - last 48 hr 09/18/18 09/18/18 09/18/18 06:10 14:32 14:32 WBC 11.98 H RBC 4.01 L Hgb 12.1 Hct 36.9 L MCV 92.0 MCH 30.2 MCHC 32.8 RDW Std Deviation 61.9 H RDW Coeff of Denisha 18.3 H Plt Count 214 MPV 9.5 Immature Gran % (Auto) 0.3 Neut % (Auto) 87.2 Lymph % (Auto) 9.2 [place] % (Auto) 3.0 Eos % (Auto) 0.1 Baso % (Auto) 0.2 Immature Gran # (Auto) 0.03 H Neut # (Auto) 10.46 H Lymph # (Auto) 1.10 L [place] # (Auto) 0.36 Eos # (Auto) 0.01 Baso # (Auto) 0.02 Sodium 138 Potassium 4.2 Chloride 109 H Carbon Dioxide 25 Anion Gap 4.0 BUN 9 Creatinine 1.06 Est Cr Clr Drug Dosing 82.9 Est GFR ( Amer) 71.9 Est GFR (Non-Af Amer) 62.0 BUN/Creatinine Ratio 8.9 L Glucose 116 H Calcium 8.0 L POC Ur Test NEG 09/19/18 09/19/18 05:29 05:29 WBC 12.08 H RBC 3.59 L Hgb 11.0 L Hct 33.6 L MCV 93.6 MCH 30.6 MCHC 32.7 RDW Std Deviation 63.1 H RDW Coeff of Denisha 18.4 H Plt Count 208 MPV 9.0 Immature Gran % (Auto) 0.1 Neut % (Auto) 69.2 Lymph % (Auto) 19.9 [place] % (Auto) 10.4 Eos % (Auto) 0.3 Baso % (Auto) 0.1 Immature Gran # (Auto) 0.01 Neut # (Auto) 8.36 H Lymph # (Auto) 2.40 [place] # (Auto) 1.26 H Eos # (Auto) 0.04 Baso # (Auto) 0.01 Sodium 138 Potassium 3.8 Chloride 107 Carbon Dioxide 30 Anion Gap 1.0 L BUN 8 Creatinine 0.90 Est Cr Clr Drug Dosing 96.9 Est GFR ( Amer) 87.6 Est GFR (Non-Af Amer) 75.6 BUN/Creatinine Ratio 9.1 L Glucose 103 H Calcium 7.9 L POC Ur Test
--- NOTE | 2018-09-19 07:57 | Anesthesiology Progress Note ---
Date of Service September 19, 2018 Anesthesia Post Procedure Vital Signs Vital Signs: Temp Pulse Pulse Pulse Resp BP Pulse Ox 09/19/18 07:48 36.8 C 69 18 112/66 92 09/19/18 03:43 36.8 C 72 18 103/64 95 09/18/18 23:52 76 09/18/18 23:08 36.9 C 64 19 106/66 96 09/18/18 18:56 36.6 C 81 18 103/50 L 90 09/18/18 17:17 76 18 111/64 97 09/18/18 16:17 88 16 109/68 98 09/18/18 15:17 65 16 106/64 96 09/18/18 14:39 37.0 C 78 18 103/61 93 09/18/18 14:15 69 18 103/67 93 09/18/18 14:00 82 18 100/54 L 93 09/18/18 13:50 36.5 C 75 18 100/58 L 93 09/18/18 13:40 75 18 100/50 L 93 09/18/18 13:30 80 18 103/63 94 09/18/18 13:20 81 18 107/78 94 09/18/18 13:10 78 15 107/67 94 09/18/18 13:02 36.4 C L 82 14 106/63 93 Pain Intensity Abdomen: Pain Intensity: 4 Notes Mental Status: alert / awake / arousable and participated in evaluation Nausea / Vomiting: adequately controlled Pain: adequately controlled Airway Patency, RR, SpO2: stable & adequate BP & HR: stable & adequate Hydration State: stable & adequate
[2018-09-19] MEDS: ACETAMINOPHEN 1,000 MG/100 ML VIAL IV SCH ×3 (08:43→23:59)
[2018-09-19] MEDS: SODIUM CHLORIDE 0.9% 1000ML 1,000 ML IV SCH ×3 (08:44→18:01)
[2018-09-19] MEDS: CARVEDILOL 6.25 MG TAB PO SCH ×2 (08:45→21:22)
[2018-09-19] MEDS: HYDROmorphone HCL 0.5MG/ML 50 ML CASSETTE IV PRN ×2 (09:01→15:08)
[2018-09-19] MEDS: DOCUSATE SODIUM 100 MG CAP PO SCH ×2 (12:29→21:23)
[2018-09-19] MEDS: FAMOTIDINE 20 MG in SYRINGE 3 ML IV SCH ×2 (12:29→21:23)
[2018-09-19] MEDS: KETOROLAC TROMETHAMINE 15 MG/ML VIAL IV PRN ×3 (12:49→23:57)
[2018-09-19] MEDS ORDERED: Nursing to Pharmacy Communication ONE (15:56)
--- NOTE | 2018-09-19 17:05 | Hospitalist Progress Note ---
Date of Service September 19, 2018 Assessment & Plan (1) Stone, kidney: Patient had a right partial nephrectomy by urology. Pain meds will be continued and adjusted (2) Pheochromocytoma: This is diagnosed by 2 and half years ago she typically takes pheno xybenzamine which is an alpha antagonist to blunt effects of the pheochromocytoma this is currently on hold and likely re-begin once her blood pressure is little more robust. Blood pressure remains low on 09/19 (3) Hypertension: Patient blood pressure remains low we will still continue her reduced dose Coreg to avoid rebound tachycardia Subjective Patient has significant pain at the surgical site near 1 of what looks to be the robotic laparoscopic ports typical postoperative bruising and no unusual a ppearance pain is her biggest concern at this time. Her blood pressure is markedly low compared to her usual need for antihypertensive control Review of Systems Review of Systems: ROS: well nourished well developed. In significant discomfort No double vision blurry vision No problems with speech or swallowing No palpitations, chest pain or pressure No Wheezing or breathing issues Right sided lower abdominal pain without nausea vomiting or diarrhea No burning urine urine frequency or changes in color No focal joint pain or muscle pain No skin rashes or oral lesions No unusual bruising or bleeding No focused back pain or numbness or loss of strength No changes in memory or confusion Physical Exam Physical Exam: The patient appeared in mild to moderate distress Vital signs as documented. Head exam is unremarkable. normocephalic, atraumatic Neck is without jugular venous distension, thyromegaly, or lymphademopathy Lungs are clear to auscultation and percussion. Cardiac exam reveals Rhythm is regular. First and second heart sounds normal. Abdominal exam reveals point tenderness at the surgical site hypoactive bowel sounds guarding Extremities are nonedematous and both pedal pulses are present Neurologic exam is A&Ox3, no focal deficits, strength is equal bilateral Psychologically seems neither anxious or depressed Skin is warm Dry without bruises or lesions Results & Data Vital Signs (Past 12 Hours) Vital Signs Temp Pulse Resp BP Pulse Ox 09/19/18 15:18 36.9 C 74 16 94/63 L 90 09/19/18 10:20 36.7 C 84 21 107/67 90 09/19/18 07:48 36.8 C 69 18 112/66 92
[2018-09-19] MEDS: ROPINIROLE HCL 1 MG TABLET PO SCH (21:22)
[2018-09-19] MEDS: HEPARIN SOD 5,000 UNIT/0.5 ML VIAL SQ SCH (21:23)
[2018-09-20] MEDS: SODIUM CHLORIDE 0.9% 1000ML 1,000 ML IV SCH ×4 (03:06→23:44)
[2018-09-20] MEDS: KETOROLAC TROMETHAMINE 15 MG/ML VIAL IV PRN ×2 (03:08→14:03)
[2018-09-20] MEDS ORDERED: ALBUT/IPRATROP 3MG/0.5MG NEB 3 ML VIAL NEB STA (03:45)
--- NOTE | 2018-09-20 04:28 | Progress Note ---
Date of Service September 20, 2018 Subjective S: I was called to the bedside of the patient at approximately 330 am due to the complaint of SOB. Patient noted that she had become short of breath a few hours ago and was having chest pain that was worse with taking deep breaths. She said the pain was a dull ache in the centre of her chest. She also said she had a sore throat. She denied any cough, fevers, chills, back pain, palpitations. O: Her vitals were normal except for needing 4L O2 and was saturating at 93% Her lungs did have wheezes and rhonchi more prominent on the R. She had decrease breath sounds at the bases bilaterally. Heart sounds were regular and without any murmurs. Legs were without any significant edema or pain to palpation A/P: Patient with acute onset SOB and chest discomfort. Ddx include atelectasis, PE, early pneumonia, pulm edema. A CXR was obtained which showed the possibility of a small pleural effusion on the L side. Patient received a duoneb tx and felt much better and her lungs sounded much clearer. We will be transferring the patient down to PCU tele floor for closer monitoring. I have placed her on q4 duoneb tx and encouraged use of incentive spirometer. If her symptoms do not continue to improve it may be worth considering a CT scan of her chest to evaluate her symptoms further. Binu Orozco PGY3 resident Results & Data Vital Signs (Past 12 Hours) Vital Signs Temp Pulse Resp BP BP Pulse Ox 09/20/18 04:00 77 16 97 09/20/18 03:25 88 22 145/88 H 93 09/20/18 03:15 37.1 C 92 H 18 126/81 90 09/19/18 23:31 92 09/19/18 23:15 36.9 C 93 H 16 122/72 67 L 09/19/18 21:20 91 09/19/18 21:19 78 112/74 86 L 09/19/18 20:16 94 09/19/18 20:14 84 112/74 87 L
[2018-09-20] MEDS: ONDANSETRON INJ 2 MG/ML 2 ML VIAL IV PRN (04:40)
--- NOTE | 2018-09-20 07:05 | XRay Report ---
XR chest 1V portable CLINICAL HISTORY: Shortness of breath COMPARISON STUDY: 04/03/2019 FINDINGS: The heart is normal in size. There is no failure. There are low lung volumes. There are bib asilar opacities, likely representing subsegmental atelectasis. There are no significant pleural effu sions.[ IMPRESSION: 1. Low lung volumes with bibasilar opacities, likely atelectatic. Electronically signed by: Dov Nicole M.D. 09/20/2018 7:04 AM
[2018-09-20] MEDS: ALBUT/IPRATROP 3MG/0.5MG NEB 3 ML VIAL NEB SCH ×5 (07:16→23:01)
[2018-09-20 07:33] LABS: Basophils # (auto) 0.01 K/uL (0-0.2); Basophils % (auto) 0.1 %; Eosinophils # (auto) 0.28 K/uL (0-0.5); Eosinophils % (auto) 2.9 %; Hematocrit (blood only) 33.1 % (37-47); Hemoglobin 10.7 g/dL (12.0-16.0); Immature Granulocytes # (auto) 0.02 K/uL (0.00-0.02); Immature Granulocytes % (auto) 0.2 %; Lymphocytes # (auto) 2.15 K/uL (1.2-3.4); Lymphocytes % (auto) 22.3 %; Mean Corpuscular Hgb Conc 32.3 g/dL (32-36); Mean Corpuscular Volume 94.3 fL (80-100); Mean Platelet Volume 9.3 fL (7.4-10.4); Monocytes # (auto) 0.94 K/uL (0.11-0.59); Monocytes % (auto) 9.8 %; Neutrophils # (auto) 6.23 K/uL (1.4-6.5); Neutrophils % (auto) 64.7 %; Platelet Count 191 K/uL (130-400); RDW Coefficient of Variation 18.3 % (11.5-14.5); RDW Standard Deviation 62.6 fL (36.4-46.3); Red Blood Count 3.51 M/uL (4.2-5.4); White Blood Count 9.63 K/uL (4.8-10.8)
[2018-09-20 08:12] LABS: BUN Creatinine Ratio 11.6 (10-20); Calcium 7.9 mg/dl (8.5-10.1); Creatinine Clr Calc Pharmacy 111.8 ml/min; Est GFR (African American) 104.2; Est GFR (Non-African American) 89.9; Potassium 3.8 mmol/L (3.5-5.1)
[2018-09-20] MEDS: CARVEDILOL 6.25 MG TAB PO SCH ×2 (08:54→21:06)
[2018-09-20] MEDS: HEPARIN SOD 5,000 UNIT/0.5 ML VIAL SQ SCH ×2 (08:55→21:07)
[2018-09-20] MEDS: FAMOTIDINE 20 MG in SYRINGE 3 ML IV SCH ×2 (09:07→21:07)
[2018-09-20] MEDS: ACETAMINOPHEN 1,000 MG/100 ML VIAL IV SCH ×2 (09:08→16:34)
--- NOTE | 2018-09-20 09:34 | Urology Progress Note ---
Date of Service September 20, 2018 Assessment & Plan (1) Calyceal diverticulum: A/P 47 yo female POD#2 s/p R partial nephrectomy. Labile clinical course with intermittent hypotension, SOB and abdominal pain out of proportion to expected course. Labwork unimpressive, afebrile. Care d/w Dr. Eason - concern over the possibility of PE - will proceed with a CT scan chest with IV contrast. I think IV contrast administration should be safe seen rapid return to baseline Cr and relatively vascularized kidney intraoperatively even during dissection. Abdominal pain out of proportion to expected findings. Seen patient will be receiving IV contrast for CT chest will also obtain CT abd/pelvis simultaneously to evaluate surgical site and intraabdominal findings in the context of exam to r/o any worrisome findings and avoid the need for future contrast exposure. PT for ambulation, continue PALEONTOLOGICAL HELPER for now. Will await imaging findings. Monitored bed for now. (2) Shortness of breath: (3) Abdominal pain: Subjective 47 yo female POD#2 s/p R robotic partial nephrectomy for calyceal diverticulum. Her OVN events are noted, transferred back to PCU for closer monitoring due to SOB, issues with labile BP. Patient resting quietly in bed, tearful on disc ussion and exam today. She notes taking regular diet, no n/emesis, + BM yesterday. Activity seems to be limited by pain. Hospitalist notes and med adjustments are noted, BP good this AM. Low ALEX output at this time. Patient reports she continues to use and require Dilaudid PALEONTOLOGICAL HELPER regularly for pain. Afebrile, labwork wnl. She identifies the focus of abdominal pain at the camera port site radiating medially and across the abdomen. NC O2 in place. Review of Systems Constitutional: no fever and no chills Eyes: no diplopia Ear, Nose, Mouth, Throat: no ear trauma Cardiovascular: no chest pain Gastrointestinal: + abdominal pain and + bloating; no nausea and no vomiting Musculoskeletal: + back pain Integumentary: no acne and no boil Neurologic: no paralysis and no numbness Physical Exam Constitutional: + acute distress (mild distress) Eyes: eyes not dysmorphic ENMT: Ears: no external ear abnormality Neck: trachea midline; no anterior neck swelling Respiratory: + respiratory distress (minimal); no labored breathing and does not use accessory muscles Cardiovascular: Vessels: radial pulses present Gastrointestinal (Abdomen): Inspection/Auscultation: + abdomen distended Percussion/Palpation: + abdomen tender (tenderness on right and left midabdomen), + guarding and abdomen soft Mild ecchymosis at port sites, appropriate Musculoskeletal: Head/Neck/Chest: normocephalic and neck supple Skin: normal turgor Neurologic: awake; not obtunded Psychiatric: Orientation: oriented x 3 Lymphatic: no lymphadenopathy Results & Data Vital Signs (Past 12 Hours) Vital Signs Temp Pulse Pulse Resp BP BP Pulse Ox 09/20/18 07:43 37 C 85 16 116/78 93 09/20/18 07:16 80 18 86 L 09/20/18 06:59 36.8 C 77 16 116/72 92 09/20/18 04:30 36.8 C 81 20 116/77 97 09/20/18 04:00 77 16 97 09/20/18 03:25 88 22 145/88 H 93 09/20/18 03:15 37.1 C 92 H 18 126/81 90 09/19/18 23:31 92 09/19/18 23:15 36.9 C 93 H 16 122/72 67 L Laboratory Results Laboratory Results - last 48 hr 09/18/18 09/18/18 09/19/18 14:32 14:32 05:29 WBC 11.98 H 12.08 H RBC 4.01 L 3.59 L Hgb 12.1 11.0 L Hct 36.9 L 33.6 L MCV 92.0 93.6 MCH 30.2 30.6 MCHC 32.8 32.7 RDW Std Deviation 61.9 H 63.1 H RDW Coeff of Denisha 18.3 H 18.4 H Plt Count 214 208 MPV 9.5 9.0 Immature Gran % (Auto) 0.3 0.1 Neut % (Auto) 87.2 69.2 Lymph % (Auto) 9.2 19.9 [place] % (Auto) 3.0 10.4 Eos % (Auto) 0.1 0.3 Baso % (Auto) 0.2 0.1 Immature Gran # (Auto) 0.03 H 0.01 Neut # (Auto) 10.46 H 8.36 H Lymph # (Auto) 1.10 L 2.40 [place] # (Auto) 0.36 1.26 H Eos # (Auto) 0.01 0.04 Baso # (Auto) 0.02 0.01 Sodium 138 Potassium 4.2 Chloride 109 H Carbon Dioxide 25 Anion Gap 4.0 BUN 9 Creatinine 1.06 Est Cr Clr Drug Dosing 82.9 Est GFR ( Amer) 71.9 Est GFR (Non-Af Amer) 62.0 BUN/Creatinine Ratio 8.9 L Glucose 116 H Calcium 8.0 L 09/19/18 09/20/18 09/20/18 05:29 07:19 07:19 WBC 9.63 RBC 3.51 L Hgb 10.7 L Hct 33.1 L MCV 94.3 MCH 30.5 MCHC 32.3 RDW Std Deviation 62.6 H RDW Coeff of Denisha 18.3 H Plt Count 191 MPV 9.3 Immature Gran % (Auto) 0.2 Neut % (Auto) 64.7 Lymph % (Auto) 22.3 [place] % (Auto) 9.8 Eos % (Auto) 2.9 Baso % (Auto) 0.1 Immature Gran # (Auto) 0.02 Neut # (Auto) 6.23 Lymph # (Auto) 2.15 [place] # (Auto) 0.94 H Eos # (Auto) 0.28 Baso # (Auto) 0.01 Sodium 138 141 Potassium 3.8 3.8 Chloride 107 110 H Carbon Dioxide 30 26 Anion Gap 1.0 L 5.0 BUN 8 9 Creatinine 0.90 0.78 Est Cr Clr Drug Dosing 96.9 111.8 Est GFR ( Amer) 87.6 104.2 Est GFR (Non-Af Amer) 75.6 89.9 BUN/Creatinine Ratio 9.1 L 11.6 Glucose 103 H 84 Calcium 7.9 L 7.9 L
[2018-09-20] MEDS ORDERED: FAMOTIDINE 20 MG in SYRINGE 3 ML IV ONE (11:16)
[2018-09-20] MEDS ORDERED: CIMETIDINE 300 MG TABLET PO SCH (12:00)
[2018-09-20] MEDS ORDERED: methylPREDNISolone 40 MG in SYRINGE 0 ML IV SCH (12:30)
[2018-09-20] MEDS: DOCUSATE SODIUM 100 MG CAP PO SCH ×2 (13:00→21:06)
--- NOTE | 2018-09-20 13:10 | Hospitalist Progress Note ---
Date of Service September 20, 2018 Assessment & Plan (1) Shortness of breath: Shortness of breath could be from splinting from her CVA pain with atelectasis. We are going to pursue CT angiogram with pretreatment for IV dye prophylaxis to evaluate certainly if she does have a PE this makes to think complex especially if she has any signs of intra-abdominal bleeding or retroperitoneal bleeding on CT scan. (2) Stone, kidney: Patient had a right partial nephrectomy by urology. Pain meds will be continued and adjusted psych to evaluate for any additional causes of intra- abdominal discomfort (3) Pheochromocytoma: This is diagnosed by 2 and half years ago she typically takes phenoxybenzamine which is an alpha antagonist to blunt effects of the pheochromocytoma this is currently on hold and likely re-begin once her blood pressure is little more robust. Blood pressure remains low 09/20 (4) Hypertension: Patient blood pressure remains low we will still continue her reduced dose Coreg to avoid rebound tachycardia (5) Pneumonia: pt has infiltrate at right base, possible aspiration or gram negative pneumonia, will start zosyn Subjective Patient is in significant distress today with abdominal pain likely causing some splinting. She is also fairly significantly short of breath. Overnight the on- call physician gave her a nebulizer and did perform a chest x-ray which concert was concern for atelectasis. I personally spoke with Dr. Lea from neurology we feel that given the fact that her pain is out of proportion to her postoperative course and imaging study would be warranted to this and we are going to pursue a CT Enedina Chan for PE and abdomen pelvis CT. Given the fact that she is got an IV contrast dye allergy she needs to be premedicated with steroids and Benadryl prior to the test Review of Systems Review of Systems: ROS: Patient is in pain and diaphoretic No double vision blurry vision No problems with speech or swallowing No palpitations, chest pain or pressure No Wheezing or breathing issues Significant diffuse but more focally right abdominal pain with mild nausea but no vomiting d No burning urine No focal joint pain or muscle pain No skin rashes or oral lesions No unusual bruising or bleeding CVA right-sided focused back pain but no numbness or loss of strength No changes in memory or confusion Physical Exam Physical Exam: The patient appeared in moderate discomfort and diaphoretic Vital signs as documented. Head exam is unremarkable. normocephalic, atraumatic Neck is without jugular venous distension, thyromegaly, or lymphademopathy Lungs are initially the bases more so on the right Cardiac exam reveals tachycardic no murmurs Abdominal exam reveals significant tenderness of the abdomen left and right greater on the right, normal bowel sounds, there is some firmness around her upper scopic port sites Extremities are nonedematous and both pedal pulses are present Homans negative cords Neurologic exam is A&Ox3, no focal deficits, strength is equal bilateral Psychologically seems neither anxious or depre Skin is warm and dry Results & Data Vital Signs (Past 12 Hours) Vital Signs Temp Pulse Pulse Resp BP BP Pulse Ox 09/20/18 07:43 37 C 85 16 116/78 93 09/20/18 07:16 80 18 86 L 09/20/18 06:59 36.8 C 77 16 116/72 92 09/20/18 04:30 36.8 C 81 20 116/77 97 09/20/18 04:00 77 16 97 09/20/18 03:25 88 22 145/88 H 93 09/20/18 03:15 37.1 C 92 H 18 126/81 90
[2018-09-20] MEDS ORDERED: OPTIRAY 320 125ml IV PRN (15:57)
[2018-09-20] MEDS ORDERED: DiphenhydrAMINE HCL 50 MG/ML VIAL IV STA (16:04)
[2018-09-20] MEDS ORDERED: PIPERACILLIN/TAZOBACTAM 4.5 GM in DEXTROSE 5% 100 ML IV STA (16:06)
[2018-09-20] MEDS ORDERED: PIPERACILL/TAZOBAC CONSULT ACTIVE PRN (16:06)
--- NOTE | 2018-09-20 16:12 | CT Scan Report ---
CT ANGIOGRAM OF THE CHEST CLINICAL HISTORY: Atypical chest pain and shortness of breath. Suspected pulmonary embolism. COMPARISON STUDY: No previous studies for comparison. TECHNIQUE: Following the IV administration of 120 mL of Optiray-320, CT angiogram of the thorax was p erformed from the thoracic inlet to the lung bases utilizing the pulmonary embolus protocol. Images a re reviewed in the axial, sagittal, and coronal planes. IV contrast was administered without complica tion. MIP imaging was performed. A dose lowering technique was utilized adhering to the principles o f ALARA. CT DOSE: 1842.26 mGy.cm FINDINGS: There are borderline enlarged hilar lymph nodes. There is no pathologic axillary lymphadenopathy. There was no evidence of thoracic aortic dilatation. There were no pulmonary artery filling defects to indicate acute pulmonary embolism. There are trace bilateral pleural effusions There is moderately extensive bilateral lower lobe atelectasis/consolidation. Also present are multif ocal airspace opacities within the upper lobes. The proper clinical setting this could indicate a mul tifocal pneumonia. Clinical follow-up is advocated. There is a right subhepatic drain. IMPRESSION: 1. No evidence of acute pulmonary embolism 2. Trace bilateral pleural effusions 3. Extensive bilateral lower lobe atelectasis/consolidation 4. Scattered groundglass pulmonary opacities most pronounced in the upper lobes. This could indicate a multifocal pneumonitis. Clinical and imaging follow-up is advocated Electronically signed by: Dov Nicole M.D. 09/20/2018 4:11 PM
[2018-09-20] MEDS ORDERED: DiphenhydrAMINE HCL 50 MG/ML VIAL ONE (16:13)
--- NOTE | 2018-09-20 16:24 | CT Scan Report ---
CT abdomen pelvis veno w con CT DOSE: CLINICAL HISTORY: abdomen pain with recent surgery TECHNIQUE: Following a CT scan of the chest in which the patient received 120 cc of Optiray 320, imag ing through the abdomen and pelvis was performed. A dose lowering technique was utilized adhering to the principles of ALARA. COMPARISON STUDY: 09/04/2018 FINDINGS: There are small bilateral pleural effusions. There is extensive basilar atelectasis/consoli dation. No hepatic masses are visualized. The portal vein is present patent. There is a subhepatic drain pres ent. No gallbladder abnormalities are visualized. No splenic masses are visualized. No pancreatic masses are visualized. No adrenal masses are visualized. There is a slightly diminished right-sided nephrogram. Postsurgical changes involve the lower pole of the right kidney. There is fluid and gas surrounding the lower pole the right kidney. This is likely postsurgical, but infection collection can of course not be excluded. There is mild right renal pelv is and ureteral epithelial enhancement. Again clinical correlation will be necessary to exclude infec tion. There is no evidence of bowel obstruction. There is scattered subcutaneous gas, likely postsurgical. There is free fluid within the pelvis. No pathologic adnexal masses are visualized. There are no findings to indicate acute appendicitis. There is no acute diverticulitis. There is no CT evidence of IVC, iliac, or common femoral vein thrombus. There is no CT evidence of re nal vein thrombosis. IMPRESSION: 1. No evidence of IVC, renal, iliac, common femoral vein, or pelvic vein thrombus 2. Postsurgical changes involving the lower pole the right kidney. There is surrounding gas and fluid present. There is a slightly diminished right-sided nephrogram. There is right renal pelvis and righ t ureteral epithelial enhancement. Clinical correlation will be necessary to exclude infection. 3. No evidence of bowel obstruction. No evidence of acute diverticulitis. No evidence of acute append icitis 4. Free pelvic fluid. 5. Subcutaneous air likely postsurgical 6. Indwelling right subhepatic drain 7. Small pleural effusions.] Extensive bilateral lower lobe atelectasis/consolidation Electronically signed by: Dov Nicole M.D. 09/20/2018 4:22 PM
[2018-09-20] MEDS ORDERED: PIPERACILLIN/TAZOBACTAM 3.375 GM in DEXTROSE 5% 100 ML IV ONE (16:30)
[2018-09-20 18:01] LABS: BUN Creatinine Ratio 8.7 (10-20); Calcium 8.3 mg/dl (8.5-10.1); Creatinine Clr Calc Pharmacy 106.4 ml/min; Est GFR (African American) 98.1; Est GFR (Non-African American) 84.6; Potassium 3.9 mmol/L (3.5-5.1)
[2018-09-20] MEDS ORDERED: VANCOMYCIN CONSULT ACTIVE PRN (18:04)
[2018-09-20] MEDS ORDERED: VANCOMYCIN HCL 2,250 MG in SODIUM CHLORIDE 0.9% 500 ML IV SCH (18:15)
[2018-09-20] MEDS: PIPERACILLIN/TAZOBACTAM 3.375 GM in DEXTROSE 5% 100 ML IV SCH (21:06)
[2018-09-20] MEDS: methylPREDNISolone 40 MG in SYRINGE 0 ML IV SCH (21:09)
[2018-09-20] MEDS: ROPINIROLE HCL 1 MG TABLET PO SCH (21:36)
[2018-09-21] MEDS: ACETAMINOPHEN 1,000 MG/100 ML VIAL IV SCH ×4 (00:50→23:21)
[2018-09-21] MEDS: ALBUT/IPRATROP 3MG/0.5MG NEB 3 ML VIAL NEB SCH ×6 (02:40→23:09)
[2018-09-21] MEDS: PIPERACILLIN/TAZOBACTAM 3.375 GM in DEXTROSE 5% 100 ML IV SCH ×3 (03:46→21:28)
[2018-09-21] MEDS: HYDROmorphone HCL 0.5MG/ML 50 ML CASSETTE IV PRN (05:50)
[2018-09-21] MEDS: methylPREDNISolone 40 MG in SYRINGE 0 ML IV SCH (05:55)
[2018-09-21] MEDS ORDERED: VANCOMYCIN HCL 1,500 MG in SODIUM CHLORIDE 0.9% 500 ML IV SCH (06:00)
[2018-09-21 07:12] LABS: Hematocrit (blood only) 32.8 % (37-47); Hemoglobin 10.9 g/dL (12.0-16.0); Immature Granulocytes # (auto) 0.03 K/uL (0.00-0.02); Immature Granulocytes % (auto) 0.2 %; Lymphocytes # (auto) 0.83 K/uL (1.2-3.4); Lymphocytes % (auto) 6.5 %; Mean Corpuscular Hgb Conc 33.2 g/dL (32-36); Mean Corpuscular Volume 90.9 fL (80-100); Mean Platelet Volume 9.5 fL (7.4-10.4); Monocytes # (auto) 0.82 K/uL (0.11-0.59); Monocytes % (auto) 6.5 %; Neutrophils % (auto) 86.8 %; Platelet Count 187 K/uL (130-400); RDW Coefficient of Variation 17.5 % (11.5-14.5); RDW Standard Deviation 57.9 fL (36.4-46.3); Red Blood Count 3.61 M/uL (4.2-5.4); White Blood Count 12.68 K/uL (4.8-10.8)
[2018-09-21 07:51] LABS: BUN Creatinine Ratio 9.5 (10-20); Calcium 8.6 mg/dl (8.5-10.1); Creatinine Clr Calc Pharmacy 129.3 ml/min; Est GFR (African American) 119.3; Est GFR (Non-African American) 102.9; Potassium 3.9 mmol/L (3.5-5.1)
[2018-09-21] MEDS: SODIUM CHLORIDE 0.9% 1000ML 1,000 ML IV SCH ×3 (08:33→19:17)
[2018-09-21] MEDS: FAMOTIDINE 20 MG in SYRINGE 3 ML IV SCH ×2 (08:34→21:28)
[2018-09-21] MEDS: HEPARIN SOD 5,000 UNIT/0.5 ML VIAL SQ SCH ×2 (08:35→21:28)
[2018-09-21] MEDS: CARVEDILOL 6.25 MG TAB PO SCH ×2 (08:35→21:28)
--- NOTE | 2018-09-21 09:28 | Urology Progress Note ---
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 CT scan findings reassuring. They suggest slow GI function and poor activity level to be contributors to her current condition. She is much more ambulatory, using IS. Will discuss pulmonary toilette regimen with nursing. The importance of continued activity is emphasized. Will leave with regular diet if tolerating without nausea or emesis. Will leave GEOSCIENCES FACULTY MEMBER in place for now but the relation between narcotic use and constipation is reviewed. Dulcolax supp BID. Hopefully the patient will turn the corner today and be stable for DC home tomorrow. Patient vocalizes understanding of the treatment plan. Subjective 47 yo female POD#3 s/p R partial nephrectomy, events noted. CT scan done yesterday PM due to contrast allergy prep, images reviewed yesterday personally - no PE, + significant atelectasis, distended bowel in abdomen with clear postsurgical field, + free fluid in pelvis, expected postop findings. Patient denies nausea or emesis, taking PO, small BMs. She reportedly feels better than yesterday, significantly more ambulatory and mobile with improvement in her symptoms, R flank pain and distension persists. Remains afebrile, labwork stable, slight increase in WBC. Review of Systems Constitutional: no fever and no chills Eyes: no diplopia Ear, Nose, Mouth, Throat: no hearing loss Respiratory: no hemoptysis Cardiovascular: no chest pain Gastrointestinal: + abdominal pain; no vomiting Genitourinary: no difficulty urinating Integumentary: no acne and no boil Neurologic: no paralysis and no numbness Endocrine: + fatigue Hematologic / Lymphatic: no easy bleeding Physical Exam Constitutional: WD/WN, vitals as above no acute distress (mild distress) Eyes: eyes not dysmorphic ENMT: Ears: no external ear abnormality Neck: trachea midline; no anterior neck swelling Respiratory: no respiratory distress ( ), no labored breathing and does not use accessory muscles Cardiovascular: Vessels: radial pulses present Gastrointestinal (Abdomen): Inspection/Auscultation: + abdomen distended (improved) Percussion/Palpation: + abdomen tender (decreased) and abdomen soft; no guarding inc c/d/i Musculoskeletal: Head/Neck/Chest: normocephalic and neck supple Skin: normal turgor Neurologic: awake; not obtunded Psychiatric: Orientation: oriented x 3 Lymphatic: no lymphadenopathy Results & Data Vital Signs (Past 12 Hours) Vital Signs Temp Pulse Pulse Resp BP BP Pulse Ox 09/21/18 07:40 37 C 74 26 H 165/99 H 96 09/21/18 07:08 68 18 90 09/21/18 03:37 37.1 C 82 14 147/82 H 92 09/21/18 02:42 75 18 94 09/20/18 23:33 67 09/20/18 23:10 36.5 C 69 14 144/86 H 100 09/20/18 23:02 80 16 96 Laboratory Results Laboratory Results - last 48 hr 09/20/18 09/20/18 09/20/18 07:19 07:19 17:35 WBC 9.63 RBC 3.51 L Hgb 10.7 L Hct 33.1 L MCV 94.3 MCH 30.5 MCHC 32.3 RDW Std Deviation 62.6 H RDW Coeff of Denisha 18.3 H Plt Count 191 MPV 9.3 Immature Gran % (Auto) 0.2 Neut % (Auto) 64.7 Lymph % (Auto) 22.3 [place] % (Auto) 9.8 Eos % (Auto) 2.9 Baso % (Auto) 0.1 Immature Gran # (Auto) 0.02 Neut # (Auto) 6.23 Lymph # (Auto) 2.15 [place] # (Auto) 0.94 H Eos # (Auto) 0.28 Baso # (Auto) 0.01 Sodium 141 140 Potassium 3.8 3.9 Chloride 110 H 109 H Carbon Dioxide 26 26 Anion Gap 5.0 5.0 BUN 9 7 Creatinine 0.78 0.82 Est Cr Clr Drug Dosing 111.8 106.4 Est GFR ( Amer) 104.2 98.1 Est GFR (Non-Af Amer) 89.9 84.6 BUN/Creatinine Ratio 11.6 8.7 L Glucose 84 134 H Lactate Calcium 7.9 L 8.3 L Nasal Screen MRSA (PCR) 09/20/18 09/20/18 09/21/18 17:35 19:05 06:59 WBC 12.68 H RBC 3.61 L Hgb 10.9 L Hct 32.8 L MCV 90.9 MCH 30.2 MCHC 33.2 RDW Std Deviation 57.9 H RDW Coeff of Denisha 17.5 H Plt Count 187 MPV 9.5 Immature Gran % (Auto) 0.2 Neut % (Auto) 86.8 Lymph % (Auto) 6.5 [place] % (Auto) 6.5 Eos % (Auto) 0.0 Baso % (Auto) 0.0 Immature Gran # (Auto) 0.03 H Neut # (Auto) 11.00 H Lymph # (Auto) 0.83 L [place] # (Auto) 0.82 H Eos # (Auto) 0.00 Baso # (Auto) 0.00 Sodium Potassium Chloride Carbon Dioxide Anion Gap BUN Creatinine Est Cr Clr Drug Dosing Est GFR ( Amer) Est GFR (Non-Af Amer) BUN/Creatinine Ratio Glucose Lactate 1.1 Calcium Nasal Screen MRSA (PCR) Negative 09/21/18 06:59 WBC RBC Hgb Hct MCV MCH MCHC RDW Std Deviation RDW Coeff of Denisha Plt Count MPV Immature Gran % (Auto) Neut % (Auto) Lymph % (Auto) [place] % (Auto) Eos % (Auto) Baso % (Auto) Immature Gran # (Auto) Neut # (Auto) Lymph # (Auto) [place] # (Auto) Eos # (Auto) Baso # (Auto) Sodium 139 Potassium 3.9 Chloride 110 H Carbon Dioxide 24 Anion Gap 5.0 BUN 7 Creatinine 0.69 Est Cr Clr Drug Dosing 129.3 Est GFR ( Amer) 119.3 Est GFR (Non-Af Amer) 102.9 BUN/Creatinine Ratio 9.5 L Glucose 126 H Lactate Calcium 8.6 Nasal Screen MRSA (PCR)
[2018-09-21] MEDS: DOCUSATE SODIUM 100 MG CAP PO SCH ×2 (10:38→21:28)
[2018-09-21] MEDS: BISACODYL 10 MG SUPP PR SCH ×2 (10:39→21:29)
--- NOTE | 2018-09-21 13:57 | Hospitalist Progress Note ---
Date of Service September 21, 2018 Assessment & Plan (1) Shortness of breath: Right lower lobe pneumonia possible gram-negative or aspiration pneumonia, splinting from her CVA pain with atelectasis. CTA ruled out pulmonary embolism Patient is a vancomycin and Zosyn with MRSA nasal swab negative we will de- escalate to Zosyn, if the patient is going to go home transition to Augmentin for a additional 7 days may be indicated (2) Stone, kidney: Patient had a right partial nephrectomy by urology. Pain meds will be continued and adjusted surgical team is willing to continue WINDCHILL ADMINISTRATOR for another day (3) Pheochromocytoma: This is diagnosed by 2 and half years ago she typically takes phenoxybenzamine which is an alpha antagonist to blunt effects of the pheochromocytoma this is currently on hold and likely re-begin once her blood pressure is little more robust. Blood pressure improved with treatment of infection will resume her typical antihypertensives on 09/22 (4) Hypertension: Patient blood pressure remains low we will still continue her reduced dose Coreg to avoid rebound tachycardia (5) Pneumonia: pt has infiltrate at right base, possible aspiration or gram negative pneumonia, will start zosyn Subjective Patient looks somewhat improved today however CT scan is concerning for right lower lobe pneumonia. This could either be gram-negative pneumonia or aspiration pneumonia. Patient did improve with broadening of antibiotic coverage and nasal MRSA swab was negative Review of Systems Review of Systems: ROS: well nourished well developed. No double vision blurry vision No problems with speech or swallowing No palpitations, chest pain or pressure patient Patient has splinting of shortness of breath Abdomen is tender specifically at the right side where the entrance wounds are for robotic surgery No burning urine urine frequency or changes in color No focal joint pain or muscle pain No skin rashes or oral lesions No unusual bruising or bleeding No focused back pain or numbness or loss of strength No changes in memory or confusion Physical Exam Physical Exam: The patient appeared well nourished and normally developed. Vital signs as documented. Head exam is unremarkable. normocephalic, atraumatic Neck is without jugular venous distension, thyromegaly, or lymphademopathy Lungs Patient continues to have splinting and decreased breath sounds at the right base she has some rhonchi there Cardiac exam reveals Rhythm is regular. First and second heart sounds normal. Abdominal exam reveals point tenderness in the right side, normal bowel sounds, no masses, Extremities are nonedematous and both pedal pulses are present Neurologic exam is A&Ox3, no focal deficits, strength is equal bilateral Psychologically seems neither anxious or depressed Skin is warm Dry bruises postoperatively on the right side consistent with the typical postoperative state Results & Data Vital Signs (Past 12 Hours) Vital Signs Temp Pulse Resp BP BP Pulse Ox 09/21/18 11:14 80 18 90 09/21/18 11:12 36.9 C 75 20 156/84 H 90 09/21/18 07:40 37 C 74 26 H 165/99 H 96 09/21/18 07:08 68 18 90 09/21/18 03:37 37.1 C 82 14 147/82 H 92 09/21/18 02:42 75 18 94
[2018-09-21] MEDS ORDERED: PHENOXYBENZAMINE PO SCH (14:00)
[2018-09-21] MEDS: ROPINIROLE HCL 1 MG TABLET PO SCH (21:28)
[2018-09-22] MEDS: ALBUT/IPRATROP 3MG/0.5MG NEB 3 ML VIAL NEB SCH ×2 (03:02→07:13)
[2018-09-22] MEDS: PIPERACILLIN/TAZOBACTAM 3.375 GM in DEXTROSE 5% 100 ML IV SCH (03:32)
[2018-09-22 05:33] LABS: Basophils # (auto) 0.02 K/uL (0-0.2); Basophils % (auto) 0.1 %; Eosinophils # (auto) 0.05 K/uL (0-0.5); Eosinophils % (auto) 0.3 %; Hematocrit (blood only) 33.2 % (37-47); Hemoglobin 11.1 g/dL (12.0-16.0); Immature Granulocytes # (auto) 0.03 K/uL (0.00-0.02); Immature Granulocytes % (auto) 0.2 %; Lymphocytes # (auto) 2.02 K/uL (1.2-3.4); Lymphocytes % (auto) 13.5 %; Mean Corpuscular Hgb Conc 33.4 g/dL (32-36); Mean Corpuscular Volume 90.5 fL (80-100); Mean Platelet Volume 8.9 fL (7.4-10.4); Monocytes # (auto) 1.24 K/uL (0.11-0.59); Monocytes % (auto) 8.3 %; Neutrophils # (auto) 11.61 K/uL (1.4-6.5); Neutrophils % (auto) 77.6 %; Platelet Count 233 K/uL (130-400); RDW Coefficient of Variation 17.7 % (11.5-14.5); RDW Standard Deviation 58.6 fL (36.4-46.3); Red Blood Count 3.67 M/uL (4.2-5.4); White Blood Count 14.97 K/uL (4.8-10.8)
[2018-09-22 06:06] LABS: BUN Creatinine Ratio 11.6 (10-20); Calcium 8.2 mg/dl (8.5-10.1); Creatinine Clr Calc Pharmacy 132.4 ml/min; Est GFR (African American) 120.5; Est GFR (Non-African American) 103.9; Potassium 3.1 mmol/L (3.5-5.1)
[2018-09-22] MEDS ORDERED: POTASSIUM CHLORIDE 20 MEQ TABCR PO STA (08:02)
[2018-09-22] MEDS: ACETAMINOPHEN 1,000 MG/100 ML VIAL IV SCH (08:20)
[2018-09-22] MEDS: SODIUM CHLORIDE 0.9% 1000ML 1,000 ML IV SCH ×2 (08:21→08:41)
[2018-09-22] MEDS: FAMOTIDINE 20 MG in SYRINGE 3 ML IV SCH (08:21)
[2018-09-22] MEDS: DOCUSATE SODIUM 100 MG CAP PO SCH (08:21)
[2018-09-22] MEDS: HEPARIN SOD 5,000 UNIT/0.5 ML VIAL SQ SCH (08:22)
[2018-09-22] MEDS: BISACODYL 10 MG SUPP PR SCH (08:22)
[2018-09-22] MEDS ORDERED: CARVEDILOL 12.5 MG TAB PO SCH (09:00)
--- NOTE | 2018-09-22 09:37 | Urology Progress Note ---
Date of Service September 22, 2018 Assessment & Plan (1) Calyceal diverticulum: POD #4 s/p partial nephrectomy. Feeling well. ALEX drain removed at bedside without difficulty. Tolerating PO medication instead of CRIB CLERK. Will coordinate discharge. Subjective 47 YO F POD #4 s/p partial nephrectomy. Patient reports feeling much better today. Tolerating regular diet without nausea. Voiding spontaneously without hematuria or bother. She has moved her bowels x 2. CRIB CLERK discontinued this morning and patient tolerating with PO medication. Reports feeling ready for discharge. Review of Systems Review of Systems: All systems reviewed & are unremarkable except as noted in HPI & below Physical Exam Physical Exam: WN/WD NAD. Resp effort normal. No JVD, no edema. Abd soft +incisional tenderness. Incisions:+minor bruising at camera port, well approximated, surgical glue intact. ALEX: scant serosang drainage. : bladder non-distended. A&O x3, appropriate affect. Results & Data Vital Signs (Past 12 Hours) Vital Signs Temp Pulse Pulse Resp BP BP Pulse Ox 09/22/18 07:31 37.2 C 94 H 17 156/84 H 91 09/22/18 07:14 85 18 88 L 09/22/18 03:28 36.6 C 109 H 16 175/96 H 91 09/22/18 03:02 88 18 86 L 09/21/18 23:30 36.6 C 78 16 155/91 H 90 09/21/18 23:09 82 16 81 L 09/21/18 23:06 77
[2018-09-22] MEDS: ONDANSETRON INJ 2 MG/ML 2 ML VIAL IV PRN ×2 (10:55→13:24)
[2018-09-22] MEDS ORDERED: OXYCODONE HCL IR 5 MG TAB (IMMEDIATE RELEASE) PO PRN (11:18)
--- NOTE | 2018-09-22 12:30 | Hospitalist Progress Note ---
Date of Service September 22, 2018 Assessment & Plan (1) Calyceal diverticulum: - S/p partial nephrectomy, POD#4. - Pain control per primary team - Dilaudid CLINICAL ENGINEER was d/c'ed this morning; can be discharged to home if pain is well controlled with PO narcotics later this afternoon. - ALEX drain removed at bedside; will need close follow up with urology. - DVT ppx: Heparin q12hr. (2) Pheochromocytoma: - Diagnosed 2.5 years ago; takes phenoxybenzamine at home, held due to hypotension post op. - Can resume med (would need to bring from home, is non-formulary) as BP is now stable. (3) Shortness of breath: - Now improved, stable on room air. - CTA was negative for PE, did have RLL PNA. - Treatment of infection as noted below. (4) Pneumonia: - Right lung infiltrate noted on imaging - aspiration vs gram negative. - Received Zosyn/Vancomycin -- will convert to PO Augmentin for 7 day course. - Duonebs q4hr scheduled. - Denies upper/lower respiratory tract issues. (5) Hypertension: - Resumed home Coreg at lower dose due to hypotension post op -- can continue to titrate as tolerated, 12.5 mg BID this morning. (6) Restless leg syndrome: - Continue Requip as prescribed. (7) Electrolyte abnormality: - K level 3.1 -- ordered K 60 mEq PO. - Mag level 1.7 -- ordered mag oxide 400 mg x 1 dose. (8) DVT prophylaxis: - Heparin 5,000 units subQ q12hr. Dispo: Pt. is stable for discharge pending pain control after d/c'ing Dilaudid CLINICAL ENGINEER. Will sign off, please call with any questions. Subjective Pt. is doing well overall. Used Dilaudid CLINICAL ENGINEER overnight, discontinued this morning. Pt. stated pain was well controlled but was using CLINICAL ENGINEER to that point. Will evaluate pain throughout course of the day -- can be discharged to home later today if pain well controlled with oral agents. Denies cough, SOB, nasal congestion, sore throat, etc. Will need to complete course of abx for PNA. Is having BMs, denies urinary retention. Review of Systems Review of Systems: All systems reviewed & are unremarkable except as noted in HPI & below Constitutional: no fever, no chills, no fatigue and no weakness Respiratory: no cough, no dyspnea, no dyspnea on exertion and no wheezing Cardiovascular: no chest pain, no palpitations and no edema Gastrointestinal: no abdominal pain, no nausea and no constipation Genitourinary: no difficulty urinating Musculoskeletal: no back pain, no neck pain and no joint pain Integumentary: no non-healing lesions Allergy / Immunological: no rash Results & Data Vital Signs (Past 12 Hours) Vital Signs Temp Pulse Pulse Resp BP BP Pulse Ox 09/22/18 11:51 36.5 C 83 18 138/83 90 09/22/18 11:22 90 09/22/18 07:31 37.2 C 94 H 17 156/84 H 91 09/22/18 07:14 85 18 88 L 09/22/18 03:28 36.6 C 109 H 16 175/96 H 91 09/22/18 03:02 88 18 86 L Laboratory Results 09/22/18 09/22/18 09/22/18 Range/Units 05:22 05:22 05:22 WBC 14.97 H (4.8-10.8) K/uL RBC 3.67 L (4.2-5.4) M/uL Hgb 11.1 L (12.0-16.0) g/dL Hct 33.2 L (37-47) % MCV 90.5 (80-100) fL MCH 30.2 (25-34) pg MCHC 33.4 (32-36) g/dL RDW Std Deviation 58.6 H (36.4-46.3) fL RDW Coeff of Denisha 17.7 H (11.5-14.5) % Plt Count 233 (130-400) K/uL MPV 8.9 (7.4-10.4) fL Immature Gran % (Auto) 0.2 % Neut % (Auto) 77.6 % Lymph % (Auto) 13.5 % [place] % (Auto) 8.3 % Eos % (Auto) 0.3 % Baso % (Auto) 0.1 % Immature Gran # (Auto) 0.03 H (0.00-0.02) K/uL Neut # (Auto) 11.61 H (1.4-6.5) K/uL Lymph # (Auto) 2.02 (1.2-3.4) K/uL [place] # (Auto) 1.24 H (0.11-0.59) K/uL Eos # (Auto) 0.05 (0-0.5) K/uL Baso # (Auto) 0.02 (0-0.2) K/uL Sodium 139 (136-145) mmol/L Potassium 3.1 L D (3.5-5.1) mmol/L Chloride 105 (98-107) mmol/L Carbon Dioxide 27 (21-32) mmol/L Anion Gap 7.0 (3-11) BUN 8 (7-18) mg/dl Creatinine 0.67 (0.6-1.2) mg/dl Est Cr Clr Drug Dosing 132.4 ml/min Est GFR ( Amer) 120.5 Est GFR (Non-Af Amer) 103.9 BUN/Creatinine Ratio 11.6 (10-20) Glucose 108 H (70-99) mg/dl Calcium 8.2 L (8.5-10.1) mg/dl Magnesium 1.7 L (1.8-2.4) mg/dl
[2018-09-22] MEDS ORDERED: MAGNESIUM OXIDE 400 MG TAB PO ONE (12:40)
[2018-09-22] MEDS ORDERED: POTASSIUM CHLORIDE 20 MEQ TABCR PO ONE (13:00)
--- NOTE | 2018-09-22 14:36 | Hospitalist Progress Note ---
Date of Service September 22, 2018 Assessment & Plan (1) Calyceal diverticulum: - S/p partial nephrectomy, POD#4. - Pain control per primary team - Dilaudid OPERATORS TEACHER was d/c'ed this morning; can be discharged to home if pain is well controlled with PO narcotics later this afternoon. - ALEX drain removed at bedside; will need close follow up with urology. - DVT ppx: Heparin q12hr. (2) Pheochromocytoma: - Diagnosed 2.5 years ago; takes phenoxybenzamine at home, held due to hypotension post op. - Can resume med (would need to bring from home, is non-formulary) as BP is now stable. (3) Shortness of breath: - Now improved, stable on room air. - CTA was negative for PE, did have RLL PNA. - Treatment of infection as noted below. - May also be related to pulm edema as pt. gained >10 kg during this admission; was weaned to room air, no evidence of acute respiratory distress on discharge. (4) Pneumonia: - Right lung infiltrate noted on imaging - aspiration vs gram negative. - Received Zosyn/Vancomycin -- will convert to PO Augmentin for 7 day course. - Duonebs q4hr scheduled. - Denies upper/lower respiratory tract issues. (5) Hypertension: - Resumed home Coreg at lower dose due to hypotension post op -- can continue to titrate as tolerated, 12.5 mg BID this morning. - Will resume Coreg 25 mg BID this evening. (6) Restless leg syndrome: - Continue Requip as prescribed. (7) Electrolyte abnormality: - K level 3.1 -- ordered K 60 mEq PO. - Mag level 1.7 -- ordered mag oxide 400 mg x 1 dose. (8) DVT prophylaxis: - Heparin 5,000 units subQ q12hr. Dispo: Pt. is stable for discharge pending pain control after d/c'ing Dilaudid OPERATORS TEACHER. Will sign off, please call with any questions. Supervising Physician Co-Signing Physician Notes PA Supervision Note: I did not personally see or examine the patient today, but I verified all hernandez points of JOSH Hannah's assessment and plan with the following exceptions/additions: None Subjective Pt. is doing well overall. Used Dilaudid OPERATORS TEACHER overnight, discontinued this morning. Pt. stated pain was well controlled but was using OPERATORS TEACHER to that point. Will evaluate pain throughout course of the day -- can be discharged to home later today if pain well controlled with oral agents. Denies cough, SOB, nasal congestion, sore throat, etc. Will need to complete course of abx for PNA. Is having BMs, denies urinary retention. Review of Systems Review of Systems: All systems reviewed & are unremarkable except as noted in HPI & below Constitutional: no fever, no chills, no fatigue and no weakness Respiratory: no cough, no dyspnea, no dyspnea on exertion and no wheezing Cardiovascular: no chest pain, no palpitations and no edema Gastrointestinal: no abdominal pain, no nausea and no constipation Genitourinary: no difficulty urinating Musculoskeletal: no back pain and no joint pain Integumentary: no non-healing lesions Allergy / Immunological: no rash Physical Exam Physical Exam: General: Resting comfortably in no apparent distress HEENT: NC/AT; PERRLA with EOMI; [place] conjunctiva, MMM. No erythema of posterior pharynx Neck: Supple and nontender Cardiac: RRR Lungs: CTA bilaterally Abdomen: Bowel normoactive X 4; Nontender to palpation Extremities: Warm. No edema present Neuro: No focal weakness Skin: No rash; incision site with dressing in place, drains with serosanguinous output. Results & Data Vital Signs (Past 12 Hours) Vital Signs Temp Pulse Pulse Pulse Pulse Resp BP 09/22/18 12:51 36.5 C 65 85 83 18 138/83 09/22/18 11:51 36.5 C 83 18 138/83 09/22/18 11:22 90 09/22/18 07:31 37.2 C 94 H 17 156/84 H 09/22/18 07:14 85 18 09/22/18 03:28 36.6 C 109 H 16 09/22/18 03:02 88 18 BP Pulse Ox 09/22/18 12:51 90 09/22/18 11:51 90 09/22/18 11:22 09/22/18 07:31 91 09/22/18 07:14 88 L 09/22/18 03:28 175/96 H 91 09/22/18 03:02 86 L Laboratory Results 09/22/18 09/22/18 09/22/18 Range/Units 05:22 05:22 05:22 WBC 14.97 H (4.8-10.8) K/uL RBC 3.67 L (4.2-5.4) M/uL Hgb 11.1 L (12.0-16.0) g/dL Hct 33.2 L (37-47) % MCV 90.5 (80-100) fL MCH 30.2 (25-34) pg MCHC 33.4 (32-36) g/dL RDW Std Deviation 58.6 H (36.4-46.3) fL RDW Coeff of Denisha 17.7 H (11.5-14.5) % Plt Count 233 (130-400) K/uL MPV 8.9 (7.4-10.4) fL Immature Gran % (Auto) 0.2 % Neut % (Auto) 77.6 % Lymph % (Auto) 13.5 % [place] % (Auto) 8.3 % Eos % (Auto) 0.3 % Baso % (Auto) 0.1 % Immature Gran # (Auto) 0.03 H (0.00-0.02) K/uL Neut # (Auto) 11.61 H (1.4-6.5) K/uL Lymph # (Auto) 2.02 (1.2-3.4) K/uL [place] # (Auto) 1.24 H (0.11-0.59) K/uL Eos # (Auto) 0.05 (0-0.5) K/uL Baso # (Auto) 0.02 (0-0.2) K/uL Sodium 139 (136-145) mmol/L Potassium 3.1 L D (3.5-5.1) mmol/L Chloride 105 (98-107) mmol/L Carbon Dioxide 27 (21-32) mmol/L Anion Gap 7.0 (3-11) BUN 8 (7-18) mg/dl Creatinine 0.67 (0.6-1.2) mg/dl Est Cr Clr Drug Dosing 132.4 ml/min Est GFR ( Amer) 120.5 Est GFR (Non-Af Amer) 103.9 BUN/Creatinine Ratio 11.6 (10-20) Glucose 108 H (70-99) mg/dl Calcium 8.2 L (8.5-10.1) mg/dl Magnesium 1.7 L (1.8-2.4) mg/dl
[2018-09-22] MEDS ORDERED: AMOXICILLIN/CLAVULANATE 875 MG TAB PO SCH (17:00)
--- NOTE | 2018-09-26 07:13 | Discharge Summary ---
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 See H&P for full report. Admission Exam Per Admitting Provider See H&P Principal Diagnosis Dilated Calyx Discharge Exam Constitutional WD/WN, vitals as above no acute distress (mild distress) Eyes eyes not dysmorphic ENMT Ears: no external ear abnormality Neck trachea midline; no anterior neck swelling Respiratory no respiratory distress ( ), no labored breathing and does not use accessory muscles Cardiovascular Vessels: radial pulses present Gastrointestinal (Abdomen) Inspection/Auscultation: + abdomen distended (improved) Percussion/Palpation: + abdomen tender (decreased) and abdomen soft; no guarding Musculoskeletal Head/Neck/Chest: normocephalic and neck supple Skin normal turgor Neurologic awake; not obtunded Psychiatric Orientation: oriented x 3 Lymphatic no lymphadenopathy Discharge Data Allergies Allergy/AdvReac Type Severity Reaction Status Date / Time Iodinated Contrast- Oral and Allergy Intermediate HIVES Verified 09/18/18 06:15 IV Dye Consultations 09/18/18 14:47 Consult Hospitalist Routine Procedures Performed Operation Date: 09/18/18 07:30 Actual Procedures p Right Robotic Assisted Laparoscopic Partial Nephrectomy(Right) - Ramirez Rodriguez II, DO Ordered Studies 09/20/18 14:00 CT abdomen pelvis veno w con Stat CT angio chest PE protocol Stat Hospital Course (1) 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 Risks and benefits discussed. Patient went OR for partial nephrectomy. Post op did well. Did have some mild hypotension secondary to medication. Did well once pain was controlled. POD1 patient was ambulating and still had pain issues. Was changed to CATEGORY DIRECTOR with improved. Improved with time. Had constipation issues which caused bloating and discomfort. Had CTA of chest due to pain and found to be normal. CT of abdomen also showed expected post surgical changes without issues. Patient improved and began ambulating. Tolerated diet. Changed to PO medications. POD #4 s/p partial nephrectomy. Feeling well. ALEX drain removed at bedside without difficulty. Tolerating PO medication instead of CATEGORY DIRECTOR. Will coordinate discharge. Patient was discharged that afternoon Total Time Total Time Spent Total Time Spent (In Minutes): 15 Total Time Includes: Examination of the Patient, Discharge Planning, Medication Reconciliation, Communication With Other Providers and Other Discharge Plan Discharge Items Patient Disposition: Home - Self-Care Reason For Visit: Calyceal Diverticulum Discharge Diagnosis: caylceal diverticulum Discharge Goals: Improve function, Prevent disease and Therapeutic intervention Activity: Per 'Additional Instructions' section Activity Comment: walking and stairs in your home are okay. Lifting: No more than 10 pounds Bathing Comment: Okay to shower once drain removed, sponge bath until then. Sexual Activity: Wait until after follow-up appointment Exercise/Sports: Rest today Driving/Machine Use: Resume 1 day after discharge Driving/Machine Use Comment: Please do not drive while taking prescription pain medications. Non-emergency contact: Urologist Call non-emergency contact if: your symptoms worsen, your temperature is above 101, your wound has increased redness, your wound has increased drainage and your wound pain has increased Follow-up/Referrals: Mady Marti CRNP [Nurse Practitioner] - 09/22/18 11:00 am (ALEX drain removal - please call in the morning if > 100cc output on Saturday, will keep drain longer. ) Ramirez Rodriguez II, DO [Physician] - 09/30/18 3:00 pm Christiana Russo M.D. [Primary Care Provider] - Diet: Regular Addtl Provider Instructions: Please take all medications as prescribed and keep all follow-ups as scheduled. Please call our office at [phone] with any questions, concerns or need to reschedule appointments for any reason. We are happy to assist you. Recovering at home: We recommend having someone with you for the first few days after surgery to help care for you. It is okay to shower. Please avoid swimming, bathing or using hot tub until incisions are well healed. Avoid driving or drinking alcohol until you are not requiring pain medication any further. Walk at least a few times a day. Increase your distance, as you feel able. Stairs in your home are okay. Please avoid strenuous or sexual activity until your follow-up. We recommend using stool softener (i.e. Colace) to prevent constipation and straining, especially the first two weeks post operatively. Call [facility] at [phone] if you experience: Chest pain or trouble breathing (call [phone] or go to the hospital). Fever of 101F or higher Symptoms of infection at incision site, including redness or swelling, warmth, or bad-smelling drainage Very bloody urine Pain that is not controlled with medicines Prescriptions: New amoxicillin-pot clavulanate [Augmentin] 875-125 mg tablet 1 tab PO BID Qty: 14 RF: 0 docusate sodium [Colace] 100 mg capsule 100 mg PO BID PRN (Reason: constipation) Qty: 60 RF: 0 oxycodone-acetaminophen [Percocet] 7.5-325 mg tablet 1 tab PO Q6H PRN (Reason: pain) Qty: 25 RF: 0 Continued carvedilol [Coreg] 25 mg Tablet 25 mg PO BID RF: 0 phenoxybenzamine 10 mg Capsule 10 mg PO TID RF: 0 tamsulosin 0.4 mg Capsule 0.4 mg PO QPM RF: 0 ropinirole 2 mg Tablet 2 mg PO HS RF: 0 Stand-Alone Forms: Counts Include [facility] Discharge Orders: Discharge Order (Routine); Ordered 09/22/18 Ordered By: Vira Bang Admission Data Admit Date/Time: 09/18/18 12:57 Attending Provider: Ramirez Rodriguez II Admit Provider: Ramirez Rodriguez II Primary Care Provider: Christiana Russo Other Providers: Vonnie Gandara ; Raymundo Solis ; Hussein Oh ; Fredy Reyes ; Mady Marti ; Austin Eason ; Gregorio Lea I. ; Gray Patterson ; Binu Orozco ; Vira Bang ; Chikis Daniels ; Ghislaine Vergara Service: Telemetry Other Interventions: Discharge Summary Assessment (RN) Last Done: 09/22/18 12:51 DC Date/Time DO NOT enter until pt leaves facility: 09/22/18 15:10
== END 2018-09-22 15:10 | disposition home or self-care (01) | DRG 659 ==
LOC: ASU 05:51 → 2E 12:57 → 3N 09-19 08:26 → 2S 09-20 04:06